=== PATIENT | male | born 1945 | race African-American/Black ===

== ENCOUNTER → 2016-10-28 | Outpatient (CLI) | payer OTHER ==
--- NOTE | 2016-10-28 17:16 | CT ---
CT Abdomen and Pelvis Without Contrast Clinical indication: Peritoneal dialysis catheter not draining. TECHNIQUE: 1.25 mm contiguous helical axial scanning through the abdomen and pelvis without contrast. Dose reduction technique was performed. Routine reconstructions were performed in the coronal and sa gittal planes. FINDINGS: The lung bases are clear. The liver, gallbladder, spleen, and adrenals are unremarkable. There is mild perinephric stranding. T he peritoneal dialysis catheter enters the peritoneum in the lower abdomen and is curled in the pelvi s. There is minimal fluid around it. A small amount of urine is noted in the bladder. Bilateral adeno mercedes is noted in both groins. IMPRESSION: 1. Peritoneal dialysis catheter coiled in the low pelvis. Minimal fluid is present. 2. Bilateral groin adenopathy. There are surgical clips suggesting there has been prior lymphadenecto my. The nodes are significantly enlarged up to 4.5 cm. Please correlate clinically and if clinically indicated these could be biopsied. A page was placed to Dr. Cedeno on October 28, 2016 at 1708 hours. I'm awaiting a return phone call. Critical results relayed by Dr. Potts to Dr. Fatima today at 1725 hours.
== END ==
LOC: FIMAGING 15:32
PROVIDERS: ATTEND Internal Medicine Nephrology
DX: Z49.02 Encounter for fitting and adjustment of peritoneal dialysis catheter (principal); R59.0 Localized enlarged lymph nodes

== ENCOUNTER → 2016-12-14 | Outpatient (CLI) | payer OTHER | LOC: FIMAGING 12:38 | PROVIDERS: ATTEND Internal Medicine Hematology & Oncology | DX: R59.0 Localized enlarged lymph nodes (principal); S86.112A Strain of other muscle(s) and tendon(s) of posterior muscle group at lower leg level, left leg, initial encounter ==

== ENCOUNTER → 2017-03-01 | Outpatient (CLI) | payer OTHER | LOC: FIMAGING 09:32 | PROVIDERS: ATTEND Internal Medicine Nephrology | DX: R59.1 Generalized enlarged lymph nodes (principal); E85.9 Amyloidosis, unspecified ==

== ENCOUNTER → 2017-03-24 | Outpatient (CLI) | payer OTHER | LOC: BHFA 13:30 | PROVIDERS: ATTEND Internal Medicine Cardiovascular Disease | DX: R07.9 Chest pain, unspecified (principal); R00.2 Palpitations; I13.0 Hypertensive heart and chronic kidney disease with heart failure and stage 1 through stage 4 chronic kidney disease, or unspecified chronic kidney disease; I10 Essential (primary) hypertension ==

== ENCOUNTER 2017-04-01 15:31 | Observation (INO) | payer OTHER ==
--- NOTE | 2017-04-01 15:39 | EDPHY ---
H & P HPI/ROS: HPI CHIEF COMPLAINT: Syncope during stress test, chest pain HISTORY OF PRESENT ILLNESS: This patient is 72-year-old male, significant past medical history for peritoneal dialysis, chronic kidney disease stage 5, hypertension, diabetes, BPH, was undergoing a [place] protocol stress test today. He had a syncopal episode while doing the test. He developed chest pain. The patient presents to the emergency room by EMS after he had a syncopal episode while undergoing a stress test with chest pain. Upon arrival here in the emergency room the nursing staff asked me to come and see and evaluate him as he was "in and out of consciousness" Upon evaluation the patient is slow to respond however he does follow commands response to my questions. He denies chest pain or shortness of breath at this time. Denies headache. Denies neck pain. Of note he appears unwell, slow to respond. Due to him developing a syncopal episode during his stress test and chest pain will consult Cardiology emergently for evaluation. Patient most likely needs cardiac catheterization. Past Medical History: Chronic kidney disease stage 5, peritoneal dialysis, hypertension, diabetes, BPH Past Surgical History: No recent surgical history, history of peritoneal dialysis catheter Social History: Denies daily use drugs alcohol tobacco Family History: No family at bedside. ROS REVIEW OF SYSTEMS: A comprehensive 10 point review of systems is otherwise negative aside from elements mentioned in the history of present illness. Exam Constitutional appears unwell, slow to respond, does follow commands triage nursing summary reviewed, vital signs reviewed, awake/alert. Eyes normal conjunctivae and sclera, EOMI, PERRLA. HENT normal inspection, atraumatic, moist mucus membranes, no epistaxis, neck supple/ no meningismus, no raccoon eyes. Respiratory clear to auscultation bilaterally, normal breath sounds, no respiratory distress, no wheezing. Cardiovascular rate normal, regular rhythm, no murmur, no edema, distal pulses normal. Gastrointestinal soft, non-tender, no rebound, no guarding, normal bowel sounds, no distension, no pulsatile mass. Genitourinary no CVA tenderness. Musculoskeletal no midline vertebral tenderness, full range of motion, no calf swelling, no tenderness of extremities, no meningismus, good pulses, neurovascularly intact. Skin pink, warm, & dry, no rash, skin atraumatic. Neurologic awake, alert and oriented x 3, AAOx3, moves all 4 extremities equally, motor intact, sensory intact, CN II-XII intact, normal cerebellar, normal vision, normal speech. Psychiatric normal mood/affect. Heme/Lymph/Immune no lymphadenopathy. Differential Diagnosis: Includes but is not limited to in a particular order syncope during stress test, acute [place], ischemic cardiac disease, stroke, head bleed. Medical Decision Making: Plan for this patient full cardiac exercise specialist, EKG, IV establishment, IV blood work, cardiology consultation, EKG to rule rule out acute coronary syndrome. Re-evaluation: EKG interpretation by me on record in [employer] system. Impression time of EKG 1539, this is sinus rhythm rate of 79 T-wave inversions V1 V2. ST depression V4 V5 V6. Motion artifact lead to 3 AVF. Prolonged QT interval of 502. EKG interpretation by me on record in [employer] system. Impression repeat EKG time a repeat EKG 1540, this is sinus rhythm rate of 78 T-wave inversions V1 V2, no ST elevation appreciated. S 1549: At this time I did page Cardiology for an emergent consult for this patient. At this time patient is hemodynamically stable. Will proceed with IV fluid bolus full cardiac exercise specialist blood work CT head chest x-ray. 1613: Spoke with Dr. Sin Souza, who would like this patient admitted to the medicine service. Will plan for medical clearance and then cardiac catheterization most likely tomorrow. At this time patient is chest pain-free. CT scan of the head without IV contrast The results of the study are negative for anything acute The study was read by Dr. Bain. I viewed the images myself on the PACS system. 1712: This patient remained stable. No acute distress. Resting comfortably. at bedside. Plan will be for admission given chest pain and syncope during stress test. Is noted his troponin is negative. Does have D-dimer but gets peritoneal dialysis. He is not hypoxic and not tachycardic here. His EKG did show some T-waves. He currently does not have any chest pain or shortness of breath. Plan will be for admission. NPO at midnight. Most likely cardiac catheterization tomorrow. Source: Patient, EMS - Medical/Surgical History Hx Asthma: No Hx Chronic Respiratory Disease: No Hx Diabetes: No Hx Cardiac Disease: No Hx Renal Disease: Yes Hx Cirrhosis: No Hx Alcoholism: No Hx HIV/AIDS: No Hx Splenectomy or Spleen Trauma: No Other PMH: ANEMIA, HYPOALDOSTERONISM, DVT, GOUT, HTN, B-CELL LYMPHOMA, AMYLOIDOSIS, CKD, DM 1, - Social History Smoking Status: Never smoked Constitutional: Initial Vital Signs Temperature (C) 36.3 C 04/01/17 15:31 Heart Rate 76 04/01/17 15:31 Respiratory Rate 18 04/01/17 15:31 Blood Pressure 157/96 H 04/01/17 15:31 O2 Sat (%) 97 04/01/17 15:31 O2 Delivery Mode Nasal Cannula O2 (L/minute) 2 Allergies/Adverse Reactions: LUIS M Inhibitors [Luis M Inhibitors] Allergy (Severe, Verified 07/28/10 20:15) Lip swelling Home Medications: Medication Instructions Recorded Calcitriol [Calcitriol (*)] 0.25 mcg PO DAILY 04/01/17 Fludrocortisone Acetate [Florinef 0.1 mg PO DAILY 04/01/17 0.1 MG (RX)] Gabapentin 600 mg PO HS 04/01/17 Metoprolol Tartrate [Metoprolol 25 mg PO BID MDD STARTED 03/25/17 04/01/17 Tartrate] Pantoprazole Sodium [Protonix 40mg 40 mg PO DAILY PRN 04/01/17 (*)] Sevelamer Carbonate [Renvela] 800 mg PO BID 04/01/17 Sildenafil Citrate [Viagra 50 MG 50 mg PO DAILY PRN 04/01/17 (*)] Tamsulosin HCl [Tamsulosin HCl] 0.4 mg PO DAILY 04/01/17 traMADol [Ultram 50 mg (*)] 50 mg PO Q4 PRN 04/01/17 Medical Decision Making - Diagnostics Imaging Results: Imaging Impressions Chest X-Ray 04/01/17 15:44 Impression: 1. No acute pulmonary disease. 2. Atherosclerotic tortuous aorta. Head CT 04/01/17 15:45 Impression: 1. Minimal cerebral atrophy. 2. No acute hemorrhage, hydrocephalus or mass effect. 3.Consider MRI of the brain without and with contrast enhancement, if there is continued clinical concern. Findings and recommendations discussed with Emergency Department physician, Justny Arteaga MD at 16:41 hour, 04/01/2017. Final report concurs with initial preliminary interpretation. - Data Points Laboratory Results: Laboratory Results 04/01/17 15:35 04/01/17 15:35 04/01/17 04/01/17 04/01/17 15:35 15:35 15:35 WBC 4.84 10^3/uL 10^3/uL (3.80-9.50) RBC 2.86 10^6/uL L 10^6/uL (4.40-6.38) Hgb 8.7 g/dL L g/dL (13.7-17.5) Hct 26.8 % L % (40.0-51.0) MCV 93.7 fL fL (81.5-99.8) MCH 30.4 pg pg (27.9-34.1) MCHC 32.5 g/dL g/dL (32.4-36.7) RDW 13.5 % % (11.5-15.2) Plt Count 209 10^3/uL 10^3/uL (150-400) MPV 9.3 fL fL (8.7-11.7) Neut % (Auto) 58.3 % % (39.3-74.2) Lymph % (Auto) 26.0 % % (15.0-45.0) [place] % (Auto) 12.4 % % (4.5-13.0) Eos % (Auto) 2.3 % % (0.6-7.6) Baso % (Auto) 0.8 % % (0.3-1.7) Nucleat RBC Rel Count 0.0 % % (0.0-0.2) Absolute Neuts (auto) 2.82 10^3/uL 10^3/uL (1.70-6.50) Absolute Lymphs (auto) 1.26 10^3/uL 10^3/uL (1.00-3.00) Absolute Monos (auto) 0.60 10^3/uL 10^3/uL (0.30-0.80) Absolute Eos (auto) 0.11 10^3/uL 10^3/uL (0.03-0.40) Absolute Basos (auto) 0.04 10^3/uL 10^3/uL (0.02-0.10) Absolute Nucleated RBC 0.00 10^3/uL 10^3/uL (0-0.01) Immature Gran % 0.2 % % (0.0-1.1) Immature Gran # 0.01 10^3/uL 10^3/uL (0.00-0.10) PT 14.4 SEC SEC (12.0-15.0) INR 1.13 (0.83-1.16) APTT 26.5 SEC SEC (23.0-38.0) D-Dimer 3.27 ug/mLFEU H ug/mLFEU (0.00-0.50) Sodium 137 mEq/L mEq/L (134-144) Potassium 4.7 mEq/L mEq/L (3.5-5.2) Chloride 97 mEq/L mEq/L (97-110) Carbon Dioxide 23 mEq/l mEq/l (22-31) Anion Gap 17 mEq/L H mEq/L (8-16) BUN 70 mg/dL H mg/dL (7-23) Creatinine 12.8 mg/dL H* mg/dL (0.7-1.3) Estimated GFR 4 Glucose 83 mg/dL mg/dL (70-100) Calcium 9.2 mg/dL mg/dL (8.5-10.4) Magnesium 2.3 mg/dL mg/dL (1.6-2.3) Total Bilirubin 0.7 mg/dL mg/dL (0.1-1.4) Conjugated Bilirubin 0.6 mg/dL H mg/dL (0.0-0.5) Unconjugated Bilirubin 0.1 mg/dL mg/dL (0.0-1.1) AST 23 IU/L IU/L (17-59) ALT 31 IU/L IU/L (21-72) Alkaline Phosphatase 89 IU/L IU/L (38-126) Creatine Kinase 403 IU/L H IU/L (0-224) CK-MB (CK-2) Fraction 3.61 ng/mL H ng/mL (0-3.19) CK-MB (CK-2) % 0.9 % % (0.0-4.0) Creatine Kinase Interp NEGATIVE (NEGATIVE) Troponin I 0.022 ng/mL ng/mL (0-0.034) NT-Pro-B Natriuret Pep 6250 pg/mL H pg/mL (0-125) Total Protein 6.4 g/dL g/dL (6.3-8.2) Albumin 3.9 g/dL g/dL (3.5-5.0) Lipase 235.0 IU/L IU/L (23-300) Medications Given: Discontinued Medications Sodium Chloride (Ns) 500 mls @ 1,000 mls/hr IV ONCE ONE PRN Reason: Protocol Stop: 04/01/17 16:13 Last Admin: 04/01/17 16:06 Dose: 500 mls Departure - Departure Disposition: [facility] Inpatient Acute Clinical Impression: Chest pain Qualifiers: Chest pain type: unspecified Qualified Code(s): R07.9 - Chest pain, unspecified Syncope Qualifiers: Syncope type: unspecified Qualified Code(s): R55 - Syncope and collapse Condition: Fair Referrals: Patient,NotPresent [Unknown] - As per Instructions
[2017-04-01] MEDS ORDERED: NS 500 ML IV ONE (15:44)
--- NOTE | 2017-04-01 15:46 | CPEKG ---
Heart Rate: 78 RR Interval: 769 P-R Interval: 216 QRSD Interval: 88 QT Interval: 436 QTC Interval: 497 P [place]: 44 QRS [place]: 5 T Wave [place]: 63 EKG Severity - BORDERLINE ECG - EKG Impression: SINUS RHYTHM EKG Impression: BORDERLINE T ABNORMALITIES, ANT-LAT LEADS EKG Impression: BORDERLINE PROLONGED QT INTERVAL Electronically Signed By: Justyn Arteaga 01-Apr-2017 23:18:32
[2017-04-01 15:56] LABS: % IMMATURE GRANULYOCYTES 0.2 % (0.0-1.1); ABSOLUTE IMMATURE GRANULOCYTES 0.01 10^3/uL (0.00-0.10); ADD DIFF? NO; ADD MORPH? NO; ADD SCAN? NO; ATYPICAL LYMPHOCYTE FLAG 0 (0-99); FRAGMENT RBC FLAG 0 (0-99); HEMATOCRIT 26.8 % (40.0-51.0); HEMOGLOBIN 8.7 g/dL (13.7-17.5); LEFT SHIFT FLG 0 (0-99); LIPEMIA HEMOLYSIS FLAG 80 (0-99); MEAN CELL HEMOGLOBIN 30.4 pg (27.9-34.1); MEAN CELL HEMOGLOBIN CONCENTR. 32.5 g/dL (32.4-36.7); MEAN CELL VOLUME 93.7 fL (81.5-99.8); MEAN PLATELET VOLUME 9.3 fL (8.7-11.7); PLATELET CLUMPS FLAG 0 (0-99); PLATELET COUNT 209 10^3/uL (150-400); RED BLOOD CELL COUNT 2.86 10^6/uL (4.40-6.38); RED CELL DISTRIBUTION WIDTH 13.5 % (11.5-15.2)
[2017-04-01 16:05] LABS: ALANINE AMINOTRANSFERASE 31 IU/L (21-72); ALBUMIN 3.9 g/dL (3.5-5.0); ALKALINE PHOSPHATASE 89 IU/L (38-126); ANION GAP 17 mEq/L (8-16); APTT 26.5 SEC (23.0-38.0); ASPARTATE AMINOTRANSFERASE 23 IU/L (17-59); BILIRUBIN,TOTAL 0.7 mg/dL (0.1-1.4); BILIRUBIN-CONJUGATED 0.6 mg/dL (0.0-0.5); BILIRUBIN-UNCONJUGATED 0.1 mg/dL (0.0-1.1); CALCIUM 9.2 mg/dL (8.5-10.4); CARBON DIOXIDE 23 mEq/l (22-31); CHLORIDE 97 mEq/L (97-110); GLOMERULAR FILTRATION RATE 4; GLUCOSE 83 mg/dL (70-100); INR 1.13 (0.83-1.16); MAGNESIUM 2.3 mg/dL (1.6-2.3); POTASSIUM 4.7 mEq/L (3.5-5.2); PROTIME(PATIENT) 14.4 SEC (12.0-15.0); SODIUM 137 mEq/L (134-144); TOTAL PROTEIN 6.4 g/dL (6.3-8.2)
[2017-04-01 16:17] LABS: TROPONIN I 0.022 ng/mL (0-0.034)
[2017-04-01 16:27] LABS: CREATININE 12.8 mg/dL (0.7-1.3)
[2017-04-01 16:28] LABS: CK-MB INTERPRETATION NEGATIVE (NEGATIVE); CREATINE KINASE-MB FRACTION 3.61 ng/mL (0-3.19)
[2017-04-01] MEDS ORDERED: SILDENAFIL CITRATE 50 MG TAB PO PRN (17:57)
[2017-04-01] MEDS ORDERED: PANTOPRAZOLE SODIUM 40 MG TAB PO PRN (17:57)
--- NOTE | 2017-04-01 18:09 | GHP ---
[f rep st] HISTORY AND PHYSICAL DATE OF ADMISSION: 04/01/2017 CHIEF COMPLAINT: Passed out. HISTORY OF PRESENT ILLNESS: This is a 72-year-old male with history of amyloidosis and stage 5 chronic kidney disease on peritoneal dialysis who has been having intermittent chest pain with exertion for some time. Today he was at [facility] when he was undergoing a treadmill stress test, when he became quite winded and developed what he describes as some sharp chest pressure. He then lost consciousness and passed out. Upon coming to, he had been noted to be confused over the past few hours. The patient is unable to tell me what happened. At the time of my exam, he is chest pain free. He denies any shortness of breath. He does continued to have some confusion. He has been dialyzing at home every night without issues. He recently saw his manager state yesterday who thought he was doing well. PAST MEDICAL HISTORY: 1. Amyloidosis. 2. Anemia of chronic disease. 3. Stage 5 chronic kidney disease on peritoneal dialysis. 4. DVT. 5. Depression. 6. Type 2 diabetes mellitus. 7. B-cell lymphoma. 8. Hypertension. 9. Gout. 10. Nocturia. 11. Prostate cancer. PAST SURGICAL HISTORY: 1. Left knee replacement. 2. Lymph node biopsy. 3. Tonsillectomy. 4. Vasectomy. 5. Peritoneal dialysis catheter placement. HOME MEDICATIONS: Reviewed. Refer to [employer] for details. ALLERGIES: KAY inhibitors. SOCIAL HISTORY: He denies any alcohol, tobacco, or illicit drug use. FAMILY HISTORY: Reviewed and noncontributory. PHYSICAL EXAMINATION: VITAL SIGNS: Blood pressure 155/98, pulse 78, respiratory rate 16, O2 saturation 96% on 2 L. Temperature afebrile. GENERAL: No acute distress. HEENT: Head: Normocephalic, atraumatic. Eyes: PERRLA. Sclerae anicteric. Mouth: Moist mucous membranes. NECK: Supple. No lymphadenopathy. CARDIOVASCULAR: S1, S2. No JVD. No lower extremity edema. PULMONARY: Lungs are clear. No wheezes, rales, or rhonchi. ABDOMEN: Soft, nontender, nondistended. No guarding or rebound tenderness. Normoactive bowel sounds. Peritoneal dialysis catheter is in place. EXTREMITIES: No clubbing or cyanosis. NEURO: Cranial nerves 2-12 grossly intact. No focal motor or sensory deficits. SKIN: Clear. No rashes. DIAGNOSTICS: WBC is 4.8, hemoglobin 8.7, hematocrit 26.8, platelets 209. D- dimer is 3.27. Sodium 137, potassium 4.7, BUN 70, creatinine 12.8, glucose 83. BNP 6250. Troponin was negative. Head CT showed no acute hemorrhage, hydrocephalus or mass effect. Chest x-ray: No acute pulmonary disease. EKG, which I visualized and personally interpreted, shows sinus rhythm, rate 78 beats per minute. There are T-wave abnormalities in the anterior leads. ASSESSMENT AND PLAN: This is a 72-year-old male with history of end-stage renal disease, who has been having exertional chest pain suspicious for angina for some time presenting with: 1. Syncope in the setting of exertion with a stress test, concerning for acute coronary syndrome. Plan: The patient will be placed on observation where we will cycle his troponins. Cardiology has been consulted by the emergency room physician, Dr. Arteaga. Will plan for cardiac catheterization in the morning. 2. Elevated D-dimer with history of pulmonary embolisms. 3. Plan: I initially considered a CTA of the chest, but decided against it since he still makes urine. He is currently asymptomatic. Consider VQ scan in the morning if PE is a concern. 4. End-stage renal disease, on peritoneal dialysis. Plan is to continue hemodialysis as scheduled. 5. Mild confusion of unclear etiology. Plan: Continue to monitor. I suspect that this is most likely due to his syncopal episode where he probably had some decrease in cerebral perfusion. Suspect a cardiac source. We will also order an echocardiogram. /[id number]/MODL MTDD
[2017-04-01] MEDS ORDERED: GABAPENTIN 300 MG CAP PO SCH (21:00)
[2017-04-01] MEDS: SEVELAMER HCL 800 MG TAB PO SCH (22:18)
[2017-04-01] MEDS: METOPROLOL TARTRATE 25 MG TAB PO SCH (22:18)
[2017-04-02 03:52] VITALS: TEMP 98.1
[2017-04-02] MEDS ORDERED: CALCITRIOL 0.25 MCG CAP PO SCH (09:00)
[2017-04-02] MEDS ORDERED: TAMSULOSIN HCL 0.4 MG CAP PO SCH (09:00)
[2017-04-02] MEDS ORDERED: FLUDROCORTISONE ACETATE 0.1 MG TAB PO SCH (09:00)
--- NOTE | 2017-04-02 10:17 | ECHO ---
[id number] + + [id number] : : [place] [id number] : : [phone] + + Adult Echocardiographic Report + ------+ :Name: MARC SALDANA DStudy Date: 04/02/2017 08:34 AM BP: 105/62 mmHg : : Hospital Admission Number: [id number] [facility] n: 214: :: 1945 Gender: Male Height: 68 in : :Age: 72 yrs Race: [facility] [place] Weight: 192 lb : :Reason For Study: syncope : : BSA: 2.0 meters 2 : :History: syncope : + ------+ MMode/2D Measurements \T\ Calculations IVSd: 1.1 cm RVDd: 2.8 cm FS: 34.9 % Ao root diam: LVPWd: 0.94 cm LVIDd: 4.7 cm EDV(Teich): 3.6 cm LVIDs: 3.1 cm 103.5 ml ESV(Teich): 37.2 ml EF(Teich): 64.1 % LVLd ap4: 10.1 cm SV(MOD-sp4): EDV(MOD-sp4): 102.0 ml 172.0 ml LVLs ap4: 8.7 cm ESV(MOD-sp4): 70.0 ml EF(MOD-sp4): 59.3 % Normal Measurement Values: + + :LVIDd (3.5-5.7cm) IVSd (0.6-1.1cm) LVPWd (0.6-1.1cm) Aortic Root (2.0-3.7cm)Left Atrium (1.5-4.0cm): :LV Vol(d) (76-115ml) LV Vol(s) (29-48ml) Ejec Fraction (50-65%)PV Pedro (0.6- 1.2m/s) TV Pedro (0.4-1.0m/s) : :MV E Pedro (0.8-1.0m/s)MV A Pedro (0.3-1.0m/s)LVOT Pedro (0.7-1.2m/s) Asc Ao Pedro ( 0.9-1.8m/s) : + + Doppler Measurements \T\ Calculations MV E max pedro: Ao V2 max: LV V1 max: PA V2 max: 66.1 cm/sec 134.2 cm/sec 92.2 cm/sec 89.6 cm/sec MV A max pedro: Ao max P.2 mmHgLV V1 max PG: PA max P.3 cm/sec 3.4 mmHg 3.2 mmHg MV E/A: 1.3 MV dec time: 0.27 sec TR max pedro: 167.0 cm/sec TR max P.1 mmHg RAP systole: 5.0 mmHg RVSP(TR): 16.1 mmHg Left Ventricle The left ventricle is normal in size and function. There is borderline concentric left ventricular hypertrophy. Ejection Fraction = 60%. Small area of discrete hypokinesis in the mid septum. The remaining velázquez contract normally. Right Ventricle The right ventricle is normal in size and function. Atria The left atrium is mildly dilated. The Left Atrial Volume is 38 ml/m2. Right atrial size is normal. Mitral Valve The mitral valve is normal in structure and function. There is no mitral valve stenosis. There is trace mitral regurgitation. Tricuspid Valve The tricuspid valve is normal in structure and function. There is no tricuspid stenosis. There is trace tricuspid regurgitation. Right ventricular systolic pressure is 16mmHg. Aortic Valve The aortic valve is trileaflet. There is no aortic stenosis. There is no aortic insufficiency. Pulmonic Valve The pulmonic valve is not well visualized. Trace pulmonic valvular regurgitation. Great Vessels The aortic root is normal size. Pericardium/Pleural There is no pericardial effusion. Conclusion A two-dimensional transthoracic echocardiogram with M-mode and Doppler was performed. The left ventricle is normal in size and function. There is borderline concentric left ventricular hypertrophy. Ejection Fraction = 60%. Small area of discrete hypokinesis in the mid septum. The remaining velázquez contract normally. The left atrium is mildly dilated. The Left Atrial Volume is 38 ml/m2. There is trace mitral regurgitation. There is trace tricuspid regurgitation. Right ventricular systolic pressure is 16mmHg. Trace pulmonic valvular regurgitation. Final Reading Physician: Silvino Armenta signed on 04/02/2017 10:16 AM Ordering Physician: Adalberto Rahman Performed By: Roxann Tracy
[2017-04-02] MEDS ORDERED: VERAPAMIL 5 MG/2 ML VIAL ONE (10:40)
[2017-04-02] MEDS ORDERED: MIDAZOLAM 2 MG/2 ML VIAL ONE (10:40)
[2017-04-02] MEDS ORDERED: LIDOCAINE 1% 300 MG/30 ML SDV ONE (10:40)
[2017-04-02] MEDS ORDERED: HEPARIN 10,000 UNIT/10 ML MDV ONE (10:40)
[2017-04-02] MEDS ORDERED: fentaNYL 100 MCG/2 ML INJ ONE (10:40)
[2017-04-02] MEDS ORDERED: IOPAMIDOL (ISOVUE-370) 150 ML BTL IV ONE (10:41)
--- NOTE | 2017-04-02 11:42 | PDDXCAT ---
Diagnostic Cath Note - . Date: 04/02/17 Mercantile Agent: Harley Indication: Class III or IV angina, which improves to class I/II w medical therapy, High-risk criteria on noninvasive testing (choose option below) High-risk criteria on non-invasive testing: high-risk treadmill score (score<=- 11) - Procedure Access: left wrist Procedure: left heart catheterization, coronary angiography, left ventriculogram - Materials Left Heart Cath size: 5F Left Heart Cath materials: JL5.0, JR4.0 - Findings-Left Heart Catheterization LM: Unobstructed LAD: Unobstructed LCX: Dominant:unobstructed RCA: Nondominant. Unobstructed. EDP: 15mmHg LVEF: 55% Wall motion: normal Complications: none Estimated blood loss: <50ml Closure method: TR Band Assessment: Normal Cors. Normal systolic function with elevated filling pressures. Angina related to anemia Patient Problems: Problems Problem Status Onset Headache Active Renal failure Acute Hyperkalemia Acute Chest pain Acute Syncope Acute
[2017-04-02] MEDS: SEVELAMER HCL 800 MG TAB PO SCH (13:47)
[2017-04-02] MEDS: METOPROLOL TARTRATE 25 MG TAB PO SCH (13:48)
[2017-04-02 14:39] VITALS: BP 127/75; PULSE 57; RESP 16; O2SAT 99
--- NOTE | 2017-04-02 15:27 | GHP ---
[f rep st] HISTORY AND PHYSICAL DATE OF ADMISSION: 04/01/2017 DISCHARGE DIAGNOSES: 1. Syncope while doing treadmill stress test. 2. End-stage renal disease on peritoneal dialysis. 3. History of amyloid. 4. Anemia. 5. History of deep venous thrombosis. 6. Depression. 7. Type 2 diabetes. 8. Hypertension. HISTORY: This is a 72-year-old male, who is on peritoneal dialysis. He is having intermittent ches t pain with exertion. He underwent stress testing, but then became quite winded, said he could not do it anymore and then had chest pain and lost consciousness. HOSPITAL COURSE: Patient was admitted and was monitored on telemetry. He did undergo a CT angiogra m in the morning which did not show any coronary blockages. He is doing well and will be discharged home. I am wondering if he might have been on the water meter mechanic side when doing the stress test or perhaps could not get his heart rate up enough for the level of activity. Regardless, he will be discharge d home today. He will follow up with Nephrology in the future in regard to any more symptoms. /[id number]/MODL
== END 2017-04-02 17:00 | disposition home or self-care (01) ==
LOC: EDUNIT# → INTOOBSV 17:12 → F2W 19:31
PROVIDERS: ADMIT Family Medicine; ATTEND Family Medicine
PROC: B2151ZZ Fluoroscopy of Left Heart using Low Osmolar Contrast (ICD-10-PCS; principal; 2017-04-01)
PROC: B2111ZZ Fluoroscopy of Multiple Coronary Arteries using Low Osmolar Contrast (ICD-10-PCS; principal; 2017-04-01)
PROC: 4A023N7 Measurement of Cardiac Sampling and Pressure, Left Heart, Percutaneous Approach (ICD-10-PCS; principal; 2017-04-01)
DX: R55 Syncope and collapse (principal); R07.9 Chest pain, unspecified; I12.0 Hypertensive chronic kidney disease with stage 5 chronic kidney disease or end stage renal disease; E11.22 Type 2 diabetes mellitus with diabetic chronic kidney disease; N18.5 Chronic kidney disease, stage 5; N40.0 Benign prostatic hyperplasia without lower urinary tract symptoms; Z99.2 Dependence on renal dialysis; D64.9 Anemia, unspecified; Z86.718 Personal history of other venous thrombosis and embolism; F32.9 Major depressive disorder, single episode, unspecified
CPT/HCPCS: 70450; 71010; 93005; 93306; 93458; 93880; 96360; 97161; 97165; 99285; C1769; G0378; G8978; G8979; G8980; G8987; G8988; G8989; J1644; J2250; J3010; Q9967

== ENCOUNTER → 2017-04-01 | Outpatient (CLI) | payer OTHER | LOC: BHFA 13:15 | PROVIDERS: ATTEND Internal Medicine Cardiovascular Disease | DX: R07.9 Chest pain, unspecified (principal); I10 Essential (primary) hypertension ==

== ENCOUNTER → 2017-04-16 | Outpatient (CLI) | payer OTHER | LOC: BHFA 14:00 | PROVIDERS: ATTEND Internal Medicine Cardiovascular Disease | DX: R07.9 Chest pain, unspecified (principal); R00.2 Palpitations; N28.9 Disorder of kidney and ureter, unspecified; I10 Essential (primary) hypertension ==

== ENCOUNTER → 2017-06-03 | Outpatient (CLI) | payer OTHER | LOC: FIMAGING 13:11 | PROVIDERS: ATTEND Internal Medicine Cardiovascular Disease | DX: R06.02 Shortness of breath (principal) | CPT/HCPCS: 71020; 78582; A9540; A9558 ==

== ENCOUNTER → 2017-06-04 | Day surgery (SDC) | payer OTHER | END | disposition home or self-care (01) | LOC: BMCIMAGING 09:09 | PROVIDERS: ATTEND Urology | DX: C61 Malignant neoplasm of prostate (principal) ==

== ENCOUNTER → 2017-06-24 | Outpatient (CLI) | payer OTHER | LOC: BHFA 11:00 | PROVIDERS: ATTEND Internal Medicine Cardiovascular Disease | DX: R07.9 Chest pain, unspecified (principal); R06.09 Other forms of dyspnea ==

== ENCOUNTER → 2017-09-08 | Outpatient (CLI) | payer OTHER | LOC: BHFA 10:00 | PROVIDERS: ATTEND Internal Medicine Cardiovascular Disease | DX: R06.09 Other forms of dyspnea (principal) ==

== ENCOUNTER → 2017-09-14 | Outpatient (CLI) | payer OTHER | LOC: BHFA 14:00 | PROVIDERS: ATTEND Internal Medicine Cardiovascular Disease | DX: R06.02 Shortness of breath (principal) ==

== ENCOUNTER 2017-09-24 09:44 | Day surgery (SDC) | payer OTHER ==
[~2017-09-24 09:44] MED LIST: ACETAMINOPHEN 325 MG TAB PO PRN; NS 1,000 ML IV SCH; TEMAZEPAM 15 MG CAP PO PRN
[2017-09-24] MEDS ORDERED: MIDAZOLAM 2 MG/2 ML VIAL ONE (10:02)
[2017-09-24] MEDS ORDERED: fentaNYL 100 MCG/2 ML INJ ONE (10:02)
[2017-09-24] MEDS ORDERED: LIDOCAINE 1% 300 MG/30 ML SDV ONE (10:02)
--- NOTE | 2017-09-24 10:29 | CPEKG ---
Heart Rate: 72 RR Interval: 833 P-R Interval: 168 QRSD Interval: 106 QT Interval: 488 QTC Interval: 535 P [place]: 38 QRS [place]: 7 T Wave [place]: 64 EKG Severity - ABNORMAL ECG - EKG Impression: SINUS RHYTHM EKG Impression: PROLONGED QT INTERVAL Electronically Signed By: Melisa Kaplan 24-Sep-2017 10:50:47
[2017-09-24 10:48] LABS: % IMMATURE GRANULYOCYTES 0.2 % (0.0-1.1); ABSOLUTE IMMATURE GRANULOCYTES 0.01 10^3/uL (0.00-0.10); ADD DIFF? NO; ADD MORPH? NO; ADD SCAN? NO; ATYPICAL LYMPHOCYTE FLAG 0 (0-99); FRAGMENT RBC FLAG 0 (0-99); HEMATOCRIT 27.8 % (40.0-51.0); HEMOGLOBIN 9.4 g/dL (13.7-17.5); LEFT SHIFT FLG 0 (0-99); LIPEMIA HEMOLYSIS FLAG 90 (0-99); MEAN CELL HEMOGLOBIN 31.6 pg (27.9-34.1); MEAN CELL HEMOGLOBIN CONCENTR. 33.8 g/dL (32.4-36.7); MEAN CELL VOLUME 93.6 fL (81.5-99.8); MEAN PLATELET VOLUME 8.7 fL (8.7-11.7); PLATELET CLUMPS FLAG 0 (0-99); PLATELET COUNT 210 10^3/uL (150-400); RED BLOOD CELL COUNT 2.97 10^6/uL (4.40-6.38); RED CELL DISTRIBUTION WIDTH 13.4 % (11.5-15.2)
--- NOTE | 2017-09-24 10:55 | PDHPUP ---
History & Physical Update H&P update statement: This history and physical update is based on an assessment of the patient which was completed after admission or registration (within 24 hours), but prior to the surgery/procedure. H&P update: H&P reviewed & patient examined, no change in patient's condition since H&P completed
--- NOTE | 2017-09-24 10:55 | PDPROPOC ---
Sedation Plan of Care Sedation Plan of Care: vital signs stable, mental status noted, patient educated of risks, benefits, alternatives, patient can tolerate sedation ASA Classification: ASA 2 Planned drugs: fentanyl, midazolam Mallampati Score: Class 2 Mallampati Reference Image: Patient passed 3-3-2 rule?: Yes
[2017-09-24 10:59] LABS: INR 1.12 (0.83-1.16); PROTIME(PATIENT) 14.6 SEC (12.0-15.0)
[2017-09-24 11:00] LABS: APTT 28.2 SEC (23.0-38.0)
[2017-09-24] MEDS ORDERED: NS 500 ML IV ONE (11:00)
[2017-09-24 11:21] LABS: ANION GAP 17 mEq/L (8-16); CALCIUM 9.6 mg/dL (8.5-10.4); CARBON DIOXIDE 27 mEq/l (22-31); CHLORIDE 94 mEq/L (97-110); GLOMERULAR FILTRATION RATE 4; GLUCOSE 96 mg/dL (70-100); POTASSIUM 3.3 mEq/L (3.5-5.2); SODIUM 138 mEq/L (134-144)
[2017-09-24 11:29] LABS: CREATININE 11.9 mg/dL (0.7-1.3)
--- NOTE | 2017-09-24 12:18 | PDDXCAT ---
Diagnostic Cath Note - . Date: 09/24/17 Tube Knitter: Other (renetta) Redevelopment Specialist: Chilo Indication: other (class III-IV NYHA, rule out cardiac amyloidosis) High-risk criteria on non-invasive testing: severe exercise left ventricular dysfunction (exercise LVEF<35%) - Procedure Access: right groin Procedure: left heart catheterization, right heart catheterization (and RV biopsies x 4) - Materials Left Heart Cath size: 6F Right Heart Cath size: 7F Right Heart Cath materials: PWP catheter - Findings-Right Heart Catheterization RA: 10 RV: 45/13 PA: 39/15 (25) PAOP: 18 AO: 145/90 CO: 7.3 CI: 3.6 Complications: none Estimated blood loss: <50ml Closure method: Angioseal Assessment: successfu LV and RV pressures assessment and RV bx x 4 Plan: await final cardiac bx pathology results. no change in current meds. Intervention: none Patient Problems: Problems Problem Status Onset Headache Active Chest pain Acute Hyperkalemia Acute Renal failure Acute Syncope Acute
[2017-09-24] MEDS ORDERED: HYDROCODONE/APAP 5/325 TAB PO PRN (12:20)
[2017-09-24] MEDS ORDERED: OXYCODONE/APAP 5/325 TAB PO PRN (12:20)
[2017-09-24] MEDS ORDERED: NITROGLYCERIN 0.4 MG BTL SL PRN (12:20)
[2017-09-24] MEDS ORDERED: ATROPINE SULFATE 1 MG/10 ML SYR IVP PRN (12:20)
[2017-09-24] MEDS ORDERED: ATROPINE SULFATE 1 MG/10 ML SYR ONE (12:54)
--- NOTE | 2017-09-24 15:34 | ECHO ---
[email or web address] [place] [id number] Main: [phone] Fax: Transthoracic Echocardiogram Name: MARC SALDANA MR#: [id number] Study Date: 09/24/2017 Study Time: 12:41 PM Date of : 1945 Age: 72 year(s) Height: ( ) Weight: ( ) BSA: Gender: Male Examination: Limited Echo Indication: Post Right heart biopsy. Image Quality: Contrast: Requested by: Hossein Hunter BP: / Heart Rate: Rhythm: Indication: Post Right heart biopsy. Procedure Staff Mechanical Operator: Robert Stinson Reading Physician: Hossein Hnuter Requesting Provider: Conclusions: This is a limited echo to evaluate for a pericardial effusion post biopsy. There is no obvious pericardial effusion. No fluid is noted around the RV freewall or RA in apical and subcostal views.. Measurements: Chambers Valvular Assessment AV/MV Valvular Assessment TV/PV Normal Normal Normal Name Value Range Name Value Range Name Value Range Continued Measurements: Findings: Exam Comments: This is a limited echo to evaluate for a pericardial effusion post biopsy. There is no obvious pericardial effusion. No fluid is noted around the RV freewall or RA in apical and subcostal views.. (No Signature Object) Patient: MARC SALDANA Study Date: 09/24/2017 Page 1 of 1 12:41 PM [id number]
--- NOTE | 2017-09-25 13:42 | CPIP ---
[f rep st] INVASIVE CARDIAC PROCEDURE DATE OF PROCEDURE: 09/24/2017 PROCEDURE PERFORMED: Right ventricular endomyocardial biopsies x4. INDICATIONS: Worsening shortness of breath and known amyloidosis of the kidneys, evaluate for cardia c amyloidosis. CONSENT: Risks, benefits, and alternatives discussed with patient and his son. They wished to proce ed. TECHNICAL DIFFICULTIES: None. MEDICATIONS USED: Versed 1 mg IV and fentanyl 25 mcg IV with continuous pulse oximetry and hemodynam ic monitoring. DESCRIPTION OF PROCEDURE AND RESULTS: The patient immediately beforehand had had a right heart clifton terization with a 7-Swiss sheath in the right femoral vein. This was J wired out for an out of plan e biopsy sheath. There was moderate amount of difficulty getting the biopsy sheath up through the in ferior vena cava out to the right ventricular apex. Eventually this was done under fluoroscopic and Sylva-Kenny catheter support. RV biopsies x4 were done along the right ventricular septum under fluoro scopic guidance. At the end of the case, the bioptome and RV biopsy sheath were removed. Manual hemostasis was done o f the right groin with no residual bleeding. The patient did have some back pain in the recovery carlos m afterwards. He has known chronic spine problem. An emergent echo was done which demonstrated continued LVEF of 55%-60% with hypertrophy and no signif icant pericardial effusion or tamponade. IMPRESSIONS: Successful right ventricular biopsies x4 along the right ventricular septum. Pathology is pending. COMPLICATIONS: None. In particular, fluoroscopy at the end of the case demonstrated no change in heart size to suggest a r apidly accumulating pericardial effusion nor did the echo in the CVC afterwards. Fluoroscopy also de monstrated no evidence of pneumothorax in the either lung corcoran. /[id number]/MODL
== END 2017-09-24 18:34 | disposition home or self-care (01) ==
LOC: FCATH 09:44
PROVIDERS: ATTEND Internal Medicine Cardiovascular Disease
PROC: B2111ZZ Fluoroscopy of Multiple Coronary Arteries using Low Osmolar Contrast (ICD-10-PCS; principal; 2017-09-24)
PROC: B2151ZZ Fluoroscopy of Left Heart using Low Osmolar Contrast (ICD-10-PCS; principal; 2017-09-24)
PROC: 02B Heart and Great Vessels, Excision (ICD-10-PCS; principal; 2017-09-24)
PROC: 4A023N8 Measurement of Cardiac Sampling and Pressure, Bilateral, Percutaneous Approach (ICD-10-PCS; principal; 2017-09-24)
DX: E85.4 Organ-limited amyloidosis (principal); D64.9 Anemia, unspecified
CPT/HCPCS: C1760; J0461; J1644; J2250; J3010

== ENCOUNTER 2017-11-11 21:07 | Inpatient (IN) | payer OTHER ==
--- NOTE | 2017-11-11 21:23 | CPEKG ---
Heart Rate: 90 RR Interval: 667 P-R Interval: 168 QRSD Interval: 104 QT Interval: 436 QTC Interval: 534 P Trevorton: 63 QRS Trevorton: -5 T Wave Trevorton: 68 EKG Severity - ABNORMAL ECG - EKG Impression: SINUS RHYTHM EKG Impression: PROLONGED QT INTERVAL Electronically Signed By: Consuelo Duncan 11-Nov-2017 21:38:48
--- NOTE | 2017-11-11 21:31 | EDPHY ---
HPI/HX/ROS/PE/MDM Narrative: CHIEF COMPLAINT: Chest and back pain HISTORY OF PRESENT ILLNESS: The patient is a 72 y/o male arriving with his son complaining of intermittent chest and back pain onset this evening around 17:30 , about 4 hours ago. His medical history includes amyloidosis, stage 5 kidney disease on peritoneal dialysis, anemia, diabetes, B-cell lymphoma, and hypertension. He completed his 3rd round of chemotherapy today for amyloidosis. This evening he developed chest pressure that "pushed through" to his back and he had difficulty catching his breath due to the pain. This pain would come and go, but he is unable to estimate how long it lasts in seconds vs. minutes or hours. The pain improves with belching and worsens with deep inspiration and has currently resolved completely. He has had similar symptoms previously and was evaluated by Dr. Chilel, cardiology. The pain was attributed to amyloid plaques in his heart. Recent cardiac biopsy revealed cardiac amyloidosis. He also complains of exertional dyspnea over the past several months and a baseline mild cough. He denies history of prior MS, CAD, or DVT. No fever, vomiting, abdominal pain, diarrhea, headache, weakness, paresthesias. He is a challenging historian. REVIEW OF SYSTEMS: Constitutional: No fever, no chills Eyes: No drainage ENT: No sore throat Respiratory: see HPI Cardiac: see HPI Gastrointestinal: No nausea, no vomiting, no abdominal pain Genitourinary: peritoneal dialysis, no dysuria Musculoskeletal: No leg pain or swelling Skin: No rash Neurological: No headache Psychiatric: depression PMH includes: 1. Amyloidosis 2. Anemia of chronic disease 3. Stage 5 chronic kidney disease on peritoneal dialysis 4. Superficial thrombophlebitis December 2016 5. Depression 6. Type 2 diabetes 7. B-cell lymphoma 8. Hypertension 9. Gout 10. Nocturia 11. Prostate cancer PSH includes: 1. Left knee replacement 2. Lymph node biopsy 3. Tonsillectomy 4. Vasectomy 5. Peritoneal dialysis catheter placement. Prior medical records reviewed including admission 04/01/17 for syncope. SOCIAL HISTORY: Son at bedside. Lives in [place]. . Retired. Communications Controller: Dr. Chilel, oncologist: Dr. Quiñones. EXAM: General Appearance: Alert, appears tired, but comfortable Eyes: Pupils equal and round, conjunctival pallor ENT, Mouth: Mucous membranes moist Neck: Normal inspection Respiratory: Lungs are clear to auscultation Cardiovascular: Regular rate and rhythm Gastrointestinal: Abdomen is soft and non-tender Neurological: A&O, nonfocal exam, gait not assessed Skin: Warm and dry Extremities: trace pedal edema Psychiatric: hernandez affect ED Course: This is a 72 y/o male with multiple comorbidities who is currently undergoing chemotherapy for amyloidosis and presents with a few-hour history of intermittent chest and back pain. Exam is unremarkable. Plan for standard cardiac evaluation with IV, labs, EKG, chest x-ray. EKG interpreted by me reveals normal sinus rhythm, rate 90, no ST or T segment changes. No evidence of ischemia. Chest x-ray: LLL infiltrate, widened mediastinum compared to x-ray 6 months ago , but is an AP view. Have ordered a PA view for better comparison. Repeat CXR similar to prior CXR, increased interstitial markings, c/w pulm edema. Laboratory studies reviewed, and reveal multiple abnormalitities, and multiple potential sources for cp. Ddimer elevated; pt unable to have CTA because of renal failure, will order bilateral LE sono's, anticoagulate tonight, and consider VQ scan in the am. Troponin elevated, which likely represents ACS; although he has CRF, prior troponins normal. EKG reviewed again and reveals no evidence of ischemia. Concern for amyloid plagues and worsening cardiac fxn. CXR with possible infiltrate; clinically pt does not have pneumonia, will observe. In addition, BNP markedly elevated, c/w pulm edema. Pt mainly sleeping an asymptomatic through his ED stay, however. Will admit for further evaluation. The hospitalist was consulted for admission. MDM: includes though not limited to ACS, PE, pneumonia, PTX, empyema, GI. - Data Points Imaging: I viewed and interpreted images myself Laboratory Results: Laboratory Results 11/11/17 21:30 11/11/17 11/11/17 11/11/17 21:30 21:30 21:30 WBC 5.65 10^3/uL 10^3/uL (3.80-9.50) RBC 2.84 10^6/uL L 10^6/uL (4.40-6.38) Hgb 9.2 g/dL L g/dL (13.7-17.5) Hct 26.5 % L % (40.0-51.0) MCV 93.3 fL fL (81.5-99.8) MCH 32.4 pg pg (27.9-34.1) MCHC 34.7 g/dL g/dL (32.4-36.7) RDW 13.8 % % (11.5-15.2) Plt Count 177 10^3/uL 10^3/uL (150-400) MPV 10.1 fL fL (8.7-11.7) Neut % (Auto) 93.7 % H % (39.3-74.2) Lymph % (Auto) 4.2 % L % (15.0-45.0) [place] % (Auto) 1.4 % L % (4.5-13.0) Eos % (Auto) 0.0 % L % (0.6-7.6) Baso % (Auto) 0.0 % L % (0.3-1.7) Nucleat RBC Rel Count 0.0 % % (0.0-0.2) Absolute Neuts (auto) 5.29 10^3/uL 10^3/uL (1.70-6.50) Absolute Lymphs (auto) 0.24 10^3/uL L 10^3/uL (1.00-3.00) Absolute Monos (auto) 0.08 10^3/uL L 10^3/uL (0.30-0.80) Absolute Eos (auto) 0.00 10^3/uL L 10^3/uL (0.03-0.40) Absolute Basos (auto) 0.00 10^3/uL L 10^3/uL (0.02-0.10) Absolute Nucleated RBC 0.00 10^3/uL 10^3/uL (0-0.01) Immature Gran % 0.7 % % (0.0-1.1) Immature Gran # 0.04 10^3/uL 10^3/uL (0.00-0.10) D-Dimer Pending Sodium Pending Potassium Pending Chloride Pending Carbon Dioxide Pending Anion Gap Pending BUN Pending Creatinine Pending Estimated GFR Pending Glucose Pending Calcium Pending Troponin I Pending NT-Pro-B Natriuret Pep Pending General Time Seen by Provider: 11/11/17 21:15 Initial Vital Signs: Initial Vital Signs Temperature (C) 36.4 C 11/11/17 21:08 Heart Rate 95 11/11/17 21:08 Respiratory Rate 16 11/11/17 21:08 Blood Pressure 150/89 H 11/11/17 21:08 O2 Sat (%) 97 11/11/17 21:08 O2 Delivery Mode Nasal Cannula O2 (L/minute) 2 Allergies/Adverse Reactions: LUIS M Inhibitors [Luis M Inhibitors] Allergy (Severe, Verified 11/11/17 21:12) Lip swelling Home Medications: Medication Instructions Recorded Calcitriol [Calcitriol (*)] 0.5 mcg PO MWF 04/01/17 Pantoprazole Sodium [Protonix 40mg 40 mg PO DAILY 04/01/17 (*)] Sevelamer Carbonate [Renvela] 800 mg PO BIDMEAL 04/01/17 Tamsulosin HCl 0.4 mg PO DAILY 04/01/17 traMADol [Ultram 50 mg (*)] 50 mg PO DAILY 04/01/17 Cholecalciferol Vit D3 [Vitamin D3 1,000 units PO DAILY 09/24/17 (*)] Acyclovir [Zovirax 200 mg (*)] 200 mg PO DAILY 11/12/17 Cyclophosphamide 50 mg PO DAILY 11/12/17 Dexamethasone 20 mg PO TH 11/12/17 Gabapentin [Neurontin 300 MG (*)] 600 mg PO HS 11/12/17 LORazepam [Ativan (*)] 0.5 mg PO BID PRN 11/12/17 Metoprolol Tartrate [Lopressor 25 25 mg PO BID 11/12/17 mg (*)] oxyCODONE IR [Oxycodone Ir (*)] 5 mg PO Q8HRS PRN 11/12/17 Departure - Departure Disposition: [facility] Inpatient Acute Clinical Impression: Chest pain Qualifiers: Chest pain type: unspecified Qualified Code(s): R07.9 - Chest pain, unspecified Congestive heart failure Qualifiers: Congestive heart failure type: systolic Congestive heart failure chronicity: acute on chronic Qualified Code(s): I50.23 - Acute on chronic systolic ( congestive) heart failure Condition: Fair Report Scribed for: Consuelo Duncan Report Scribed by: Maren Casillas Date of Report: 11/11/17 Time of Report: 21:42 Physician Review and Approval Statement: Portions of this note were transcribed by a medical affairs manager. I personally performed a history, physical exam, medical decision making, and confirmed accuracy of information the transcribed note.
[2017-11-11 21:42] LABS: PLATELET COUNT 177 10^3/uL (150-400)
[2017-11-11] MEDS ORDERED: ONDANSETRON 4 MG/2 ML VIAL IVP PRN (22:39)
[2017-11-11] MEDS ORDERED: ONDANSETRON DISINTEGRATING 4 MG TAB PO PRN (22:39)
--- NOTE | 2017-11-11 23:56 | PDGENHP ---
History and Physical - Chief Complaint Chest pain - History of Present Illness 72 yo M w/ hx of amyloidosis, ESRD, and HTN presents after episode of chest pain. Patient had chemotherapy treatment today and afterwards developed central chest pain with radiation to his back. He also felt tingling in both of his arms. The pain lasted less than an hour and now has completely resolved. He states this occurred after his last chemotherapy session as well. History Information - Allergies/Home Medication List Allergies/Adverse Reactions: LUIS M Inhibitors [Luis M Inhibitors] Allergy (Severe, Verified 11/11/17 21:12) Lip swelling Home Medications: Calcitriol [Calcitriol (*)] 0.25 mcg PO DAILY 04/01/17 [Last Taken 09/24/17] Gabapentin 600 mg PO HS 04/01/17 [Last Taken 09/23/17] Metoprolol Tartrate 25 mg PO BID 04/01/17 [Last Taken 09/24/17] Pantoprazole Sodium [Protonix 40mg (*)] 40 mg PO DAILY 04/01/17 [Last Taken ] Sevelamer Carbonate [Renvela] 800 mg PO BIDMEAL 04/01/17 [Last Taken 09/23/17] Tamsulosin HCl 0.4 mg PO DAILY 04/01/17 [Last Taken 09/24/17] traMADol [Ultram 50 mg (*)] 50 mg PO DAILY 04/01/17 [Last Taken 09/23/17] Cholecalciferol Vit D3 [Vitamin D3 (*)] 1,000 units PO DAILY 09/24/17 [Last Taken 09/24/17] Ciprofloxacin [Cipro] 500 mg PO HS 09/24/17 [Last Taken 09/23/17] Mupirocin 2% [Bactroban 2% Oint (RX)] 1 duy TP HS PRN 09/24/17 [Last Taken Unknown] Polyethylene Glycol 3350 [Miralax 17 gm (*)] 17 gm PO DAILY PRN 09/24/17 [Last Taken 09/23/17] I have personally reviewed and updated: family history, medical history - Past Medical History ESRD, hypertension Additional medical history: Amyloidosis - Surgical History Additional surgical history: PD catheter - Family History Additional family history: Asked, denies - Social History Smoking Status: Never smoked Review of Systems Review of Systems: ROS: 10pt was reviewed & negative except for what was stated in HPI & below Physical Exam Physical Exam: Temp Pulse Resp BP Pulse Ox 36.4 C 84 16 148/97 H 90 L 11/11/17 21:08 11/11/17 23:44 11/11/17 23:44 11/11/17 23:44 11/11/17 23:44 Constitutional: no apparent distress, not in pain Eyes: PERRL, EOMI Ears, Nose, Mouth, Throat: moist mucous membranes, no oral mucosal ulcers Cardiovascular: regular rate and rhythym, systolic murmur Respiratory: no respiratory distress, clear to auscultation Gastrointestinal: normoactive bowel sounds, soft, non-tender abdomen Genitourinary: other (inguinal lymphadenopathy+) Skin: warm, normal color Neurologic: AAOx3, CN II-XII Intact Psychiatric: interacting appropriately, not anxious Lab Data & Imaging Review 11/11/17 21:30 11/11/17 21:30 WBC 5.65 10^3/uL (3.80-9.50) 11/11/17 21:30 RBC 2.84 10^6/uL (4.40-6.38) L 11/11/17 21:30 Hgb 9.2 g/dL (13.7-17.5) L 11/11/17 21:30 Hct 26.5 % (40.0-51.0) L 11/11/17 21:30 MCV 93.3 fL (81.5-99.8) 11/11/17 21:30 MCH 32.4 pg (27.9-34.1) 11/11/17 21:30 MCHC 34.7 g/dL (32.4-36.7) 11/11/17 21:30 RDW 13.8 % (11.5-15.2) 11/11/17 21:30 Plt Count 177 10^3/uL (150-400) 11/11/17 21:30 MPV 10.1 fL (8.7-11.7) 11/11/17 21:30 Neut % (Auto) 93.7 % (39.3-74.2) H 11/11/17 21:30 Lymph % (Auto) 4.2 % (15.0-45.0) L 11/11/17 21:30 [place] % (Auto) 1.4 % (4.5-13.0) L 11/11/17 21:30 Eos % (Auto) 0.0 % (0.6-7.6) L 11/11/17 21:30 Baso % (Auto) 0.0 % (0.3-1.7) L 11/11/17 21:30 Nucleat RBC Rel Count 0.0 % (0.0-0.2) 11/11/17 21:30 Absolute Neuts (auto) 5.29 10^3/uL (1.70-6.50) 11/11/17 21:30 Absolute Lymphs (auto) 0.24 10^3/uL (1.00-3.00) L 11/11/17 21:30 Absolute Monos (auto) 0.08 10^3/uL (0.30-0.80) L 11/11/17 21:30 Absolute Eos (auto) 0.00 10^3/uL (0.03-0.40) L 11/11/17 21:30 Absolute Basos (auto) 0.00 10^3/uL (0.02-0.10) L 11/11/17 21:30 Absolute Nucleated RBC 0.00 10^3/uL (0-0.01) 11/11/17 21:30 Immature Gran % 0.7 % (0.0-1.1) 11/11/17 21:30 Immature Gran # 0.04 10^3/uL (0.00-0.10) 11/11/17 21:30 D-Dimer 2.77 ug/mLFEU (0.00-0.50) H 11/11/17 21:30 Sodium 127 mEq/L (135-145) L 11/11/17 21:30 Potassium 3.1 mEq/L (3.5-5.2) L 11/11/17 21:30 Chloride 86 mEq/L (97-110) L 11/11/17 21:30 Carbon Dioxide 25 mEq/l (22-31) 11/11/17 21:30 Anion Gap 16 mEq/L (8-16) 11/11/17 21:30 BUN 49 mg/dL (7-23) H 11/11/17 21:30 Creatinine 11.2 mg/dL (0.7-1.3) H* 11/11/17 21:30 Estimated GFR 5 11/11/17 21:30 Glucose 158 mg/dL (70-100) H 11/11/17 21:30 Calcium 9.1 mg/dL (8.5-10.4) 11/11/17 21:30 Troponin I 0.103 ng/mL (0.000-0.034) H 11/11/17 21:30 NT-Pro-B Natriuret Pep 85626 pg/mL (0-125) H 11/11/17 21:30 Imaging Review: Imaging Impressions Chest X-Ray 11/11/17 21:17 Impression: Enlarged cardiac silhouette and interstitial pulmonary edema suggestive of CHF/ fluid overload. Assessment & Plan Assessment: 72 yo M w/ hx of amyloidosis, ESRD, and HTN presents after episode of chest pain following chemotherapy. Plan: 1. Chest pain - Occurred after chemotherapy, which has happened before. He does have a mildly elevated Cr at 0.1 but this is in the setting of ESRD. Pain now resolved. D-dimer elevated but this is also in the setting of malignancy. B/ l DVT U/S negative. - Admit for observation - Monitor on telemetry, trend cardiac enzymes - If troponin remains stable, noting temporal relation to chemotherapy and repeated occurrences, likely ok to follow up as outpatient 2. ESRD - Has been undergoing PD for about 1 year. 3. Mild volume overload - Elevated BNP, CHAS, pulmonary edema. Likely 2/2 ESRD, may need to change dialysis strategy to address this. 4. HTN - takes metoprolol as outpatient 5. Amyloid - Undergoing chemotherapy with known cardiac involvement. Diet - Renal Code - Full Ppx- SQH Dispo - Admit to PCU under observation status
[2017-11-12] MEDS: ACETAMINOPHEN 325 MG TAB PO PRN (02:49)
[2017-11-12 04:27] LABS: PLATELET COUNT 161 10^3/uL (150-400)
[2017-11-12] MEDS: HEPARIN 5,000 UNIT/0.5 ML SYR SC SCH ×3 (06:45→21:07)
[2017-11-12] MEDS ORDERED: ENOXAPARIN 40 MG/0.4 ML SYR SC SCH (09:00)
--- NOTE | 2017-11-12 10:39 | SOAPPROG ---
DA Progress Note Assessment/Plan: Assessment: See dictation; Alessandro is a wonderful gentleman with a very bad disease. He is on PD at home using the cycler; Rx 16,800, 10hrs, 6 cycles, Fills 2800. He is very compliant, but at times does not adjust has regimen for his weight changes. He recently went through a period where he was not eating as well, and he became volume deplete. He is now eating better, and he is about 10 pounds above his dry weight. He does not have much help at home. It would be best if we could get him off of his oxygen before DC. We will keep him in the hospital today, and perform some manual exchanges. We will then put him on the cycler this pm with all 2.5% (he has been using a mixture of 1.5 and 2.5% at home). The chest pain he describes as occurring yesterday is different than his anginal pain, and he only gets it when he takes his chemo. I've discussed with Dr. Quiñones. Plan: 11/12/17 10:34 Objective: Vital Signs Temp Pulse Resp BP Pulse Ox 36.5 C 79 12 140/82 H 97 11/12/17 06:54 11/12/17 06:54 11/12/17 06:54 11/12/17 06:54 11/12/17 06:54 Laboratory Results 11/12/17 04:05 11/12/17 04:05 11/11/17 11/12/17 11/13/17 05:59 05:59 05:59 Output Total 1 75 Balance -1 -75 ICD10 Worksheet Patient Problems: Problems Problem Status Onset Headache Active Chest pain Acute Hyperkalemia Acute Renal failure Acute Syncope Acute
[2017-11-12] MEDS ORDERED: POTASSIUM CL 20 MEQ TAB PO ONE ×2 (10:52→14:45)
[2017-11-12] MEDS ORDERED: LORazepam 0.5 MG TAB PO PRN (10:54)
[2017-11-12] MEDS ORDERED: NON-FORMULARY NEW DRUG (Sevelamer Carbonate [Renvela] 800 MG) PO SCH (10:55)
[2017-11-12] MEDS ORDERED: oxyCODONE IR 5 MG TAB PO PRN (10:55)
[2017-11-12] MEDS ORDERED: EPOETIN ALFA 10,000 UNIT/ML VIAL SC SCH (11:00)
[2017-11-12] MEDS ORDERED: [UNRECOGNIZED DRUG - OTHER] IP ONE ×2 (12:15→14:00)
[2017-11-12] MEDS ORDERED: SENNOSIDES/DOCUSATE SODIUM TAB PO PRN (12:18)
--- NOTE | 2017-11-12 14:35 | ASMTCMCOM ---
CM Note CM Note Notes: 11/12/2017 Case Management Note Reviewed chart. There are no case management d/c needs identified d/t pt age, marital status and activity levels prior to admission. There are no PT or OT evals ordered at this time. Case Management d/c poc: home independent with follow up as directed. Case Management available if needs change. Date Signed: 11/12/2017 02:34 PM Electronically Signed By:Michaela Beavers RN
[2017-11-12] MEDS: ACYCLOVIR 200 MG CAP PO SCH (15:10)
[2017-11-12] MEDS: TAMSULOSIN HCL 0.4 MG CAP PO SCH (15:10)
[2017-11-12] MEDS: CHOLECALCIFEROL VIT D3 1,000 UNITS TAB PO SCH (15:10)
[2017-11-12] MEDS: METOPROLOL TARTRATE 25 MG TAB PO SCH ×2 (15:11→20:58)
[2017-11-12] MEDS: PANTOPRAZOLE SODIUM 40 MG TAB PO SCH (15:12)
[2017-11-12] MEDS: CYCLOPHOSPHAMIDE 50 MG CAP PO SCH (15:14)
--- NOTE | 2017-11-12 15:31 | GCON ---
[f rep st] CONSULTATION NEPHROLOGY CONSULTATION. DATE OF CONSULTATION: 11/12/2017 REASON FOR CONSULTATION: Volume overload, ESRD, cardiac amyloidosis. HISTORY OF PRESENT ILLNESS: The patient is a wonderfully pleasant, 72-year-old male with a past medi arya history significant for multiple difficult problems, primarily related to B cell lymphoma, AL abby loidosis, and end-stage renal disease. The patient is my outpatient and I know him well. 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 At that time, he did have an increase in his creatinine to the mid 1s and he did have a paraprotein measurable on his serum immunoelectrop horesis. He did not have proteinuria. He underwent treatment and was on and off chemotherapy thro h 2012. Following that time, he has not had a measurable monoclonal spike and his B cell lymphoma capps s appeared to be in remission. The patient had progressive nonproteinuric chronic kidney disease and dialysis was initiated in 2015. Since that time, the patient began having progressively worsening angina. A cardiac cath did not s how significant epicardial coronary artery disease, but an MV O2 is quite low. He underwent an endom yocardial biopsy which did show evidence of amyloidosis. The patient is following with Dr. Quiñones. He is now undergoing CyBorD chemotherapy, which he has ju st initiated in the last several weeks. Following the efficacy of this regimen, it is difficult, as the patient does not have strong evidence of recurrence of his B cell lymphoma, does not have increas ed plasma cells, and does not have a paraprotein. His end-stage renal disease is being handled via p eritoneal dialysis. The patient has been quite compliant with this. Adjusting his volume status has been somewhat challenging. The patient does have significant diastolic dysfunction. Most recently, he has been doing quite well. The patient did present yesterday for his oral and subcutaneous chemotherapy. Following its administ ration, he felt his blood pressure increased slightly and he had a combination of chest pain, back pa in, and some bilateral arm numbness. He states that he has gotten this sensation when has taken his chemotherapy. It is different than his angina. He presented to the emergency room, where he was fou nd to be slightly hypoxemic, had pulmonary edema on his chest x-ray. The patient admits to being abo ut 10 pounds over his dry weight. Relating to his dialysis, he is a rapid transporter. His residual renal function has dropped signifi cantly. He has been using primarily 1.5 in combination with 2.5. He has not had recent cramping. H is blood pressures have been running around 130-140. We are now asked to assist in the patient's renal diagnosis and management by Dr. Fox of the [facility] service. PAST MEDICAL HISTORY: 1. AL amyloidosis. 2. 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 3. Type 2 diabetes. 4. Hypertension. 5. History of hypoaldosteronism. 6. Chronic anemia. 7. Prostate cancer. 8. Cervical spinal stenosis. 9. Gout. 10. Neuropathy. 11. History deep venous thrombosis. SURGICAL HISTORY: Includes: 1. Lymph node debulking. 2. Left knee arthroplasty. 3. Vasectomy. 4. Tonsillectomy. 5. Prostate biopsy. ALLERGIES: KAY inhibitors, which cause angioedema. FAMILY HISTORY: Noncontributory. SOCIAL HISTORY: The patient is . He lives with his son and his . He does not smoke ciga rettes. He does not drink alcohol. REVIEW OF SYSTEMS: The patient is not having fevers, chills or sweats. A 12-system review is notabl e primarily for his chest and back pain as noted above, chronic lower extremity edema, and symptoms o f neuropathy. PHYSICAL EXAM: GENERAL: At time of exam, the patient is pleasant, appropriate, and alert. He does not appear in distress. VITAL SIGNS: Temperature 36.5, pulse 79, blood pressure 140/82. HEENT: Eyes : Sclerae clear. Oropharynx clear. NECK: No lymphadenopathy or thyromegaly. LUNGS: Clear to aus cultation except for some rales in the right base. CARDIOVASCULAR: Regular rate and rhythm without gallops or rubs. ABDOMEN: Nontender. The patient's exit site looks clean. AND RECTAL: [place]. EXTREMITIES: The patient has 1 to 2+ bilateral lower extremity edema. That is his baseline. IN TEGUMENT: Generally clear. NEURO: Notable for his neuropathy. LABORATORY STUDIES: White count 7.9, hematocrit 25.4, platelet count 161, sodium 130, potassium 3.4, bicarb 27, creatinine 1.4. Troponin 0.133. IMPRESSION AND PLAN: 1. Volume overload. The patient has evidence of some volume overload with pulmonary edema and some hypoxemia. The patient is 10 pounds above his normal dry weight. The patient is a rapid transporter . We will treat him by using 2 two-hour 2.5% exchanges done manually today. We will then utilize th e cycler this evening using 2.5% exchanges. I am hopeful this will improve his oxygenation so he mendez s not need oxygen at home. I believe it will be difficult for him to handle his oxygen per nasal can nula and his PD equipment at home and he typically does this unassisted. I have reviewed this plan w ith the patient and the nursing staff. 2. Hypokalemia. We will further supplement his potassium as we will be doing additional dwells. 3. Hypertension. I expect this to improve with some volume reduction. It may be worthwhile increas ing beta blockade. 4. Amyloidosis. This is being treated by Dr. Quiñones. This is very challenging diagnosis in terms of what it has done to the patient physically, but also in determining the therapeutic index of treat ment. He does have severe diastolic dysfunction which is challenging. 5. Anemia. This has worsened since the initiation of his cyclophosphamide. We will give him additi onal dose of erythropoietin here today. Thank for allowing us to participate in this patient's care. We will continue to follow him closely with you. /[id number]/MODL
[2017-11-12] MEDS: traMADol 50 MG TAB PO SCH (15:39)
[2017-11-12] MEDS: SEVELAMER HCL 800 MG TAB PO SCH (18:36)
[2017-11-12] MEDS ORDERED: GABAPENTIN 300 MG CAP PO SCH (21:00)
--- NOTE | 2017-11-12 22:30 | HOSPPROG ---
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 It is felt he would not be able to manage O2 at home with his peritioneal dialysis. Also need ongoing correction of Low K and Low Na, PLANS: -will need to keep here overnight and perform two rounds of peritoneal dialysis today to remove fluid to try to wean him off O2; this has been ordered by Dr Phillips; change to in patient -do not feel cardiac evaluation needed unless some other changes are more suggestive of ischemia -possibly home 2/3 SUBJECTIVE: chest pain resolved within 2-3 hours after chemo, the same syndrome and timing occurred with previous two doses weak and tired no fever sxs still w some dyspnea OBJECTIVE:A VITALS: all stable without fever Card Monitor: all sinus on my review Exam:alert orineted relaxed skin warm dry + jvd lungs w some rales heart regular abd soft nontender limbs with much pitting edema which is his chronic baseline due to amyloid disease I reviewed last night's cxr images: pulmonary edema and some effusion present all labs reviewed by me today trop's minimally up but flat, appear likely chronic BNP 47,000 K and Na low Objective: Vital Signs Temp Pulse Resp BP Pulse Ox 36.3 C 74 17 121/74 H 98 11/12/17 20:13 11/12/17 20:13 11/12/17 20:13 11/12/17 20:13 11/12/17 20:13 Laboratory Results 11/12/17 04:05 11/12/17 04:05 11/11/17 11/12/17 11/13/17 06:59 06:59 06:59 Output Total 76 Balance -76 - Time Spent With Patient Time Spent with Patient: greater than 35 minutes Time Spent with Patient: Greater than 35 minutes spent on this patients care, greater than 50% of time spent counseling, educating, and coordinating care regarding the above mentioned plan. ICD10 Worksheet Patient Problems: Problems Problem Status Onset Headache Active Chest pain Acute Hyperkalemia Acute Renal failure Acute Syncope Acute
--- NOTE | 2017-11-12 23:19 | PDMN ---
Medical Necessity Medical necessity: C/M review: est. > 2 MN LOS for eval and TX of acute pulmonary edema, chest pain -side effect of chemotherapy currently resolved, requiring two rounds of peritoneal dialysis to remove fluid to try to wean patient off O2, cardiac monitoring, pulse oximetry, supplemental O2, ongoing correction of low K and low Na, comorbid ESRD on chronic peritoneal dialysis, known amyloid heart disease with chronic CHF, known history of lymphoma, on current chemotherapy and a biologic per 11/12/2017 Hospitalist progress note.
[2017-11-13] MEDS: GENTAMICIN 0.1% CREAM TP SCH ×2 (04:14→13:14)
[2017-11-13] MEDS: HEPARIN 5,000 UNIT/0.5 ML SYR SC SCH ×2 (06:24→14:48)
[2017-11-13] MEDS: CYCLOPHOSPHAMIDE 50 MG CAP PO SCH (09:11)
[2017-11-13] MEDS: TAMSULOSIN HCL 0.4 MG CAP PO SCH (09:12)
[2017-11-13] MEDS: traMADol 50 MG TAB PO SCH (09:12)
[2017-11-13] MEDS: CHOLECALCIFEROL VIT D3 1,000 UNITS TAB PO SCH (09:12)
[2017-11-13] MEDS: SEVELAMER HCL 800 MG TAB PO SCH (09:12)
[2017-11-13] MEDS: PANTOPRAZOLE SODIUM 40 MG TAB PO SCH (09:12)
[2017-11-13] MEDS: METOPROLOL TARTRATE 25 MG TAB PO SCH (09:12)
[2017-11-13] MEDS: ACYCLOVIR 200 MG CAP PO SCH (09:14)
[2017-11-13] MEDS ORDERED: POTASSIUM CL 20 MEQ TAB PO ONE (09:17)
[2017-11-13] MEDS: ACETAMINOPHEN 325 MG TAB PO PRN (11:07)
--- NOTE | 2017-11-13 11:12 | SOAPPROG ---
SOAP Progress Note Assessment/Plan: Assessment: 1. 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 His BP is lower. Once he is DC'd, we will need to assess his BP, stability, and oxygenation. He does not get much support at home. If he is off of his oxygen, and his BP is stable, he can go home. I will ask Dr. Carlin to call me to review DC plans, re patient's home dialysis RX (ie number of green and yellow bags). We are planning to order a home cycler that is web enabled to help track his status. 2. Pain This has improved 3. Anemia Pt received extra procrit dose Plan: 11/12/17 10:34 11/13/17 11:02 Subjective: Sleepy, but oriented and getting up for breakfast Objective: Vital Signs Temp Pulse Resp BP Pulse Ox 36.5 C 75 12 127/80 H 98 11/13/17 07:31 11/13/17 07:31 11/13/17 07:31 11/13/17 07:31 11/13/17 07:31 11/12/17 11/13/17 11/14/17 05:59 05:59 05:59 Intake Total 150 Balance 150 Physical Exam - Physical Exam General Appearance: no apparent distress Respiratory: crackles (dependent, L > R) Cardiac/Chest: regular rate, rhythm Extremities: pedal edema Neuro/Psych: oriented x 3 ICD10 Worksheet Patient Problems: Problems Problem Status Onset Headache Active Chest pain Acute Hyperkalemia Acute Renal failure Acute Syncope Acute
[2017-11-13 11:43] VITALS: BP 111/70; PULSE 77; RESP 16; TEMP 98.5; O2SAT 94
[2017-11-13] MEDS ORDERED: POTASSIUM CL 10 MEQ TAB PO ONE ×3 (12:00→15:30)
--- NOTE | 2017-11-14 15:40 | ASDISCHSUM ---
Discharge Information Plan Status:Home with No Needs Medically Cleared to Leave:11/12/2017 Discharge Date:11/13/2017 04:10 PM CM D/C Disposition: ADT D/C Disposition:Home, Routine, Self-Care Projected Discharge Date:11/13/2017 12:00 AM Transportation at D/C:Family Discharge Delay Reason: Follow-Up Date:11/13/2017 12:00 AM Discharge Slot: Final Diagnosis:CP, Pulm edema, ESRD Placement Information Patient Contact Information Contact Name:REMY Relationship: Address:[address] [place] Alternate Phone: State/Zip Code:[place] [address] Email: Financial Information Financial Class: Primary Plan Desc:MEDICARE OUTPATIENT Primary Plan Number:[id number] Secondary Plan Desc:SAYDAAGGIE PPO Secondary Plan Number:[id number] Assessment Information BC CM Progress Note CM Note CM Note Notes: 11/12/2017 Case Management Note Reviewed chart. There are no case management d/c needs identified d/t pt age, marital status and activity levels prior to admission. There are no PT or OT evals ordered at this time. Case Management d/c poc: home independent with follow up as directed. Case Management available if needs change. Date Signed: 11/12/2017 02:34 PM Electronically Signed By:Michaela Beavers RN Case Management Discharge Plan Note Case Management Discharge Discharge Order Complete? Answers: Yes Patient to Obtain Answers: via Family Medications Transportation Arranged Answers: Family/Friends Transport will Pick (Date 11/13/2017 12:00 AM & Time) Family Notified Answers: Yes Notes: Family to transport Discharge Comments Notes: Patient discharged. CP resolved, no discharge needs. Home with . Date Signed: 11/14/2017 03:39 PM Electronically Signed By:Karen Mari LCSW Intervention Information Intervention Type:*PATEL-Signed Date of Service:11/12/2017 02:33 PM Patient Type:Observation Staff Member:Goldie Garcia Hours: Discipline: Severity: Comment: Intervention Type:*Occurence 72 Date of Service:11/11/2017 06:41 PM Patient Type:Inpatient Staff Member:BRIAN Corbett, [place] Hours:0.25 Discipline: Severity:1 (0-1 Hours) Comment:[facility] 72 for 11/11/2017 18:41 to 11/12/2017 23:06 as patient discharged 11/13/2017 14:52 (< 2 MN LOS after patient admission status changed from obervation to inpatient)
[2017-11-15] MEDS ORDERED: CALCITRIOL 0.25 MCG CAP PO SCH (08:00)
[2017-11-18] MEDS ORDERED: DEXAMETHASONE 4 MG TAB PO SCH (10:54)
== END 2017-11-13 16:10 | disposition home or self-care (01) | DRG 291 ==
LOC: F2W 23:48 → OBSVTOIN 11-12 23:06
PROVIDERS: ADMIT Student in an Organized Health Care Education/Training Program; ATTEND Family Medicine
PROC: 3E1M39Z Irrigation of Peritoneal Cavity using Dialysate, Percutaneous Approach (ICD-10-PCS; principal; 2017-11-12)
DX: I50.33 Acute on chronic diastolic (congestive) heart failure (principal); E85.4 Organ-limited amyloidosis; I12.0 Hypertensive chronic kidney disease with stage 5 chronic kidney disease or end stage renal disease; N18.6 End stage renal disease; Z99.2 Dependence on renal dialysis; R07.9 Chest pain, unspecified; T45.1X5A Adverse effect of antineoplastic and immunosuppressive drugs, initial encounter; E87.6 Hypokalemia; E87.1 Hypo-osmolality and hyponatremia; D63.1 Anemia in chronic kidney disease; E11.9 Type 2 diabetes mellitus without complications; F32.9 Major depressive disorder, single episode, unspecified; M10.9 Gout, unspecified; Z85.72 Personal history of non-Hodgkin lymphomas; Z85.46 Personal history of malignant neoplasm of prostate; Z96.652 Presence of left artificial knee joint
CPT/HCPCS: G0378; J0885; J8530

== ENCOUNTER 2017-12-24 20:32 | Observation (INO) | payer OTHER ==
--- NOTE | 2017-12-24 20:35 | EDPHY ---
H & P Time Seen by Provider: 12/24/17 20:34 Constitutional: Initial Vital Signs Temperature (C) 36.5 C 12/24/17 20:35 Heart Rate 99 12/24/17 20:35 Respiratory Rate 20 12/24/17 20:35 Blood Pressure 133/83 H 12/24/17 20:35 O2 Sat (%) 100 12/24/17 20:35 O2 Delivery Mode Room Air Allergies/Adverse Reactions: LUIS M Inhibitors [Luis M Inhibitors] Allergy (Severe, Verified 12/24/17 20:35) Lip swelling Home Medications: Medication Instructions Recorded Calcitriol [Calcitriol (*)] 0.5 mcg PO MWF 04/01/17 Pantoprazole Sodium [Protonix 40mg 40 mg PO DAILY 04/01/17 (*)] Sevelamer Carbonate [Renvela] 800 mg PO BIDMEAL 04/01/17 Tamsulosin HCl 0.4 mg PO DAILY 04/01/17 traMADol [Ultram 50 mg (*)] 50 mg PO DAILY 04/01/17 Cholecalciferol Vit D3 [Vitamin D3 1,000 units PO DAILY 09/24/17 (*)] Acyclovir [Zovirax 200 mg (*)] 200 mg PO DAILY 11/12/17 Cyclophosphamide 50 mg PO DAILY 11/12/17 Dexamethasone 20 mg PO TH 11/12/17 Gabapentin [Neurontin 300 MG (*)] 600 mg PO HS 11/12/17 LORazepam [Ativan (*)] 0.5 mg PO BID PRN 11/12/17 Metoprolol Tartrate [Lopressor 25 25 mg PO BID 11/12/17 mg (*)] oxyCODONE IR [Oxycodone Ir (*)] 5 mg PO Q8HRS PRN 11/12/17 Medical Decision Making ED Course/Re-evaluation: CHIEF COMPLAINT: Chest pain HISTORY OF PRESENT ILLNESS: This patient is a 72 year old male with history of of amyloidosis, ESRD, and hypertension arriving via EMS for evaluation of chest pain. The patient is undergoing chemotherapy for amyloidosis under the care of Dr. Quiñones, oncologist. He was admitted 11/11/17 for similar symptoms following a chemotherapy treatment. He developed back pain and numbness in his upper extremities as well, which is consistent with his prior presentation. He has followed up with Dr. Chilel and Dr. Blois and had a negative stress test and cardiac catheterization in the past. Today, his chest pain seems more prolonged than usual. He usually takes tramadol and gabapentin for pain control but continues to experience discomfort. He has not taken his gabapentin today. No fever, difficulty breathing, vomiting, or other associated symptoms. REVIEW OF SYSTEMS: A 10 point review of systems was performed and is negative with the exception of the elements mentioned in the history of present illness. PHYSICAL EXAM: HR, BP, O2 Sat, RR. Temp noted General Appearance: Alert, appears in pain. Head: Atraumatic without scalp tenderness or obvious injury Eyes: Pupils equal, round, reactive to light and accommodation, EOMI, no trauma , no injection. Ears: Clear bilaterally, no perforation, normal landmarks Nose: Atraumatic, no rhinorrhea, clear. Throat: There is no erythema or exudates, no lesions, normal tonsils, mucus membranes moist. Neck: Supple, 2+ carotid upstroke, nontender, no lymphadenopathy. Respiratory: No retractions, no distress, no wheezes, and no accessory muscle use. Lungs are clear to auscultation bilaterally. Cardiovascular: Regular rate and rhythm, no murmurs, rubs, or gallops. Bilateral carotid, radial, dorsalis pedis, and posterior tibial pulses intact. Good capillary refill all extremities. Gastrointestinal: Abdomen is soft, nontender, non-distended. Musculoskeletal: Normal active ROM of all extremities, atraumatic. Neurological: Alert, appropriate, and interactive. The patient has normal DTRs and non-focal cranial nerves, motor, sensory, and cerebellar exam. Skin: No rashes, good turgor, no nodules on palpation. Past medical history: Amyloidosis, ESRD, and hypertension Past surgical history: Noncontributory Family history: Noncontributory Social history: . Lives in [place]. Retired. DIFFERENTIAL DIAGNOSIS: The differential diagnosis for the patient's chest pain included but was not limited to amyloidosis, myocardial ischemia, pulmonary embolus, chest wall pain , pleural inflammation, and pulmonary infectious causes. MEDICAL DECISION MAKIN72 y/o male with history of amyloidosis currently undergoing chemotherapy presents with chest pain, back pain, and upper extremity paresthesias. He appears in pain throughout my interview. Cardiac workup in the past has been negative, and the patient has been admitted in the past for similar symptoms thought to be secondary to amyloidosis and his chemotherapy treatments. Plan for chest x-ray, labs including CBC, chemistries, troponin, BNP. Of note, the patient has chronically elevated creatinine due to his end stage renal disease, shown in prior laboratory studies. Plan to admit for pain control and further observation. Plan to administer 1mg IV Dilaudid for pain relief. 20:[address] Leon, hospitalist. He accepts admission for chest pain likely secondary to amyloidosis. - Data Points Laboratory Results: Laboratory Results 12/24/17 20:35 12/24/17 12/24/17 20:35 20:35 WBC 11.01 10^3/uL H 10^3/uL (3.80-9.50) RBC 3.57 10^6/uL L 10^6/uL (4.40-6.38) Hgb 11.6 g/dL L g/dL (13.7-17.5) Hct 34.1 % L % (40.0-51.0) MCV 95.5 fL fL (81.5-99.8) MCH 32.5 pg pg (27.9-34.1) MCHC 34.0 g/dL g/dL (32.4-36.7) RDW 16.4 % H % (11.5-15.2) Plt Count 282 10^3/uL 10^3/uL (150-400) MPV 8.8 fL fL (8.7-11.7) Neut % (Auto) 82.2 % H % (39.3-74.2) Lymph % (Auto) 12.6 % L % (15.0-45.0) [place] % (Auto) 4.6 % % (4.5-13.0) Eos % (Auto) 0.0 % L % (0.6-7.6) Baso % (Auto) 0.1 % L % (0.3-1.7) Nucleat RBC Rel Count 0.0 % % (0.0-0.2) Absolute Neuts (auto) 9.04 10^3/uL H 10^3/uL (1.70-6.50) Absolute Lymphs (auto) 1.39 10^3/uL 10^3/uL (1.00-3.00) Absolute Monos (auto) 0.51 10^3/uL 10^3/uL (0.30-0.80) Absolute Eos (auto) 0.00 10^3/uL L 10^3/uL (0.03-0.40) Absolute Basos (auto) 0.01 10^3/uL L 10^3/uL (0.02-0.10) Absolute Nucleated RBC 0.00 10^3/uL 10^3/uL (0-0.01) Immature Gran % 0.5 % % (0.0-1.1) Immature Gran # 0.06 10^3/uL 10^3/uL (0.00-0.10) Sodium Pending Potassium Pending Chloride Pending Carbon Dioxide Pending Anion Gap Pending BUN Pending Creatinine Pending Estimated GFR Pending Glucose Pending Calcium Pending Troponin I Pending NT-Pro-B Natriuret Pep Pending Medications Given: Discontinued Medications Hydromorphone HCl (Dilaudid) 1 mg IVP EDNOW ONE Stop: 12/24/17 20:54 Last Admin: 12/24/17 20:57 Dose: 1 mg Departure - Departure Disposition: [facility] Inpatient Acute Clinical Impression: Chest pain Qualifiers: Chest pain type: other chest pain Qualified Code(s): R07.89 - Other chest pain Amyloidosis Qualifiers: Amyloidosis type: other amyloidosis Qualified Code(s): E85.89 - Other amyloidosis Condition: Fair Report Scribed for: Pavan Ortega Report Scribed by: Sarah Barone Date of Report: 12/24/17 Time of Report: 20:42
[2017-12-24 20:50] LABS: PLATELET COUNT 282 10^3/uL (150-400)
[2017-12-24] MEDS ORDERED: HYDROmorphONE/DILAUDID 2 MG/ML INJ IVP ONE (20:53)
[2017-12-24] MEDS ORDERED: HYDROmorphONE/DILAUDID 2 MG/ML INJ ONE (20:54)
[2017-12-24] MEDS ORDERED: ONDANSETRON DISINTEGRATING 4 MG TAB PO PRN (22:14)
[2017-12-24] MEDS ORDERED: HYDROmorphONE/DILAUDID 2 MG TAB PO PRN (22:14)
[2017-12-24] MEDS ORDERED: ONDANSETRON 4 MG/2 ML VIAL IVP PRN (22:14)
[2017-12-24] MEDS ORDERED: HYDROmorphONE/DILAUDID 2 MG/ML INJ IVP PRN (22:14)
[2017-12-24] MEDS ORDERED: ACETAMINOPHEN 325 MG TAB PO PRN (22:14)
--- NOTE | 2017-12-25 00:43 | PDGENHP ---
History and Physical - Chief Complaint Chest pain - History of Present Illness 72 yo M w/ amyloidosis, ESRD, and HTN presents with chest pain. Patient has very similar pain episodes in the short period after his chemotherapy treatments. He describes these episodes as central chest squeezing with radiation to his back and tingling in his arms. He was admitted for an identical episode last month. He usually does not worry about this since he has been worked up and the pain is thought to be due to a combination of cardiac amyloid and chemotherapy. Tonight, however, the pain lasted longer than usual so he came to the ED because he could no longer stand the pain. He is being admitted for pain control and observation. At the time of my evaluation he is comfortable after Dilaudid IV. History Information - Allergies/Home Medication List Allergies/Adverse Reactions: LUIS M Inhibitors [Luis M Inhibitors] Allergy (Severe, Verified 12/24/17 20:35) Lip swelling Home Medications: traMADol [Ultram 50 mg (*)] 50 mg PO HS 04/01/17 [Last Taken 11/11/17] Gabapentin [Neurontin 100 MG (*)] 100 mg PO HS 12/24/17 [Last Taken 12/23/17] Other Medcations Need Clarified 1 dose PO AD 12/24/17 [Last Taken Unknown] I have personally reviewed and updated: family history, medical history - Past Medical History ESRD, hypertension Additional medical history: Amyloidosis - Surgical History Additional surgical history: PD catheter - Family History Additional family history: Asked, denies - Social History Smoking Status: Never smoked Review of Systems Review of Systems: ROS: 10pt was reviewed & negative except for what was stated in HPI & below Physical Exam Physical Exam: Temp Pulse Resp BP Pulse Ox 36.4 C 87 17 140/90 H 96 12/25/17 00:24 12/25/17 00:24 12/25/17 00:24 12/25/17 00:24 12/25/17 00:24 Constitutional: no apparent distress, not in pain Eyes: PERRL, EOMI Ears, Nose, Mouth, Throat: moist mucous membranes, no oral mucosal ulcers Cardiovascular: regular rate and rhythym, systolic murmur, edema (1+ b/l CHAS) Respiratory: no respiratory distress, clear to auscultation Gastrointestinal: normoactive bowel sounds, soft, non-tender abdomen Skin: warm, normal color Musculoskeletal: full muscle strength, no muscle tenderness Neurologic: AAOx3, CN II-XII Intact Psychiatric: interacting appropriately, not anxious Lab Data & Imaging Review 12/24/17 20:35 12/24/17 20:35 WBC 11.01 10^3/uL (3.80-9.50) H 12/24/17 20:35 RBC 3.57 10^6/uL (4.40-6.38) L 12/24/17 20:35 Hgb 11.6 g/dL (13.7-17.5) L 12/24/17 20:35 Hct 34.1 % (40.0-51.0) L 12/24/17 20:35 MCV 95.5 fL (81.5-99.8) 12/24/17 20:35 MCH 32.5 pg (27.9-34.1) 12/24/17 20:35 MCHC 34.0 g/dL (32.4-36.7) 12/24/17 20:35 RDW 16.4 % (11.5-15.2) H 12/24/17 20:35 Plt Count 282 10^3/uL (150-400) 12/24/17 20:35 MPV 8.8 fL (8.7-11.7) 12/24/17 20:35 Neut % (Auto) 82.2 % (39.3-74.2) H 12/24/17 20:35 Lymph % (Auto) 12.6 % (15.0-45.0) L 12/24/17 20:35 [place] % (Auto) 4.6 % (4.5-13.0) 12/24/17 20:35 Eos % (Auto) 0.0 % (0.6-7.6) L 12/24/17 20:35 Baso % (Auto) 0.1 % (0.3-1.7) L 12/24/17 20:35 Nucleat RBC Rel Count 0.0 % (0.0-0.2) 12/24/17 20:35 Absolute Neuts (auto) 9.04 10^3/uL (1.70-6.50) H 12/24/17 20:35 Absolute Lymphs (auto) 1.39 10^3/uL (1.00-3.00) 12/24/17 20:35 Absolute Monos (auto) 0.51 10^3/uL (0.30-0.80) 12/24/17 20:35 Absolute Eos (auto) 0.00 10^3/uL (0.03-0.40) L 12/24/17 20:35 Absolute Basos (auto) 0.01 10^3/uL (0.02-0.10) L 12/24/17 20:35 Absolute Nucleated RBC 0.00 10^3/uL (0-0.01) 12/24/17 20:35 Immature Gran % 0.5 % (0.0-1.1) 12/24/17 20:35 Immature Gran # 0.06 10^3/uL (0.00-0.10) 12/24/17 20:35 Sodium 135 mEq/L (135-145) 12/24/17 20:35 Potassium 3.4 mEq/L (3.5-5.2) L 12/24/17 20:35 Chloride 90 mEq/L (97-110) L 12/24/17 20:35 Carbon Dioxide 23 mEq/l (22-31) D 12/24/17 20:35 Anion Gap 22 mEq/L (8-16) H 12/24/17 20:35 BUN 54 mg/dL (7-23) H 12/24/17 20:35 Creatinine 10.7 mg/dL (0.7-1.3) H* 12/24/17 20:35 Estimated GFR 5 12/24/17 20:35 Glucose 141 mg/dL (70-100) H 12/24/17 20:35 Calcium 10.6 mg/dL (8.5-10.4) H D 12/24/17 20:35 Troponin I 0.027 ng/mL (0.000-0.034) 12/24/17 20:35 NT-Pro-B Natriuret Pep 43309 pg/mL (0-125) H 12/24/17 20:35 Imaging Review: Imaging Impressions Chest X-Ray 12/24/17 20:45 Impression: Interval improvement in CHF.. Assessment & Plan Assessment: 72 yo M w/ amyloidosis, HTN, and ESRD presents with pain episode after chemotherapy. Plan: 1. Chest pain - Typical pain episode after chemotherapy for this patient. Ischemic etiologies have been evaluated, most recently with a non-obstructive LHC on 03/27, and etiology has been presumed to be cardiac amyloidosis plus chemotherapy. Pain episode lasted longer than usual today and patient came to ED as he was unable to tolerate pain. - Admit for observation - Dilaudid PO, IV for pain control 2. Amyloidosis - With cardiac involvement; currently undergoing chemotherapy. 3. ESRD - Treated with peritoneal dialysis; laboratory work-up consistent with such. 4. HTN - Continue home meds. Diet - Renal Code - Full Ppx - SQH Dispo - Admit under observation status
[2017-12-25 04:24] LABS: PLATELET COUNT 205 10^3/uL (150-400)
[2017-12-25] MEDS: HEPARIN 5,000 UNIT/0.5 ML SYR SC SCH ×2 (05:22→14:29)
[2017-12-25 08:06] VITALS: O2SAT 95
[2017-12-25 11:33] VITALS: BP 124/76; PULSE 74; RESP 12; TEMP 97.8
[2017-12-25] MEDS ORDERED: LORazepam 0.5 MG TAB PO PRN (11:58)
[2017-12-25] MEDS ORDERED: traMADol 50 MG TAB PO PRN (11:58)
[2017-12-25] MEDS ORDERED: ZOLPIDEM TARTRATE 5 MG TAB PO PRN (11:58)
[2017-12-25] MEDS ORDERED: oxyCODONE IR 5 MG TAB PO PRN (11:58)
[2017-12-25] MEDS ORDERED: ONDANSETRON DISINTEGRATING 4 MG TAB PO PRN (11:58)
[2017-12-25] MEDS ORDERED: METOPROLOL TARTRATE 25 MG TAB PO SCH (12:00)
[2017-12-25] MEDS ORDERED: LOSARTAN POTASSIUM 25 MG TAB PO SCH (12:00)
[2017-12-25] MEDS ORDERED: FINASTERIDE 5 MG TAB PO SCH (12:00)
[2017-12-25] MEDS ORDERED: CHOLECALCIFEROL VIT D3 1,000 UNITS TAB PO SCH (12:00)
[2017-12-25] MEDS ORDERED: PANTOPRAZOLE SODIUM 40 MG TAB PO SCH (12:00)
[2017-12-25] MEDS ORDERED: SODIUM BICARBONATE 650 MG TAB PO SCH (12:00)
[2017-12-25] MEDS ORDERED: TAMSULOSIN HCL 0.4 MG CAP PO SCH (12:00)
[2017-12-25] MEDS ORDERED: FUROSEMIDE 20 MG TAB PO SCH (12:00)
[2017-12-25] MEDS ORDERED: ACYCLOVIR 200 MG CAP PO SCH (12:00)
--- NOTE | 2017-12-25 15:20 | ASMTCMCOM ---
CM Note CM Note Notes: Discussed pt in rounds today. Pt lives at home w/; he manages his Peritoneal dialysis at home and follows up out patient. Met w/pt and , Mildred. No CM DC needs. Date Signed: 12/25/2017 03:19 PM Electronically Signed By:Dai Connolly RN
--- NOTE | 2017-12-25 17:17 | PDDCSUM ---
Discharge Summary Discharge Summary: DISCHARGE SUMMARY FOLLOW-UP ITEMS: Reassess pain management DATE OF ADMISSION: 12/24/2017 DATE OF DISCHARGE: 12/25/2017 DISCHARGE DIAGNOSES: 1. Acute chest pain 2. Chronic amyloidosis 3. End-stage renal disease 4. Chronic diastolic congestive heart failure 5. Anemia of end-stage renal disease 6. Abnormal troponin level CONSULTATIONS: None PROCEDURES / IMAGING: Chest x-ray demonstrating some chronic interstitial markings CHIEF COMPLAINT: Acute chest pain SUBJECTIVE: Patient is feeling well at time of discharge without any pain PHYSICAL EXAM ON DISCHARGE: Systolic blood pressure is 100-120, heart rate 80, afebrile overnight, satting well on room air, alert awake oriented x3, lungs are clear to auscultation bilaterally, bilateral lower extremities have trace edema, heart rhythm is regular LABS ON DISCHARGE: Troponin 0.08, BNP 00188, creatinine 10.5, potassium 3.6, hemoglobin 8.9 HOSPITAL COURSE BY PROBLEM: The patient presented with acute chest pain most likely atypical and secondary to amyloidosis in the context of receiving ongoing chemotherapy. I suspect that the cause of the patient's pain is actual tissue breakdown resulting from effective treatment of his amyloidosis, and is more localized in the central chest region as he has cardiac amyloidosis. The patient was ruled out for acute coronary syndrome with no ischemic changes on EKG, and only a minimally elevated troponin level which was most likely secondary to end-stage renal disease. The patient's chart was fully evaluated at demonstrated a normal left heart catheterization in March of 2017, followed by and normal V/Q scan in May of 2017, followed by reassessment for DVT on 11/11/2017 demonstrating normal ultrasounds. The patient's CXR did not show overt acute CHF, and he was saturating well on room air. His peritoneal dialysis was reportedly going as planned. Given that it is unlikely that the patient has obstructive coronary disease or pulmonary embolism in the setting of these studies, and the patient' s chest discomfort is very temporarily associated with his chemotherapy treatments, I recommended supportive care with as needed oral Dilaudid, only to be taken on the day or 2 days after treatment which provoked pain. I have also advised the patient to utilize a proton pump inhibitor given his high risk of esophageal reflux, he reports he will continue to do so. I recommend the patient follow up with his primary oncologist and continue to reassess pain management. I have also advised the patient avoid using concomitant opiates, and only use the Dilaudid as needed for this singular pain. DISCHARGE MEDICATIONS: Please see official discharge medication reconciliation sheet in chart , continue all home medications, with the addition of Dilaudid 2-4 mg as needed once weekly for pain management. DISCHARGE INSTRUCTIONS: Please follow up with Dr. Angel Quiñones as scheduled.
[2017-12-25] MEDS ORDERED: NON-FORMULARY NEW DRUG (Sevelamer Carbonate [Renvela] 800 MG) PO SCH (18:00)
[2017-12-25] MEDS ORDERED: SEVELAMER HCL 800 MG TAB PO SCH (18:00)
[2017-12-25] MEDS ORDERED: GABAPENTIN 100 MG CAP PO SCH (21:00)
[2017-12-27] MEDS ORDERED: CALCITRIOL 0.25 MCG CAP PO SCH (09:00)
--- NOTE | 2017-12-27 12:31 | CPEKG ---
Heart Rate: 96 RR Interval: 625 P-R Interval: 188 QRSD Interval: 98 QT Interval: 392 QTC Interval: 496 P [place]: 101 QRS [place]: -10 T Wave [place]: 14 EKG Severity - BORDERLINE ECG - EKG Impression: SINUS RHYTHM EKG Impression: BORDERLINE PROLONGED QT INTERVAL Electronically Signed By: Angel Calloway 27-Dec-2017 15:42:07
== END 2017-12-25 15:45 | disposition home or self-care (01) ==
LOC: EDUNIT# → F2W 22:27
PROVIDERS: ADMIT Student in an Organized Health Care Education/Training Program; ATTEND Internal Medicine
DX: R07.89 Other chest pain (principal); E85.4 Organ-limited amyloidosis; I43 Cardiomyopathy in diseases classified elsewhere; N18.6 End stage renal disease; I50.32 Chronic diastolic (congestive) heart failure; D63.1 Anemia in chronic kidney disease; R78.89 Finding of other specified substances, not normally found in blood; Z99.2 Dependence on renal dialysis; I12.0 Hypertensive chronic kidney disease with stage 5 chronic kidney disease or end stage renal disease
CPT/HCPCS: 71046; 93005; 96374; 99285; G0378; J1170; J1644

== ENCOUNTER 2018-01-21 12:34 | Inpatient (IN) | payer OTHER ==
--- NOTE | 2018-01-21 12:54 | CPEKG ---
Heart Rate: 106 RR Interval: 566 P-R Interval: 172 QRSD Interval: 106 QT Interval: 348 QTC Interval: 463 P [place]: -69 QRS [place]: 16 T Wave [place]: 71 EKG Severity - OTHERWISE NORMAL ECG - EKG Impression: SINUS OR ECTOPIC ATRIAL TACHYCARDIA Electronically Signed By: Isaac Tony 21-Jan-2018 20:47:20
[2018-01-21] MEDS ORDERED: NS 500 ML IV ONE (13:02)
[2018-01-21] MEDS ORDERED: HYDROmorphONE/DILAUDID 2 MG/ML INJ IVP ONE (13:04)
[2018-01-21 13:10] LABS: PLATELET COUNT 267 10^3/uL (150-400)
[2018-01-21] MEDS ORDERED: FAMOTIDINE 20 MG/NACL 50 ML IV ONE (13:12)
[2018-01-21 13:18] LABS: INR 1.02 (0.83-1.16); PROTIME(PATIENT) 13.6 SEC (12.0-15.0)
--- NOTE | 2018-01-21 13:20 | EDPHY ---
H & P Time Seen by Provider: 01/21/18 12:58 HPI/ROS: HPI Chest pain. 72-year-old male by private vehicle with his grandson. This patient has a history of amyloidosis. He is currently undergoing chemotherapy under the care of oncologist Dr. Quiñones. He has had episodes of substernal mid chest pain described as sharp and burning. He has been seen in the emergency department and admitted to this hospital several times in the recent past for this exact complaint. He has had extensive workup which has been unremarkable. He does have a chronically low elevated troponin thought to be secondary to his renal insufficiency. He has been prescribed Dilaudid to take home as well as morphine to treat this pain. He had a normal left heart catheterization March of 2017. He states that this morning at 10:00 a.m. His typical chest pain came on. He took 40 mg of morphine orally which had no affect. He states this is the exact same pain he has been dealing with for some time now. He feels he needs to belch and it will help relieve his pain. He does have associated shortness of breath with the pain. ROS: Constitutional: No fever, no chills. No weakness. Eyes: No discharge. No changes in vision. ENT: No sore throat. No nasal congestion or rhinorrhea. Respiratory: No cough. As above. Cardiac: As above, no palpitations. Gastrointestinal: No abdominal pain, no vomiting, no diarrhea. Genitourinary: No hematuria. No dysuria or increased frequency with urination. Musculoskeletal: No back pain. No neck pain. No myalgias or arthralgias. Skin: No rashes. Neurological: No headache. No focal weakness or altered sensation. Past medical history: End-stage renal disease, hypertension, amyloidosis, chronic diastolic heart failure, chronic anemia, chronically elevated troponin. Normal left heart catheterization March of 2017, normal V/Q scan May of 2017 , reassessment for DVT in the lower extremities November 2017 negative. Social history: Nonsmoker. No alcohol. Here with grandson. Physical Exam: General Appearance: Alert, he appears uncomfortable. This patient is responding to questions appropriately and in full sentences. This patient appears well-hydrated and well-nourished. Eyes: Pupils equal and round no pallor or injection. No lid edema, erythema or injection. Respiratory: There are no retractions, lungs are clear to auscultation with good air movement bilaterally. Mild tachypnea. Cardiovascular: Regular rate and rhythm. Tachycardia. No murmur. Gastrointestinal: Abdomen is soft and nontender, no masses, bowel sounds normal. No focal tenderness at McBurney's point. No Potts sign. Neurological: Motor sensory function is grossly intact. Cranial nerves are normal. Gait is normal. Skin: Warm and dry, no rashes. Musculoskeletal: Neck is supple and nontender. Extremities are symmetrical. All joints range without pain or impingement. Psychiatric: No agitation. No depression. Database: EKG: EKG time is 12:52 p.m.; EKG shows a narrow complex sinus tachycardia with a ventricular rate of 106. The VT, QRS, QT intervals are within normal limits. There are no ST-T wave changes indicative of ischemic or injury pattern. No evidence of right heart strain. Interpreted by me. Imaging: Chest x-ray AP portable; the cardiac mediastinal silhouette is unremarkable. Mild cardiomegaly. No evidence of infiltrate or pneumothorax. No acute cardiopulmonary disease process noted. Interpreted by me. Procedures: Emergency department course: Vital signs reviewed. Mildly tachypneic at 22. Tachycardic at 1:06 a.m.. Afebrile. Blood pressure normal. IV placed. Patient placed on a loop puller. EKG obtained and reviewed by myself. Patient started on IV normal saline with 500 cc to be given over the next hour. He will be given 1 mg of IV hydromorphone and 20 mg of IV Pepcid. Standard cardiac workup ordered. 2:40 p.m., patient re-evaluated. Resting comfortably at this time. His chest pain has resolved. I discussed the results of his blood work with him. I explained that his troponin was elevated more than his usual baseline. I am concerned about a possible myocarditis. At this time I feel he should be admitted. Echocardiogram has been ordered to evaluate for possible pericardial effusion. Hospitalist paged. 3:20 p.m., spoke with hospitalist, Dr. Zendejas, she accepts this patient for admission. Patient admitted in stable condition to telemetry. Differential Diagnosis: The differential diagnosis on this patient includes but is not limited to chest pain associated with chemotherapy. Acute coronary syndrome, aortic dissection, myocarditis, pericarditis, pulmonary embolism, pneumonia unlikely. This represents a partial list of diagnoses considered. These considerations are based on history, physical exam, past history, reassessment and diagnostic testing. Smoking Status: Never smoked Constitutional: Initial Vital Signs Temperature (C) 37.0 C 01/21/18 12:37 Heart Rate 104 H 01/21/18 12:37 Respiratory Rate 22 H 01/21/18 12:37 Blood Pressure 111/77 01/21/18 12:37 O2 Sat (%) 100 01/21/18 12:37 O2 Delivery Mode Room Air Allergies/Adverse Reactions: LUIS M Inhibitors [Luis M Inhibitors] Allergy (Severe, Verified 12/24/17 20:35) Lip swelling Home Medications: Medication Instructions Recorded traMADol [Ultram 50 mg (*)] 50 mg PO Q4 PRN 04/01/17 Gabapentin [Neurontin 100 MG (*)] 100 mg PO HS 12/24/17 Acetaminophen [Tylenol 325mg (*)] 650 mg PO Q4HRS PRN tab 12/25/17 Acyclovir [Zovirax 200 mg (*)] 200 mg PO BID 12/25/17 Bortezomib [Velcade IV] 0 mg IV TH 12/25/17 Calcitriol [Calcitriol (*)] 0.25 mcg PO MOWEFR@09 12/25/17 Cholecalciferol Vit D3 [Vitamin D3 1,000 units PO DAILY 12/25/17 (*)] Cyclophosphamide 450 mg PO TH 12/25/17 Dexamethasone [Decadron 4 MG (*)] 20 mg PO TH PRN 12/25/17 Finasteride [Proscar 5 MG (*)] 5 mg PO DAILY 12/25/17 Furosemide [Lasix 20 MG (*)] 20 mg PO DAILY 12/25/17 HYDROmorphone HCL [Dilaudid 2 mg 2 - 4 mg PO Q4HRS PRN #30 tab 12/25/17 (*)] LORazepam [Ativan (*)] 0.5 mg PO Q6 PRN 12/25/17 Losartan Potassium [Cozaar 25 mg 25 mg PO DAILY 12/25/17 (*)] Metoprolol Tartrate [Lopressor 25 25 mg PO BID 12/25/17 mg (*)] Ondansetron Odt [Zofran Odt 4 mg 4 mg PO Q8 PRN 12/25/17 (*)] Pantoprazole Sodium [Protonix 40mg 40 mg PO DAILY 12/25/17 (*)] Potassium Cl [Klor-Con 10 meq (RX)] 10 meq PO DAILY 12/25/17 Sevelamer Carbonate [Renvela] 800 mg PO BIDMEAL 12/25/17 Sodium Bicarbonate [Na Bicarb] 1,300 mg PO BID 12/25/17 Tamsulosin HCl [Flomax 0.4 MG (*)] 0.4 mg PO DAILY 12/25/17 Zolpidem Tartrate [Ambien 5MG (*)] 5 mg PO HS PRN 12/25/17 Medical Decision Making - Diagnostics Imaging Results: Imaging Impressions Chest X-Ray 01/21/18 13:03 Impression: Mild cardiomegaly, with no evidence of congestive heart failure. If there is progression of the patient's symptoms, consider short-term repeat chest radiography to include PA and lateral upright views in the Department. - Data Points Laboratory Results: Laboratory Results 01/21/18 12:58 01/21/18 12:58 01/21/18 01/21/18 01/21/18 12:58 12:58 12:58 WBC 9.52 10^3/uL H 10^3/uL (3.80-9.50) RBC 2.98 10^6/uL L 10^6/uL (4.40-6.38) Hgb 9.9 g/dL L g/dL (13.7-17.5) Hct 28.6 % L % (40.0-51.0) MCV 96.0 fL fL (81.5-99.8) MCH 33.2 pg pg (27.9-34.1) MCHC 34.6 g/dL g/dL (32.4-36.7) RDW 16.9 % H % (11.5-15.2) Plt Count 267 10^3/uL 10^3/uL (150-400) MPV 9.2 fL fL (8.7-11.7) Neut % (Auto) 83.5 % H % (39.3-74.2) Lymph % (Auto) 11.1 % L % (15.0-45.0) [place] % (Auto) 4.9 % % (4.5-13.0) Eos % (Auto) 0.0 % L % (0.6-7.6) Baso % (Auto) 0.1 % L % (0.3-1.7) Nucleat RBC Rel Count 0.0 % % (0.0-0.2) Absolute Neuts (auto) 7.94 10^3/uL H 10^3/uL (1.70-6.50) Absolute Lymphs (auto) 1.06 10^3/uL 10^3/uL (1.00-3.00) Absolute Monos (auto) 0.47 10^3/uL 10^3/uL (0.30-0.80) Absolute Eos (auto) 0.00 10^3/uL L 10^3/uL (0.03-0.40) Absolute Basos (auto) 0.01 10^3/uL L 10^3/uL (0.02-0.10) Absolute Nucleated RBC 0.00 10^3/uL 10^3/uL (0-0.01) Immature Gran % 0.4 % % (0.0-1.1) Immature Gran # 0.04 10^3/uL 10^3/uL (0.00-0.10) PT 13.6 SEC SEC (12.0-15.0) INR 1.02 (0.83-1.16) APTT 23.3 SEC SEC (23.0-38.0) Sodium 130 mEq/L L mEq/L (135-145) Potassium 4.3 mEq/L mEq/L (3.5-5.2) Chloride 89 mEq/L L mEq/L (97-110) Carbon Dioxide 20 mEq/l L mEq/l (22-31) Anion Gap 21 mEq/L H mEq/L (8-16) BUN 46 mg/dL H mg/dL (7-23) Creatinine 9.7 mg/dL H* mg/dL (0.7-1.3) Estimated GFR 5 Glucose 123 mg/dL H mg/dL (70-100) Calcium 10.0 mg/dL mg/dL (8.5-10.4) Total Bilirubin 1.0 mg/dL mg/dL (0.1-1.4) Conjugated Bilirubin 0.7 mg/dL H mg/dL (0.0-0.5) Unconjugated Bilirubin 0.3 mg/dL mg/dL (0.0-1.1) AST 42 IU/L IU/L (17-59) ALT 21 IU/L IU/L (21-72) Alkaline Phosphatase 133 IU/L H IU/L (38-126) Creatine Kinase 214 IU/L IU/L (0-224) CK-MB (CK-2) Fraction 2.47 ng/mL ng/mL (0.00-3.19) Troponin I 0.222 ng/mL H ng/mL (0.000-0.034) NT-Pro-B Natriuret Pep 74263 pg/mL H pg/mL (0-125) Total Protein 6.6 g/dL g/dL (6.3-8.2) Albumin 4.1 g/dL g/dL (3.5-5.0) Lipase 186 IU/L IU/L (23-300) Specimen Hemolysis 148 Medications Given: Discontinued Medications Hydromorphone HCl (Dilaudid) 1 mg IVP EDNOW ONE Stop: 01/21/18 13:05 Last Admin: 01/21/18 13:31 Dose: 1 mg Sodium Chloride (Ns) 500 mls @ 1,000 mls/hr IV EDNOW ONE PRN Reason: Protocol Stop: 01/21/18 13:31 Last Admin: 01/21/18 13:29 Dose: 500 mls Famotidine/Sodium Chloride (Pepcid 20 Mg (Premix)) 50 mls @ 200 mls/hr IV EDNOW ONE Stop: 01/21/18 13:26 Last Admin: 01/21/18 13:30 Dose: 50 mls Departure - Departure Disposition: [facility] Inpatient Acute Clinical Impression: Chest pain, Amyloidosis, Renal failure, Elevated troponin Referrals: Angel Quiñones MD [Primary Care Provider] - As per Instructions
[2018-01-21 13:30] LABS: CREATINE KINASE 214 IU/L (0-224)
[2018-01-21] MEDS ORDERED: ONDANSETRON 4 MG/2 ML VIAL IVP PRN (15:00)
[2018-01-21] MEDS ORDERED: ACETAMINOPHEN 325 MG TAB PO PRN (15:00)
[2018-01-21] MEDS ORDERED: ACETAMINOPHEN 325 MG TAB ONE (15:35)
[2018-01-21] MEDS ORDERED: oxyCODONE IR 5 MG TAB PO PRN (16:26)
--- NOTE | 2018-01-21 16:28 | ECHO ---
[email or web address] [address] [address] Main: [phone] Fax: Transthoracic Echocardiogram Name: MARC SALDANA MR#: [id number] Study Date: 01/21/2018 Study Time: 03:21 PM Date of : 1945 Age: 72 year(s) Height: 182.9 cm (72 in.) Weight: 79.38 kg (175 lb.) BSA: 2.01 m2 Gender: Male Examination: Echo Indication: Image Quality: Contrast: Requested by: Isaac Mojica BP: 120 mmHg/78 mmHg Heart Rate: Rhythm: Indication: Procedure Staff Infection Control Nurse: Robert Stinson RDCS Reading Physician: Sin Souza MD Requesting Provider: Conclusions: No pericardial effusion. Dilated left ventricle with borderline LV systolic function. Ejection fraction 50%. Mild mitral regurgitation. Known history of cardiac amyloid. Measurements: Chambers Valvular Assessment AV/MV Valvular Assessment TV/PV Normal Normal Normal Name Value Range Name Value Range Name Value Range Ao Ann (MM): 3.3 cm (2.2 cm-3.7 AV Vmax: 1.45 m/s (1 m/s-1.7 TR Vmax: 2.77 mm/s ( - ) cm) m/s) TR PGmax: 31 mmHg ( - ) IVSd (MM): 1.2 cm (0.6 cm-0.9 AV maxP mmHg ( - ) syst. PAP: 36 mmHg ( - ) cm) LVOT Vmax: 0.84 m/s (0.7 m/s-1.1 PV Vmax: 1.00 m/s (0.6 m/s-0.9 LVDd (MM): 6.4 cm (4.2 cm-5.9 m/s) m/s) cm) MICHELLE (Vmax): 2.2 cm2 ( - ) PV PGmax: 4 mmHg ( - ) LVDs (MM): 4.9 cm (2 cm-3.8 MV E Vmax: 0.57 m/s ( - ) cm) MV A Vmax: 1.04 m/s ( - ) LVPWd (MM): 1.1 cm (0.6 cm-1 MV E/A: 0.55 ( - ) cm) MV maxP mmHg ( - ) LVOTd 2.2 cm 2.2 cm mm MV meanP mmHg ( - ) LVEF (MM): 46 (>=55 %) Visual EF: 50 % EF Range: 50-55 % Continued Measurements: Chambers Valvular Assessment AV/MV Valvular Assessment TV/PV Name Value Name Value Name Value LADs Lon.1 cm MV Annulus: 4.3 cm CVP (est.): 5 mmHg LA Area: 28.9 cm2 MV E/E' Septal: 24.30 MV E/E' Lateral: 8.20 MV VTI: 30.90 cm Patient: MARC SALDANA Study Date: 01/21/2018 Page 1 of 2 03:21 PM MR ERO: 0.140 cm2 MR PISA radius: 7 mm MR Reg. Volume: 23 ml MR Reg. Fraction: 5 % Findings: Left Ventricle: Dilated left ventricle. No LV hypertrophy. Low normal left ventricular systolic function. The ejection fraction is estimated to be 50-55 %. The ejection fraction is visually estimated to be 50 %. Diastolic dysfunction is present. . Right Ventricle: Normal size right ventricle. Normal RV function. Left Atrium: The left atrium is normal in size. Right Atrium: The right atrium is normal in size. Mitral Valve: The mitral valve is normal in appearance. Mild mitral valve regurgitation is present. Aortic Valve: The aortic valve is tri-leaflet and functions normally. Tricuspid Valve: The tricuspid valve is normal in appearance and function. Pulmonic Valve: The pulmonic valve is normal in appearance and function. Aorta: The aorta is normal. Pericardium: No pericardial effusion. (No Signature Object) Patient: MARC SALDANA Study Date: 01/21/2018 Page 2 of 2 03:21 PM [id number]
--- NOTE | 2018-01-21 17:03 | GHP ---
[f rep st] HISTORY AND PHYSICAL DATE OF ADMISSION: 01/21/2018 CHIEF COMPLAINT: Chest pain. PRIMARY ONCOLOGIST: Dr. Quiñones. PRIMARY POINTER MACHINE OPERATOR: Dr. Phillips. PRIMARY SOLDERING MACHINE OPERATOR: Dr. Chilel. HISTORY OF PRESENT ILLNESS: A 72-year-old male with amyloidosis, with cardiac involvement, end-stage renal disease, on peritoneal dialysis, hypertension, history of DVT, here with a son, with chest pain. He is known to have chest pain related to his chemotherapy, which he started in November of this year. He was last dosed chemotherapy yesterday. Pain developed yesterday, more significantly today. He was lying in bed and developed substernal chest pain with radiation to his arms with associated numbness. He also has teeth pain, which is consistent with prior episodes. Denies any associated nausea, vomiting , or sweats. Mild shortness of breath. Denies diarrhea. No myalgias. No recent cold symptoms. Does not use oxygen at home. Has noticed increased belching. Per son, he has had more swelling in his legs for the past couple weeks. Left cardiac catheterization showed nonobstructive disease in March of 2017. REVIEW OF SYSTEMS: I completed a 10-point review of systems, negative except as noted in HPI. PAST MEDICAL HISTORY: 1. Amyloidosis with cardiac involvement, on chemotherapy. 2. End-stage renal disease, on peritoneal dialysis. 3. Chronic diastolic heart failure. 4. Anemia of kidney disease. 5. Hypertension. 6. Nonobstructive coronary disease. 7. DVT. 8. Depression. 9. B-cell lymphoma. 10. Type 2 diabetes. 11. History of prostate cancer. PAST SURGICAL HISTORY: PD catheter placement, TKA, tonsillectomy, vasectomy. SOCIAL HISTORY: Lives in [place] with his son. Smokes marijuana nightly for insomnia. No tobacco or alcohol. HOME MEDICATIONS: Tramadol 50 mg q.4 p.r.n., Ambien 5 mg p.r.n. q.h.s., tamsulosin 0.4 mg, sodium bicarbonate 1300 mg twice b.i.d., Renvela 800 mg b.i.d. meals, potassium 10 mEq daily, Protonix 40 mg daily, Zofran as needed, Lopressor 25 mg b.i.d., losartan 25 mg daily, Ativan 0.5 mg q.6 hours p.r.n., Dilaudid 2 to 4 q.4 hours p.r.n., Neurontin 100 mg q.h.s., Lasix 20 daily, Proscar 5 mg daily, Decadron 20 mg p.r.n., cyclophosphamide 450 mg weekly, vitamin D 3000 daily, calcitriol 0.25 mcg Wednesday, Wednesday, Wednesday, Velcade, acyclovir 200 mg b.i.d., Tylenol as needed. PHYSICAL EXAM: VITAL SIGNS: Temperature 37.0, blood pressure 125/81, heart rate is 107, respirations 20, 100% on room air. GENERAL: male in no acute distress. Tired appearing. HEENT: PERRLA. Oropharynx clear. CV: Regular. Murmur present throughout. +3 pitting edema to the knees , bilateral legs. LUNGS: Clear. No crackles. ABDOMEN: Obese. PD catheter in place without signs of infection. : No Rajput. MUSCULOSKELETAL: 5/5 upper and lower extremity strength. NEUROLOGIC: 2 through 12 intact. PSYCH: Alert and oriented x3. LABS: WBC is 9, hemoglobin 9, hematocrit 28, platelets 267. INR is 1.0, PT is 13. Sodium is 130, potassium 4.3, chloride 89, carbon dioxide 20, anion gap 21 , BUN 46, creatinine 9.7, glucose 123, total bilirubin 1, conjugated 0.7, alkaline phosphatase 133. Troponin 0.22. BNP is 23,400. ASSESSMENT AND PLAN: 1. Atypical chest pain: Symptoms are similar to prior episodes related to chemotherapy. Pain began yesterday after he was dosed chemo. The troponin is elevated to at 0.22, which is higher than his baseline. EKG shows more prominent ST segments. We will monitor in the PCU, repeat troponin. He had a normal catheterization last year, so low likely acute coronary syndrome. No recent infection to consider myocarditis. 2. Volume overload: Secondary to end-stage renal disease, diastolic heart failure. I have talked to Nephrology to resume his peritoneal dialysis. 3. Amyloidosis: He is followed by Dr. Quiñones, last dose yesterday. 4. Anemia of kidney disease: H and H stable. No indication for transfusion. 5. Depression: Not on medications. 6. History of deep vein thrombosis: Had a negative V/Q scan 05/2017. 7. Uremia secondary to end-stage renal disease: Again, plan for dialysis per Nephrology. 8. Hypervolemic hyponatremia: HD. 9. Elevated troponin: from volume overload. Normal cath last year, no WMA on echo. Further cardiac eval not needed 10 Diet: Renal. 11. DVT prophylaxis: Subcu heparin. . Patient warrants observation admission to PCU for telemetry, serial troponin , and dialysis. /[id number]/MODL MTDD
--- NOTE | 2018-01-21 17:05 | SOAPPROG ---
SOAP Progress Note Assessment/Plan: Assessment: 72-year-old male with biopsy-proven cardiac amyloidosis and end-stage renal disease he is currently on hemodialysis. He presents to the emergency department with ongoing symptoms of [place] heart Association functional Class 3 exertional dyspnea associated with anginal quality chest discomfort. He has no known underlying atherosclerotic coronary artery disease. Previous cardiac catheterization less than a year ago was noted to be normal. By exam he appears to be modestly volume overloaded. Overall, I think his major problem at the present time represents his volume status. I think he would benefit from more aggressive removal of volume. I wonder if this can be affectively accomplished with peritoneal dialysis. Unfortunately, it does not appear that he has derived any significant benefit from recent chemotherapy. Plan: 1. He will be admitted to the hospital. 2. Nephrology has been consulted regarding assistance in optimization of his volume status. 3. I do not think he needs serial troponin evaluations or further workup for underlying ischemia. 4. Unfortunately, I think his overall prognosis is very poor. 5. We will follow at a distance. Please call us if there are further cardiac concerns. 01/21/18 17:06 Subjective: The patient was seen and examined. His chart was reviewed. He is well known to me from my outpatient clinic. He has known cardiac amyloidosis (biopsy proven). He has undergone an extensive previous cardiac evaluation including coronary angiography with no indication of underlying CAD. At his baseline, he is [place] heart Association functional class 3. He typically has symptoms of exertional dyspnea and anginal quality chest discomfort with only modest activity. He comes in today with similar complaints. He states that he has not had any benefit from the 10 rounds of chemotherapy that he is really see thus far. He continues to have exertional dyspnea/anginal chest discomfort. Additionally, he has had episodes of resting chest discomfort described as a pressure sensation in his chest associated with excessive belching. He has not had any palpitations. He notes no dizziness or lightheadedness. There has not been any syncope. He thinks his weight has increased several lb. He was also had the recent development of lower extremity edema. Objective: Vital Signs Temp Pulse Resp BP Pulse Ox 37.0 C 100 15 131/93 H 96 01/21/18 12:37 01/21/18 16:30 01/21/18 16:30 01/21/18 16:30 04/13/18 16:30 PT 13.6 SEC (12.0-15.0) 01/21/18 12:58 INR 1.02 (0.83-1.16) 01/21/18 12:58 Physical Exam - Physical Exam General Appearance: WD/WN, no apparent distress Neck: non-tender, full range of motion Respiratory: chest non-tender, lungs clear, normal breath sounds, No respiratory distress, No accessory muscle use Cardiac/Chest: regular rate, rhythm, edema (By pedal pitting edema 1/2 inch to the knee), gallop (Positive S3), systolic murmur (1/6 holosystolic murmur left sternal border), No JVD, No bradycardia, No tachycardia Peripheral Pulses: 2+: carotid (R), carotid (L) Abdomen: normal bowel sounds, non-tender, soft, No organomegaly Male Genitalia: deferred Rectal: deferred Neuro/Psych: alert, oriented x 3 ICD10 Worksheet Patient Problems: Problems Problem Status Onset Amyloidosis Acute Chest pain Acute Elevated troponin Acute Renal failure Acute Headache Active Congestive heart failure Acute Hyperkalemia Acute Syncope Acute
[2018-01-21] MEDS: ONDANSETRON DISINTEGRATING 4 MG TAB PO PRN (19:33)
[2018-01-21] MEDS ORDERED: HYDROmorphONE/DILAUDID 2 MG TAB PO PRN (21:55)
[2018-01-21] MEDS ORDERED: traMADol 50 MG TAB PO PRN (21:55)
[2018-01-22] MEDS: HEPARIN 5,000 UNIT/0.5 ML SYR SC SCH ×3 (05:00→21:00)
[2018-01-22] MEDS ORDERED: METOPROLOL TARTRATE 25 MG TAB PO SCH (09:00)
[2018-01-22] MEDS ORDERED: ENOXAPARIN 40 MG/0.4 ML SYR SC SCH (09:00)
--- NOTE | 2018-01-22 09:01 | SOAPPROG ---
SOTREVIN Progress Note Assessment/Plan: Assessment: 72 y/o man with known systemic amyloidosis with known cardiac involvement and chronic CP. He was admitted with more CP and fatigue yesterday. This morning he has done much out of bed but is not having CP currently. He is getting weaker despite being on chemo for last several months. Chronically elevated troponin is seen in cardiac amyloidosis. I do not think he has obstructive CAD and need repeat cath or PCI currently. REC: 1)stop short acting metoprolol tartrate 2)start Toprol XL 25mg PO qam. 3)ecg today 4)as long as no extreme ecg abnormalities, pt does not need to stay in hospital from cardiac standpoint 5)follow up Dr. Quiñones and Cards-Dr. Dwaine Chilel. 01/22/18 08:57 Subjective: no more CP. He feels weak and tired. Denies PND, orthopnea or cough or fevers or severe ripping back pain. Objective: Vital Signs Temp Pulse Resp BP Pulse Ox 36.7 C 83 12 113/72 98 01/22/18 07:19 01/22/18 07:19 01/22/18 07:19 01/22/18 07:19 01/22/18 07:19 Laboratory Results 01/22/18 04:07 01/21/18 01/22/18 01/23/18 05:59 05:59 05:59 Intake Total 300 Balance 300 PT 13.6 SEC (12.0-15.0) 01/21/18 12:58 INR 1.02 (0.83-1.16) 01/21/18 12:58 Physical Exam - Physical Exam General Appearance: alert EENT: normal ENT inspection Neck: full range of motion Respiratory: rales (rales (rt>left)) Cardiac/Chest: regular rate, rhythm, JVD, systolic murmur, No gallop Peripheral Pulses: 2+: carotid (R), carotid (L), femoral (R), femoral (L), dorsalis-pedis (R), dorsalis-pedis (L) Abdomen: non-tender Skin: warm/dry Extremities: No pedal edema Neuro/Psych: oriented x 3 ICD10 Worksheet Patient Problems: Problems Problem Status Onset Amyloidosis Acute Chest pain Acute Elevated troponin Acute Renal failure Acute Headache Active Congestive heart failure Acute Hyperkalemia Acute Syncope Acute
[2018-01-22] MEDS: FINASTERIDE 5 MG TAB PO SCH (09:16)
[2018-01-22] MEDS: TAMSULOSIN HCL 0.4 MG CAP PO SCH (09:16)
[2018-01-22] MEDS: PANTOPRAZOLE SODIUM 40 MG TAB PO SCH (09:16)
[2018-01-22] MEDS: ACYCLOVIR 200 MG CAP PO SCH (09:16)
[2018-01-22] MEDS: CHOLECALCIFEROL VIT D3 1,000 UNITS TAB PO SCH (09:17)
[2018-01-22] MEDS: METOPROLOL SUCCINATE XR 25 MG TAB PO SCH (09:17)
[2018-01-22] MEDS: POTASSIUM CL 10 MEQ TAB PO SCH (09:17)
[2018-01-22] MEDS: Sevelamer Carbonate [Renvela] 800 MG PO SCH ×2 (09:18→18:17)
--- NOTE | 2018-01-22 09:28 | CPEKG ---
Heart Rate: 82 RR Interval: 732 P-R Interval: 232 QRSD Interval: 86 QT Interval: 440 QTC Interval: 514 P [place]: 11 QRS [place]: -11 T Wave [place]: 17 EKG Severity - ABNORMAL ECG - EKG Impression: SINUS RHYTHM EKG Impression: FIRST DEGREE AV BLOCK EKG Impression: PROLONGED QT INTERVAL Electronically Signed By: Melisa Kaplan 22-Jan-2018 19:58:28
--- NOTE | 2018-01-22 10:45 | HOSPPROG ---
Hospitalist Progress Note Assessment/Plan: Chest pain - echo reviewed, ER 50%, no pericardial effusion, [facility] 03/2017- non- obstructive CAD. Discussed with cards. This is chronic and no interventions recommended. -Toprol 25 -EKG reviewed, no acute ischemic changes Amyloidosis - may be contributory to chest pain, on chemo Volume overload in setting of ESRD - On PD per renal, may require HD Chronic diastolic HF - volume removal as above. Anemia of CKD - hgb stable, Epo per renal service Hypertension - changed from metoprolol tartrate to metoprolol succinate once daily, BP's well controlled (a bit low, monitor) H/O B cell lymphoma H/O DVT Full code DVT PPLX - FATOU Dispo - change to inpt as needs ongoing dialysis for volume overload Subjective: Pt doing ok. Denies CP or SOB at rest. Endorses CARDOSO. appetite fair. Objective: Vital Signs Temp Pulse Resp BP Pulse Ox 36.7 C 83 12 113/72 98 01/22/18 07:19 01/22/18 07:19 01/22/18 07:19 01/22/18 07:19 01/22/18 07:19 Laboratory Results 01/22/18 04:07 01/21/18 01/22/18 01/23/18 05:59 05:59 05:59 Intake Total 300 Balance 300 PT 13.6 SEC (12.0-15.0) 01/21/18 12:58 INR 1.02 (0.83-1.16) 01/21/18 12:58 - Physical Exam Constitutional: no apparent distress Eyes: PERRL Ears, Nose, Mouth, Throat: moist mucous membranes Cardiovascular: regular rate and rhythym Respiratory: no respiratory distress, inspiratory crackles Gastrointestinal: normoactive bowel sounds, soft, non-tender abdomen Skin: warm Musculoskeletal: full muscle strength Neurologic: AAOx3 Psychiatric: interacting appropriately ICD10 Worksheet Patient Problems: Problems Problem Status Onset Amyloidosis Acute Chest pain Acute Elevated troponin Acute Renal failure Acute Headache Active Congestive heart failure Acute Hyperkalemia Acute Syncope Acute
--- NOTE | 2018-01-22 11:15 | PDCONSULT ---
Professional Nursing Assistant Note: Reason for Consult: management of ESRD CC: chest pain and shortness of breath HPI: 72 yo male with DM II, ESRD (on PD followed by Dr. 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 He reports that he had an episode of chest pain on the day prior to admission at his physician's office. A medication (he is not sure which) was changed. On the day of admission, patient reports that he was rushing to his doctor's appointment because he was running late. He developed some chest pressure in the center of his chest and associated shortness of breath. Chest pain di not radiate. He reports that he just couldn't catch his breath and he started shaking some. Patient has experienced this chest pain before. Patient reports that he has been on PD for about 1.5 years. He is anuric. Patient reports that he is on the cycler at night. He reports that he does a total of 6L volume, 6 exchanges, on cycler for 10hrs. He puts 3 bags on the cycler and has recently been doing 2 bags of 2.5% dextrose solution and 1 bag of 1.5% dextrose solution. No last fill Initially patient reported that he has not been getting any UF on the cycler but today he says that he has been getting 900mL UF. He does report that he has had increased swelling recently. He reports that Dr. Phillips wants his weight at 195lbs and that he was up to 206lbs prior to admission. Note: checked outpatient clinic note, see plan below for accurate PD Rx. Per outpatient note, patient has chronic LE edema primarily due to lymphatic obstruction. Currently, patient denies chest pain and shortness of breath. He had some nausea with his blood draw this morning but it has now resolved. He reports lightheadedness when he gets up in the morning. He has been belching a lot and coughing up some phlegm. He denies constipation. He takes miralax and reports some diarrhea with the constipation. He denies blood in his stools. Social Hx: denies smoking and alcohol use Family Hx: no known family history of kidney disease ROS: 11 systems reviewed and negative except for that discussed in HPI above Generic Name Dose Route Start Last Admin Trade Name Tristonq PRN Reason Stop Dose Admin Acetaminophen 650 mg 01/21/18 21:55 Tylenol PO 07/20/18 21:54 Q4HRS PRN Pain, Mild/Fever, Can Take PO Acyclovir 200 mg 01/22/18 09:00 01/22/18 09:16 Zovirax PO 02/21/18 08:59 200 mg DAILY FATOU Administration Calcitriol 0.5 mcg 01/24/18 09:00 Calcitriol PO 07/23/18 08:59 [id number]@09 FATOU Cholecalciferol 1,000 units 01/22/18 09:00 01/22/18 09:17 Vitamin D PO 07/21/18 08:59 1,000 units DAILY FATOU Administration Finasteride 5 mg 01/22/18 09:00 01/22/18 09:16 Proscar PO 07/21/18 08:59 5 mg DAILY FATOU Administration Gabapentin 100 mg 01/22/18 21:00 Neurontin PO 07/21/18 20:59 HS [facility] Heparin Sodium (Porcine) 5,000 unit 01/22/18 06:00 01/22/18 05:00 Heparin Sc Injection SC 07/21/18 05:59 5,000 unit 0600,1400,2200 FATOU Administration Hydromorphone HCl 2 - 4 mg 01/21/18 21:55 Dilaudid PO 01/31/18 21:54 Q4HRS PRN Pain, Severe Able to Take PO Lorazepam 0.5 mg 01/21/18 21:55 Ativan PO 07/20/18 21:54 Q6 PRN Anxiety Metoprolol Succinate 25 mg 01/22/18 09:00 01/22/18 09:17 Toprol Xl PO 07/21/18 08:59 25 mg DAILY FATOU Administration Miscellaneous Medication 800 mg 01/22/18 08:00 01/22/18 09:18 Sevelamer Carbonate [Renvela] PO 07/21/18 07:59 Not Given BIDMEAL FATOU Ondansetron HCl 4 mg 01/21/18 15:00 Zofran IVP 07/20/18 14:59 Q4HRS PRN Nausea/Vomiting, Can't Take PO Ondansetron HCl 4 mg 01/21/18 15:00 01/21/18 19:33 Zofran Odt PO 07/20/18 14:59 4 mg Q4HRS PRN Administration Nausea/Vomiting, Use 1st Oxycodone HCl 5 mg 01/21/18 16:26 01/21/18 18:07 Oxycodone Ir PO 01/31/18 16:25 5 mg Q6H PRN Administration Pain, Severe Able to Take PO Pantoprazole Sodium 40 mg 01/22/18 09:00 01/22/18 09:16 Protonix PO 07/21/18 08:59 40 mg DAILY FATOU Administration Potassium Chloride 10 meq 01/22/18 09:00 01/22/18 09:17 Klor-Con PO 07/21/18 08:59 10 meq DAILY FATOU Administration Tamsulosin HCl 0.4 mg 01/22/18 09:00 01/22/18 09:16 Flomax PO 07/21/18 08:59 0.4 mg DAILY FATOU Administration Tramadol HCl 50 mg 01/21/18 21:55 01/22/18 10:35 Ultram PO 07/20/18 21:54 50 mg Q4 PRN Administration Pain, Moderate Able to Take PO Discontinued Medications Generic Name Dose Route Start Last Admin Trade Name Freq PRN Reason Stop Dose Admin Acetaminophen 650 mg 01/21/18 15:00 01/21/18 15:36 Tylenol PO 07/20/18 14:59 650 mg Q4HRS PRN Administration Pain, Mild/Fever, Can Take PO Acetaminophen Confirm 01/21/18 15:35 Tylenol Administered 01/21/18 15:36 Dose 650 mg .ROUTE .STK-MED ONE Hydromorphone HCl 1 mg 01/21/18 13:04 01/21/18 13:31 Dilaudid IVP 01/21/18 13:05 1 mg EDNOW ONE Administration Sodium Chloride 500 mls @ 1,000 mls/hr 01/21/18 13:02 01/21/18 13:29 Ns IV 01/21/18 13:31 500 mls EDNOW ONE Administration Protocol Famotidine/Sodium Chloride 50 mls @ 200 mls/hr 01/21/18 13:12 01/21/18 13:30 Pepcid 20 Mg (Premix) IV 01/21/18 13:26 50 mls EDNOW ONE Administration Metoprolol Tartrate 25 mg 01/22/18 09:00 Lopressor PO 07/21/18 08:59 DAILY FATOU 01/21/18 12:58 01/22/18 04:07 Total Bilirubin 1.0 mg/dL (0.1-1.4) 01/21/18 12:58 Conjugated Bilirubin 0.7 mg/dL (0.0-0.5) H 01/21/18 12:58 Unconjugated Bilirubin 0.3 mg/dL (0.0-1.1) 01/21/18 12:58 AST 42 IU/L (17-59) 01/21/18 12:58 ALT 21 IU/L (21-72) 01/21/18 12:58 Trop 0.222 --> 0.246 Echo 01/21: no pericardial effusion. Dilated LV with borderline LV dysfunction. EF 50% + diastolic dysfunction Temp Pulse Resp BP Pulse Ox 36.7 C 83 12 113/72 98 01/22/18 07:19 01/22/18 07:19 01/22/18 07:19 01/22/18 07:19 01/22/18 07:19 Exam: General: awake, alert, well-appearing, NAD Eyes: anicteric sclera, no conjunctival injection ENT: MMM, no gross oral lesions Pulm: Few rales at right base, otherwise clear CV: normal rate, regular rhythm, + systolic murmur, 3+ LE edema GI: non-tender, PD catheter in place non-tender Extremities: moves all extremities, 3+ bilateral LE edema, normal muscle mass Skin: no rashes or bruises on exposed skin Psych: pleasant, inconsistency when answering questions Neuro: CN II-XII grossly intact, moves all extremities Assessment: 72 yo male with ESRD (on PD followed by Dr. Phillips) 2/2 amyloidosis (cardiac and renal involvement) on chemo who presents with chest pain and shortness of breath, mildly persistently elevated troponin most likely 2/2 volume overload from inadequate UF with PD. # ESRD 2/2 amyloidosis- Prescription that patient reports would be very unusual , so I suspect that the Rx listed in HPI above is not accurate. Outpatient clinic closed Cycler overnight on 01/21 with 4- 1.5L exchanges over 8hrs with combination of 4.25% and 2.5% solution. UF 737mL Home Rx from outpatient clinic note: Total volume 15L, 6 exchanges of 2.5L over 9 hours (mostly 2.5% and occasionally 1.5%). Will resume this Rx tonight but with combination of 4.25% and 2.5% solution. --Assuming symptoms are improving, planning for discharge on 01/23 with plans to follow up in PD clinic sometime next week for further education and adjustment of PD Rx as needed # Chest pain- discussed with cognos administrator (Dr. Hunter) who feels likely 2/2 volume overload and/or cardiac amyloid itself Will try for more volume removal with PD (see Rx above) # Volume overload- see above --Per clinic note, has chronic LE edema primarily 2/2 lymphatic obstruction. Hypoalbuminemia likely also contributing. Suspect patient also has significant intravascular volume overload at this point too *Would avoid further IVF Recommend compression stockings # Lightheadedness with standing- possible that patient could be developing autonomic dysfunction related to amyloid --BP currently ok, but may need to consider decreasing antihypertensive meds # Metabolic alkalosis and hypoalbuminemia- in chronic PD patient, suggestive of poor nutrition -not on sodium bicarb -CTM for now # Hypokalemia- -ok for now, CTM Thank you for this consult. I will continue to follow along. I will be metal bonding worker overnight and rounding again tomorrow (pager [phone]).
--- NOTE | 2018-01-22 15:18 | PDMN ---
Medical Necessity Medical necessity: C/M review: est. > 2 MN LOS for eval and TX of chest pain - this is chronic and no interventions needed per Cardiology, acute volume overload in the setting or ESRD requiring Cardiology consult, ongoing peritoneal dialysis, cardiac monitoring, pulse oximetry, supplemental O2, comorbid amyloidosis on chemotherapy,- may be contributory to chest pain, ESRD on peritoneal dialydisd, chronic diastolic heart failure, anemia of chronic kidney disease, hypertension, history of B cell lymphoma and DVT per 01/22/2018 Hospitalist progress note.
[2018-01-22] MEDS: POLYETHYLENE GLYCOL 3350 17 GM PKT PO PRN (16:09)
--- NOTE | 2018-01-22 16:26 | ASMTCMCOM ---
CM Note CM Note Notes: Pt admitted with CP. Per MD, no interventions recommnded. Pt has also been on PD for 1.5 yrs. Plan is to DC pt tomorrow. Pt lives at home with his and has had DC needs in the past. Anticipate pt will DC with no DC needs. Date Signed: 01/22/2018 04:26 PM Electronically Signed By:Lacy Jerome LCSW
[2018-01-22] MEDS: ONDANSETRON DISINTEGRATING 4 MG TAB PO PRN (17:56)
[2018-01-22] MEDS ORDERED: GABAPENTIN 100 MG CAP PO SCH (21:00)
[2018-01-23] MEDS: HEPARIN 5,000 UNIT/0.5 ML SYR SC SCH ×3 (05:06→22:17)
[2018-01-23] MEDS ORDERED: POTASSIUM CL 20 MEQ TAB PO ONE (07:00)
--- NOTE | 2018-01-23 08:57 | SOAPPROG ---
DA Progress Note Assessment/Plan: Assessment: 72 y/o man with known systemic amyloidosis with known cardiac involvement and chronic CP. He was admitted with more CP and fatigue. . He is getting weaker despite being on chemo for last several months. Chronically elevated troponin is seen in cardiac amyloidosis. I do not think he has obstructive CAD and need repeat cath or PCI currently. He feels better with more aggressive fluid removal from his PD. No more CP and less CARDOSO. REC: 1)no change in current cardiac meds. I would send home on Toprol XL 25mg PO qam. 2)continue more aggressive PD running his weight a little lower. 3)okay to discharge home from a cardiac standpoint today. Pt has cardiology follow up with Dr. Dwaine Chilel this upcoming Wednesday. 4)no repeat cardiac cath or new cardiolite stress test needed. Will sign off. Call if needed. Thanks. 01/23/18 08:54 Subjective: no further CP. Still CARDOSO at 50-100ft. Denies syncope, palpitations or PND or purulent sputum production. Objective: Vital Signs Temp Pulse Resp BP Pulse Ox 36.8 C 81 12 102/66 95 01/23/18 07:09 01/23/18 07:09 01/23/18 07:09 01/23/18 07:09 01/23/18 07:09 Laboratory Results 01/23/18 03:55 01/23/18 03:55 01/22/18 01/23/18 01/24/18 05:59 05:59 05:59 Intake Total 300 870 Balance 300 870 PT 13.6 SEC (12.0-15.0) 01/21/18 12:58 INR 1.02 (0.83-1.16) 01/21/18 12:58 Physical Exam - Physical Exam General Appearance: alert Neck: non-tender Respiratory: lungs clear Cardiac/Chest: regular rate, rhythm, JVD, systolic murmur, No gallop (JVP to 8cm ) Peripheral Pulses: 2+: carotid (R), carotid (L), femoral (R), femoral (L), dorsalis-pedis (R), dorsalis-pedis (L) Abdomen: non-tender, No distended, No rebound Skin: warm/dry Extremities: No pedal edema Neuro/Psych: alert ICD10 Worksheet Patient Problems: Problems Problem Status Onset Amyloidosis Acute Chest pain Acute Elevated troponin Acute Renal failure Acute Headache Active Congestive heart failure Acute Hyperkalemia Acute Syncope Acute
[2018-01-23] MEDS: TAMSULOSIN HCL 0.4 MG CAP PO SCH (09:52)
[2018-01-23] MEDS: FINASTERIDE 5 MG TAB PO SCH (09:52)
[2018-01-23] MEDS: ACYCLOVIR 200 MG CAP PO SCH (09:52)
[2018-01-23] MEDS: METOPROLOL SUCCINATE XR 25 MG TAB PO SCH (09:52)
[2018-01-23] MEDS: CHOLECALCIFEROL VIT D3 1,000 UNITS TAB PO SCH (09:52)
[2018-01-23] MEDS: PANTOPRAZOLE SODIUM 40 MG TAB PO SCH (09:53)
[2018-01-23] MEDS: POTASSIUM CL 10 MEQ TAB PO SCH (09:53)
[2018-01-23] MEDS: Sevelamer Carbonate [Renvela] 800 MG PO SCH ×2 (10:04→18:21)
--- NOTE | 2018-01-23 10:38 | SOAPPROG ---
SOAP Progress Note Assessment/Plan: Assessment/Plan: 72 yo male with ESRD (on PD followed by Dr. Phillips) 2/2 amyloidosis (cardiac and renal involvement) on chemo who presents with chest pain and shortness of breath, mildly persistently elevated troponin most likely 2/2 volume overload from inadequate UF with PD. # ESRD 2/2 amyloidosis- Prescription that patient reports would be very unusual , so I suspect that the Rx listed in HPI above is not accurate. Outpatient clinic closed Cycler overnight on 01/21 with 4- 1.5L exchanges over 8hrs with combination of 4.25% and 2.5% solution. UF 737mL Home Rx from outpatient clinic note: Total volume 15L, 6 exchanges of 2.5L over 9 hours (mostly 2.5% and occasionally 1.5%). Resumed this Rx night of 01/22 but with combination of 4.25% and 2.5% solution , UF 2091mL. Chest pain symptoms and shortness of breath appear to have improved , but patient overall not feeling well. Will do all 2.5% dextrose solution overnight on 01/23. per nursing, PO intake poor --Patient overall not feeling well, will plan to keep another night # Chest pain- discussed with driver utility worker (Dr. Hunter) who feels likely 2/2 volume overload and/or cardiac amyloid itself Improved with UF overnight on 01/22 # Volume overload- see above --Per clinic note, has chronic LE edema primarily 2/2 lymphatic obstruction. Hypoalbuminemia likely also contributing. Suspect patient also has significant intravascular volume overload at this point too *Would avoid further IVF compression stockings were ordered # Lightheadedness with standing- possible that patient could be developing autonomic dysfunction related to amyloid --BP currently ok, but may need to consider decreasing antihypertensive meds Checking orthostatics on 01/23 Can d/c Tamsulosin as patient is anuric # Metabolic alkalosis and hypoalbuminemia- in chronic PD patient, suggestive of poor nutrition -not on sodium bicarb -CTM for now # Hypokalemia- Getting 30meq of KCl on AM 01/23 # Headache- could be related to the UF, but not clear --Further evaluation per primary # Belching- gas may be related to constipation Could try simethicone. Belching typically not a uremic symptom # Constipation- Agree with bowel regimen, particularly in a PD patient as it can lead to difficulty draining PD fluid May want to escalate regimen if no BM today Plan discussed with Dr. Yates. Thank you for this consult. I will continue to follow along. Subjective: No further chest pain or shortness of breath. Toxey well when cardiology saw him this morning. Reporting head fullness to me. Lightheadedness when standing despite normal BP at rest. He overall doesn't feel well and feels like he can't think. Checking orthostatics. Also reports a lot of belching. No BM in 2-3 days , received Miralax yesterday. Objective: Vital Signs Temp Pulse Resp BP Pulse Ox 36.8 C 81 12 102/66 95 01/23/18 07:09 01/23/18 07:09 01/23/18 07:09 01/23/18 07:09 01/23/18 07:09 Laboratory Results 01/23/18 03:55 01/23/18 03:55 01/22/18 01/23/18 01/24/18 05:59 05:59 05:59 Intake Total 300 870 Balance 300 870 PT 13.6 SEC (12.0-15.0) 01/21/18 12:58 INR 1.02 (0.83-1.16) 01/21/18 12:58 Phos 4.7 Albumin 2.9 Physical Exam - Physical Exam General Appearance: alert, other (appears uncomfortable) EENT: other (anicteric sclera, no conjunctival injection) Respiratory: lungs clear, normal breath sounds, other (breathing comfortably on RA) Cardiac/Chest: systolic murmur Abdomen: non-tender, soft Extremities: other (trace-1+ bilateral edema with some wrinkling of skin) Neuro/Psych: alert, cognition abnormalities (poor historian) ICD10 Worksheet Patient Problems: Problems Problem Status Onset Amyloidosis Acute Chest pain Acute Elevated troponin Acute Renal failure Acute Headache Active Congestive heart failure Acute Hyperkalemia Acute Syncope Acute
--- NOTE | 2018-01-23 10:58 | HOSPPROG ---
Hospitalist Progress Note Assessment/Plan: Chest pain - echo reviewed, ER 50%, no pericardial effusion, [facility] 03/2017- non- obstructive CAD. Discussed with cards. This is chronic, likely related to amyloid involvement and no interventions recommended. -Toprol 25 -EKG reviewed, no acute ischemic changes Amyloidosis - has been contributory to chest pain, on chemo, followed by Dr. Quiñones -oncology consult requested to help elicit if non-specific symptoms below are related to amyloid or chemo Cognitive changes - pt describes as "feeling foggy", but with neurologic symptoms, which may be neuropathic pain -check head CT to evaluate for cerebral involvement Chills/tremors - vague symptoms. No localizing infectious symptoms, afebrile, nl wbcs -send blood cultures -check PCT Eructation - trial simethicone Peripheral neuropathy - increased neuropathic symptoms b/l UE's and LE's -increase gabapentin to 100 mg BID (low dose due to ESRD) Volume overload in setting of ESRD - On PD per renal, cont with volume removal. Chronic diastolic HF - volume removal per renal as above. Anemia of CKD - hgb stable, Epo per renal service Hypertension - changed from metoprolol tartrate to metoprolol succinate once daily, BP's well controlled (a bit low, monitor) H/O B cell lymphoma H/O DVT Full code DVT PPLX - FATOU Dispo - cont inpt Subjective: Pt feels "foggy". He has multiple vague complaints. Gets chilled, shakey. Feels paresthesias in both feet and in fingertips. Can't think clearly. Doesn't know what is happening to his body. No fevers. No CP, SOB, abdomninal pain, or N/V. He c/o frequent belching. Objective: Vital Signs Temp Pulse Resp BP Pulse Ox 36.8 C 81 12 102/66 95 01/23/18 07:09 01/23/18 07:09 01/23/18 07:09 01/23/18 07:09 01/23/18 07:09 Laboratory Results 01/23/18 03:55 01/23/18 03:55 01/22/18 01/23/18 01/24/18 05:59 05:59 05:59 Intake Total 300 870 Balance 300 870 PT 13.6 SEC (12.0-15.0) 01/21/18 12:58 INR 1.02 (0.83-1.16) 01/21/18 12:58 - Physical Exam Constitutional: no apparent distress Eyes: PERRL Ears, Nose, Mouth, Throat: moist mucous membranes Cardiovascular: regular rate and rhythym Respiratory: no respiratory distress, clear to auscultation Gastrointestinal: normoactive bowel sounds, soft, non-tender abdomen Skin: warm Musculoskeletal: full muscle strength Neurologic: other (no facial asymmetry, speech fluent, no pronator drift, 5/5 muscle strength UE's and LE's) Psychiatric: interacting appropriately ICD10 Worksheet Patient Problems: Problems Problem Status Onset Amyloidosis Acute Chest pain Acute Elevated troponin Acute Renal failure Acute Headache Active Congestive heart failure Acute Hyperkalemia Acute Syncope Acute
[2018-01-23] MEDS ORDERED: TEARS/DEXTRAN 70/HYPROMELLOSE 15 ML OPHT.BTL EACHEYE PRN (12:28)
[2018-01-23] MEDS: SENNOSIDES/DOCUSATE SODIUM TAB PO SCH ×3 (12:39→22:18)
[2018-01-23] MEDS: SIMETHICONE 80 MG TAB CHEW PO SCH ×3 (14:27→22:25)
--- NOTE | 2018-01-23 16:27 | ASMTCMCOM ---
CM Note CM Note Notes: Patient having CP, on dialysis, 3x/wk in [place] and Chemo 1x/wk. Reports that his needs hip replacements and really unable to help him very much. They do have a son who lives at home and helpful. Patient is interested in HC-PT/OT/RN on discharge. He has had [facility] in the past and prefers them. [facility] does not have availability on Wednesday-call them Wednesday to determine availability later in the week. Date Signed: 01/23/2018 04:27 PM Electronically Signed By:Karen Mari LCSW
--- NOTE | 2018-01-23 17:36 | GCON ---
[f rep st] CONSULTATION ONCOLOGY CONSULTATION NOTE REASON FOR CONSULTATION: Chest pain with history of AL-type amyloidosis. HISTORY OF PRESENT ILLNESS: The patient is a very pleasant 72-year-old male with a history of AL-type amyloidosis and superficial phlebitis. He was diagnosed in February of 2005 when he presented with a bulky adenopathy throughout. He initially was treated with a course of Velcade, Revlimid, and dexamethasone and had a modest benefit with reduction in the lymphadenopathy. The patient's amyloid biopsy of the heart came back showing AL amyloid in September of 2017. At that point, he was started on treatment with Cytoxan, bortezomib, and dexamethasone. He has end-stage renal disease related to the amyloid and is on peritoneal dialysis. He has suffered from intermittent episodes of severe chest pain, along with teeth pain, which is his anginal equivalent. He was seen in the office on Wednesday and had a severe episode of pain in the parking lot and was admitted for further evaluation. He is currently day 4, cycle 4 of CyBorD (Cytoxan, bortezomib, and dexamethasone. PAST MEDICAL HISTORY: 1. End-stage renal disease, on peritoneal dialysis. 2. Chronic diastolic heart failure. 3. Anemia of kidney disease. 4. Hypertension. 5. Nonobstructive coronary disease. 6. History of DVT. 7. History of depression. 8. History of B-cell lymphoma. 9. Type 2 diabetes. 10. History of prostate cancer. PAST SURGICAL HISTORY: He has a peritoneal dialysis catheter placement. SOCIAL HISTORY: Previously worked as a high school combination teacher. He does smoke marijuana for insomnia. He does not drink alcohol. REVIEW OF SYSTEMS: CONSTITUTIONAL: Negative for any fever. NEURO: He does have peripheral neuropathy. Ten-point review of systems is otherwise negative. PHYSICAL EXAM: VITAL SIGNS: Blood pressure 105/59, O2 sat 96% at rest, heart rate 83. GENERAL: He is fatigued appearing. HEENT: He has obvious swelling in his right cervical chain. LUNGS: Clear to auscultation. HEART: Regular rate. ABDOMEN: Soft, nontender. EXTREMITIES: 1+ bilateral lower extremity edema. LABORATORY DATA: White blood cell count 4.0, hematocrit 27.2, platelets are 182. Comprehensive metabolic panel with creatinine of 9.8, which is patient's baseline, albumin of 2.9. IMPRESSION: This is a very unfortunate 72-year-old male with a longstanding history of amyloid light chain amyloidosis with end-stage renal disease and cardiac involvement. The patient has significant diastolic dysfunction and has symptoms of chest pain and volume overload related to that. He is now receiving his 4th cycle of CyBorD. Objective response in this disease is very difficult to assess. BNP has been relatively stable without any evidence of a downward trend. The patient did mention that IV morphine previously has helped episodes of pain and dyspnea. We discussed consideration of a trial of Roxanol when he has these episodes. Will discuss with the patient's primary care team. When Dr. Quiñones saw him last week, he did recommend a palliative care consult, given the increasing difficulty of caring for him at home. Will continue to follow along with you. /[id number]/MODL MTDD
[2018-01-23] MEDS: POLYETHYLENE GLYCOL 3350 17 GM PKT PO PRN (22:17)
[2018-01-23] MEDS: GABAPENTIN 100 MG CAP PO SCH (22:18)
[2018-01-23] MEDS: CARBOXYMETHYLCELLULOSE 0.5% 0.4 ML DROPERETTE EACHEYE PRN (22:55)
[2018-01-24] MEDS: HEPARIN 5,000 UNIT/0.5 ML SYR SC SCH ×3 (06:04→21:32)
[2018-01-24] MEDS: CALCITRIOL 0.25 MCG CAP PO SCH (10:35)
[2018-01-24] MEDS: GABAPENTIN 100 MG CAP PO SCH ×2 (10:35→21:31)
[2018-01-24] MEDS: SIMETHICONE 80 MG TAB CHEW PO SCH ×6 (10:36→21:31)
[2018-01-24] MEDS: PANTOPRAZOLE SODIUM 40 MG TAB PO SCH (10:36)
[2018-01-24] MEDS: METOPROLOL SUCCINATE XR 25 MG TAB PO SCH (10:36)
[2018-01-24] MEDS: ACYCLOVIR 200 MG CAP PO SCH (10:37)
[2018-01-24] MEDS: FINASTERIDE 5 MG TAB PO SCH (10:37)
[2018-01-24] MEDS: CHOLECALCIFEROL VIT D3 1,000 UNITS TAB PO SCH (10:37)
[2018-01-24] MEDS: POTASSIUM CL 10 MEQ TAB PO SCH (10:37)
[2018-01-24] MEDS: Sevelamer Carbonate [Renvela] 800 MG PO SCH ×2 (11:36→18:00)
--- NOTE | 2018-01-24 15:25 | SOAPPROG ---
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 He was admitted with more CP and fatigue. . He is getting weaker despite being on chemo for last several months. Chronically elevated troponin is seen in cardiac amyloidosis. I do not think he has obstructive CAD and need repeat cath or PCI currently. He feels better with more aggressive fluid removal from his PD. I agree with using PO Roxanol for CP. PLAN: 1)no change in current dose of Toprol XL. 2)okay to discharge home from cardiology standpoint tomorrow. 3)has follow up appt with his residential area field manager Dr. Dwaine Chilel this Wednesday 4)agree with Palliative consult as overall poor prognosis 5)will sign off. Please call if need further cardiology assistance. 01/24/18 15:22 Subjective: no more CP but really has just walked out of door of hospital room. CARDOSO at 20ft. Objective: Vital Signs Temp Pulse Resp BP Pulse Ox 36.7 C 74 14 137/86 H 99 01/24/18 12:00 01/24/18 12:00 01/24/18 12:00 01/24/18 12:00 01/24/18 12:00 Microbiology 01/23/18 22:50 Respiratory Panel (PCR) - Final Nasal, Sinus - Anaerobic Tube/Swab No Organism Detected Laboratory Results 01/24/18 03:46 01/24/18 03:46 01/23/18 01/24/18 01/25/18 05:59 05:59 05:59 Intake Total 870 750 Balance 870 750 PT 13.6 SEC (12.0-15.0) 01/21/18 12:58 INR 1.02 (0.83-1.16) 01/21/18 12:58 Physical Exam - Physical Exam General Appearance: alert EENT: normal ENT inspection Neck: non-tender Respiratory: lungs clear Cardiac/Chest: regular rate, rhythm, JVD (JVP to 8cm.), systolic murmur, No gallop Peripheral Pulses: 2+: carotid (R), carotid (L), femoral (R), femoral (L), dorsalis-pedis (R), dorsalis-pedis (L) Abdomen: non-tender, No guarding, No rebound Skin: warm/dry Extremities: No pedal edema Neuro/Psych: alert ICD10 Worksheet Patient Problems: Problems Problem Status Onset Amyloidosis Acute Chest pain Acute Elevated troponin Acute Renal failure Acute Headache Active Congestive heart failure Acute Hyperkalemia Acute Syncope Acute
--- NOTE | 2018-01-24 15:29 | SOAPPROG ---
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 CP - appreciate cardiology agree this is likely non-coronary CP and attributed to amyloidosis of heart and diastolic dysfunction rec Toprol XL on D/C more aggressive management of fluid overload by was of PD w nephrology troponin elevation common in amyloidosis w heart involvement; no indication to repeat cath per cardiology 2. ESRD - PD per nephrology; appreciate recs 3. AL amyloid - progressive disease not on CyBorD s/p C4D5 today so far tolerating well except for CP episodes agree w trial of liquid morphine asked nurses to walk pt to al for CP plan for next dose of chemo later this week ok to d/c tomorrow from my standpoint will d/w Dr Quiñones 01/24/18 15:21 01/24/18 15:22 Subjective: Pt resting comfortably denies CP Objective: Vital Signs Temp Pulse Resp BP Pulse Ox 36.7 C 74 14 137/86 H 99 01/24/18 12:00 01/24/18 12:00 01/24/18 12:00 01/24/18 12:00 01/24/18 12:00 Microbiology 01/23/18 22:50 Respiratory Panel (PCR) - Final Nasal, Sinus - Anaerobic Tube/Swab No Organism Detected Laboratory Results 01/24/18 03:46 01/24/18 03:46 01/23/18 01/24/18 01/25/18 05:59 05:59 05:59 Intake Total 870 750 Balance 870 750 PT 13.6 SEC (12.0-15.0) 01/21/18 12:58 INR 1.02 (0.83-1.16) 01/21/18 12:58 Gen - NAD HEENT - bilateral cervical LAD, R>L CV - RRR Resp - clear anteriorly Abd - soft, BS+ Ext - no sig edema Neuro - nonfocal ICD10 Worksheet Patient Problems: Problems Problem Status Onset Amyloidosis Acute Chest pain Acute Elevated troponin Acute Renal failure Acute Headache Active Congestive heart failure Acute Hyperkalemia Acute Syncope Acute
--- NOTE | 2018-01-24 15:44 | ASMTCMCOM ---
CM Note CM Note Notes: 01/24/2018 Case Management Note Discussed pt during multi disciplinary rounds this morning. Discussed PT recommendations for discharge this afternoon with pt. PT is recommending SNF rehab. Pt states that is unable to provide high levels of support for 24 hour care due to pain in her hips. Pt wishes to discuss d/c plan with his . Left pt a list of local SNF rehab facilities for pt and to explore on Medicare.gov or to visit. Pt uncertain of need for SNF rehab at this time. Case Management will meet with pt tomorrow morning to discuss further. Case Management d/c poc: to be determined. SNF rehab vs home care with 24/7 support. Case Management to follow. Date Signed: 01/24/2018 03:44 PM Electronically Signed By:Michaela Beavers RN
--- NOTE | 2018-01-24 15:47 | SOAPPROG ---
SOAP Progress Note Assessment/Plan: Assessment/Plan: ESRD: on PD. - Will continue PD nightly. - Will change PD fluid to pull more fluid off tonight. Hypervolemia: likely from a combination of amyloidosis, hypoalbuminemia, and poor fluid removal on PD. - Will adjust PD fluids for more fluid removal tonight. - Will continue to monitor. Hypokalemia: pt on potassium supplementation, K 3.7, will continue to monitor. HTN: BP ok on current meds. Subjective: No acute events overnight. Pt feels that his swelling is improving but still has a lot of swelling. He only had 6cc of UF overnight. Objective: Vital Signs Temp Pulse Resp BP Pulse Ox 36.7 C 74 14 137/86 H 99 01/24/18 12:00 01/24/18 12:00 01/24/18 12:00 01/24/18 12:00 01/24/18 12:00 Microbiology 01/23/18 22:50 Respiratory Panel (PCR) - Final Nasal, Sinus - Anaerobic Tube/Swab No Organism Detected Laboratory Results 01/24/18 03:46 01/24/18 03:46 01/23/18 01/24/18 01/25/18 05:59 05:59 05:59 Intake Total 870 750 Balance 870 750 PT 13.6 SEC (12.0-15.0) 01/21/18 12:58 INR 1.02 (0.83-1.16) 01/21/18 12:58 General: alert and oriented, no acute distress Eyes: EOMI, PERRL OP: Clear CV: RRR Resp: nonlabored respirations on RA Abd: Soft, NT/ND Ext: +2 edema BLE Neuro: CN II-XII grossly intact, no asterixis Psych: cooperative, appropriate mood and affect ICD10 Worksheet Patient Problems: Problems Problem Status Onset Amyloidosis Acute Chest pain Acute Elevated troponin Acute Renal failure Acute Headache Active Congestive heart failure Acute Hyperkalemia Acute Syncope Acute
[2018-01-24] MEDS: ONDANSETRON DISINTEGRATING 4 MG TAB PO SCH (17:48)
--- NOTE | 2018-01-24 17:56 | HOSPPROG ---
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 Montero Above reviewed with Dr. Hossein Hunter today Also seen by me on multi disc rounds today SUBJECTIVE: Much nausea with any attempt to eat last night and so far today, no abdominal pain or vomiting so far, no fever, bowels okay Chest pain is quiet at this time has not had any for more than 24 hr now Still some dyspnea and a lot of edema though dyspnea is improving OBJECTIVE Vitals reviewed: Stable without fever Manager Cable, my review: Sinus Exam: alert oriented skin warm dry color ok resps not labored lungs diminished but otherwise clear BSs heart regular abd soft nondistended nontender, bowel sounds present limbs warm, still with marked pitting edema iv site ok Laboratory data: CBC with slight decrease in hemoglobin otherwise stable Metabolic panel with sodium at 1:34 a.m., creatinine at 10 though potassium is good Objective: Vital Signs Temp Pulse Resp BP Pulse Ox 36.7 C 74 14 137/86 H 99 01/24/18 12:00 01/24/18 12:00 01/24/18 12:00 01/24/18 12:00 01/24/18 12:00 Microbiology 01/23/18 22:50 Respiratory Panel (PCR) - Final Nasal, Sinus - Anaerobic Tube/Swab No Organism Detected Laboratory Results 01/24/18 03:46 01/24/18 03:46 01/23/18 01/24/18 01/25/18 06:59 06:59 06:59 Intake Total 870 750 Balance 870 750 PT 13.6 SEC (12.0-15.0) 01/21/18 12:58 INR 1.02 (0.83-1.16) 01/21/18 12:58 - Time Spent With Patient Time Spent with Patient: greater than 35 minutes Time Spent with Patient: Greater than 35 minutes spent on this patients care, greater than 50% of time spent counseling, educating, and coordinating care regarding the above mentioned plan. ICD10 Worksheet Patient Problems: Problems Problem Status Onset Amyloidosis Acute Chest pain Acute Elevated troponin Acute Renal failure Acute Headache Active Congestive heart failure Acute Hyperkalemia Acute Syncope Acute
[2018-01-24] MEDS: SENNOSIDES/DOCUSATE SODIUM TAB PO SCH (22:04)
[2018-01-24] MEDS: CARBOXYMETHYLCELLULOSE 0.5% 0.4 ML DROPERETTE EACHEYE PRN (22:44)
[2018-01-24] MEDS: GENTAMICIN 0.1% 15 GM OINT TP SCH (22:50)
[2018-01-25 04:48] LABS: PLATELET COUNT 156 10^3/uL (150-400)
[2018-01-25] MEDS: HEPARIN 5,000 UNIT/0.5 ML SYR SC SCH ×3 (06:01→20:23)
[2018-01-25] MEDS: SIMETHICONE 80 MG TAB CHEW PO SCH ×4 (08:00→22:10)
[2018-01-25] MEDS: GABAPENTIN 100 MG CAP PO SCH ×2 (08:00→20:23)
[2018-01-25] MEDS: CHOLECALCIFEROL VIT D3 1,000 UNITS TAB PO SCH (08:01)
[2018-01-25] MEDS: PANTOPRAZOLE SODIUM 40 MG TAB PO SCH (08:01)
[2018-01-25] MEDS: POTASSIUM CL 10 MEQ TAB PO SCH (08:01)
[2018-01-25] MEDS: METOPROLOL SUCCINATE XR 25 MG TAB PO SCH (08:01)
[2018-01-25] MEDS: SENNOSIDES/DOCUSATE SODIUM TAB PO SCH ×2 (08:01→22:10)
[2018-01-25] MEDS: ACYCLOVIR 200 MG CAP PO SCH (08:02)
[2018-01-25] MEDS: ONDANSETRON DISINTEGRATING 4 MG TAB PO SCH ×3 (08:02→17:48)
[2018-01-25] MEDS: FINASTERIDE 5 MG TAB PO SCH (08:02)
[2018-01-25] MEDS: Sevelamer Carbonate [Renvela] 800 MG PO SCH ×2 (08:03→17:47)
--- NOTE | 2018-01-25 11:52 | SOAPPROG ---
SOAP Progress Note Assessment/Plan: Assessment/Plan: ESRD: on PD. - Will continue PD nightly. Hypervolemia: likely from a combination of amyloidosis, hypoalbuminemia, and poor fluid removal on PD. - Will continue to use a mix of 2.5% and 4.25% to keep pulling more fluid off. - Will continue to monitor. Hypokalemia: pt on potassium supplementation, K 3.8, will continue to monitor. HTN: BP ok on current meds. Subjective: No acute events overnight. Pt had PD overnight and had a total of 1192ml UF. Pt states he is feeling ok, no pain, still has swelling in legs, no dyspnea. Objective: Vital Signs Temp Pulse Resp BP Pulse Ox 36.7 C 80 16 108/68 94 01/25/18 11:40 01/25/18 11:40 01/25/18 11:40 01/25/18 11:40 01/25/18 11:40 Microbiology 01/23/18 22:50 Respiratory Panel (PCR) - Final Nasal, Sinus - Anaerobic Tube/Swab No Organism Detected Laboratory Results 01/25/18 04:10 01/25/18 04:15 01/24/18 01/25/18 01/26/18 05:59 05:59 05:59 Intake Total 750 350 Balance 750 350 PT 13.6 SEC (12.0-15.0) 01/21/18 12:58 INR 1.02 (0.83-1.16) 01/21/18 12:58 General: alert and oriented, no acute distress Eyes: EOMI, PERRL OP: Clear CV: RRR Resp: nonlabored respirations on RA Abd: Soft, NT/ND Ext: +1 edema BLE Neuro: CN II-XII grossly intact, no asterixis Psych; cooperative, appropriate mood and affect ICD10 Worksheet Patient Problems: Problems Problem Status Onset Amyloidosis Acute Chest pain Acute Elevated troponin Acute Renal failure Acute Headache Active Congestive heart failure Acute Hyperkalemia Acute Syncope Acute
--- NOTE | 2018-01-25 13:03 | HOSPPROG ---
Hospitalist Progress Note Assessment/Plan: DIAGNOSES: -recurrent episodes of ongoing chest pain syndrome, due to his amyloid disease; no suspicion for coronary disease at this time * Has not responded well to most medications so far * Will give a trial of Roxanol at this point which may work better than oral tablets for him given his underlying disease issues(has not yet had an episode of pain here to try the Roxanol) -volume overload related to his amyloid renal disease and inadequate removal with peritoneal dialysis * Will need to continue daily dialysis here for volume removal but is making progress far -nausea with eating meals today * Notably better with scheduled pre meal antiemetic so far, may be able to stop this over the next day or toe -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 Montero -weakness and gait instability, deconditioning, multifactorial * This seem somewhat improved today but needs ongoing management and treatment I reviewed all the above in detail today with Dr. Nohelia Montero and Dr. Sofie Ho. Also seen by me on multi disc rounds today PLANS: -continue dialysis and fluid removal here -continue physical occupational therapy -trial of Roxanol for pain when his pains occur -trial of increasing gabapentin for his neuropathy symptoms -likely chemotherapy in 2-3 days, waiting for Oncology to determine final schedule -palliative care consultation today Based on his gait instability our plan has been to start looking for will kind of discharge options we have in terms of getting him all that support he needs. It is possible that his gait instability will continue to improve any may be able to go home but he is not safe for that at this time. SNF is not currently an option due to his chemotherapy and dialysis needs. In speaking with him he gets a lot worse after each chemotherapy dose. It may be worthwhile to do his chemotherapy dose here and follow his symptoms and disabilities closely to see how much support and what kind of medication we need to get him through those episodes without needing to come into the hospital repeatedly. We may be able to thereafter make a more concrete plan for care that will be available to him at home and keep him from needing hospitalizations. We also engaged our palliative care team today to review his care goals and see how that fits in with discharge planning at this time. SUBJECTIVE: Has not had any recurrent pain episodes today so has not tried Roxanol yet Nausea notably much better and is eating better today Has not not been up to ambulate yet but feels a bit more energetic so far today OBJECTIVE Vitals reviewed: Stable without fever Rejogger, my review: Sinus Exam: alert oriented skin warm dry color ok resps not labored lungs diminished but otherwise clear BSs heart regular abd soft nondistended nontender, bowel sounds present limbs warm, still with marked pitting edema iv site ok Laboratory data: CBC and Chem panel stable with numbers and expected range for his renal disease and amyloidosis Objective: Vital Signs Temp Pulse Resp BP Pulse Ox 36.7 C 80 16 108/68 94 01/25/18 11:40 01/25/18 11:40 01/25/18 11:40 01/25/18 11:40 01/25/18 11:40 Microbiology 01/23/18 22:50 Respiratory Panel (PCR) - Final Nasal, Sinus - Anaerobic Tube/Swab No Organism Detected Laboratory Results 01/25/18 04:10 01/25/18 04:15 01/24/18 01/25/18 01/26/18 06:59 06:59 06:59 Intake Total 750 350 Balance 750 350 PT 13.6 SEC (12.0-15.0) 01/21/18 12:58 INR 1.02 (0.83-1.16) 01/21/18 12:58 - Time Spent With Patient Time Spent with Patient: greater than 35 minutes Time Spent with Patient: Greater than 35 minutes spent on this patients care, greater than 50% of time spent counseling, educating, and coordinating care regarding the above mentioned plan. ICD10 Worksheet Patient Problems: Problems Problem Status Onset Amyloidosis Acute Chest pain Acute Elevated troponin Acute Renal failure Acute Headache Active Congestive heart failure Acute Hyperkalemia Acute Syncope Acute
[2018-01-25] MEDS: CARBOXYMETHYLCELLULOSE 0.5% 0.4 ML DROPERETTE EACHEYE PRN ×2 (13:17→19:17)
--- NOTE | 2018-01-25 16:37 | ASMTCMCOM ---
CM Note CM Note Notes: 01/25/2018 Case Management Note Met w/pt and Stephen from Palliative Team. Please see palliative note for details. Investigated SNF requirements for oral chemo and Peritoneal Dialysis. [facility] can accept pt if he is part of the [facility] system. [facility] is the facility if he is followed by [facility]. Pt will be expected to bring all supplies for dialysis as well as his oral chemo agent. PT worked with pt and is recommending home with home care. Pt has expressed that he does not want to burden his and that her hips "are bad". He does have an adult son who lives with him. [facility] has accepted pt for service. There is a follow up palliative meeting with pt and tomorrow morning. Case Management d/c poc: to be determined pending outcome of palliative meeting on Wednesday. Case Management to follow. Date Signed: 01/25/2018 04:36 PM Electronically Signed By:Michaela Beavers RN
[2018-01-25] MEDS: GENTAMICIN 0.1% 15 GM OINT TP SCH (22:01)
[2018-01-26] MEDS: CARBOXYMETHYLCELLULOSE 0.5% 0.4 ML DROPERETTE EACHEYE PRN ×3 (03:32→18:40)
[2018-01-26] MEDS: HEPARIN 5,000 UNIT/0.5 ML SYR SC SCH ×3 (05:50→20:35)
--- NOTE | 2018-01-26 10:24 | SOAPPROG ---
SOAP Progress Note Assessment/Plan: Assessment/Plan: 72 yo man w AL amyloid w cardiac and presumed renal involvement who p/w CP s/p C4D6 chemotherapy 1. CP - appreciate cardiology agree this is likely non-coronary CP and attributed to amyloidosis of heart and diastolic dysfunction rec Toprol XL on D/C more aggressive management of fluid overload w PD per nephrology troponin elevation common in amyloidosis w heart involvement; no indication to repeat cath per cardiology 2. ESRD - PD per nephrology; appreciate recs 3. AL amyloid - progressive disease not on CyBorD s/p C4D6 today so far tolerating well except for CP episodes agree w trial of liquid morphine asked nurses to walk pt to [facility] for CP can give next dose of CyBorD in hospital tomorrow or Wednesday01/26/18 10:21 Subjective: Pt not seen personally as meeting w palliative care Objective: Vital Signs Temp Pulse Resp BP Pulse Ox 36.6 C 73 15 115/68 99 01/26/18 08:00 01/26/18 08:00 01/26/18 08:00 01/26/18 08:00 01/26/18 08:00 Laboratory Results 01/25/18 04:10 01/26/18 03:34 01/25/18 01/26/18 01/27/18 05:59 05:59 05:59 Intake Total 350 640 100 Balance 350 640 100 PT 13.6 SEC (12.0-15.0) 01/21/18 12:58 INR 1.02 (0.83-1.16) 01/21/18 12:58 Vitals reviewed ICD10 Worksheet Patient Problems: Problems Problem Status Onset Amyloidosis Acute Chest pain Acute Elevated troponin Acute Renal failure Acute Headache Active Congestive heart failure Acute Hyperkalemia Acute Syncope Acute
[2018-01-26] MEDS: FINASTERIDE 5 MG TAB PO SCH (10:49)
[2018-01-26] MEDS: CALCITRIOL 0.25 MCG CAP PO SCH (10:49)
[2018-01-26] MEDS: SENNOSIDES/DOCUSATE SODIUM TAB PO SCH ×2 (10:49→22:23)
[2018-01-26] MEDS: METOPROLOL SUCCINATE XR 25 MG TAB PO SCH (10:50)
[2018-01-26] MEDS: SIMETHICONE 80 MG TAB CHEW PO SCH ×4 (10:50→22:23)
[2018-01-26] MEDS: PANTOPRAZOLE SODIUM 40 MG TAB PO SCH (10:50)
[2018-01-26] MEDS: CHOLECALCIFEROL VIT D3 1,000 UNITS TAB PO SCH (10:50)
[2018-01-26] MEDS: ONDANSETRON DISINTEGRATING 4 MG TAB PO SCH ×3 (10:50→18:40)
[2018-01-26] MEDS: GABAPENTIN 100 MG CAP PO SCH ×2 (10:50→20:35)
[2018-01-26] MEDS: ACYCLOVIR 200 MG CAP PO SCH (10:50)
[2018-01-26] MEDS: Sevelamer Carbonate [Renvela] 800 MG PO SCH ×2 (10:51→18:40)
[2018-01-26] MEDS: POTASSIUM CL 10 MEQ TAB PO SCH (10:51)
[2018-01-26] MEDS: LORazepam 0.5 MG TAB PO PRN (11:39)
[2018-01-26] MEDS: morphINE 10 MG/0.5 ML UDSYR PO PRN (12:08)
--- NOTE | 2018-01-26 13:58 | HOSPPROG ---
Hospitalist Progress Note Assessment/Plan: DIAGNOSES: -recurrent episodes of ongoing chest pain syndrome, due to amyloidosis; no suspicion for coronary disease at this time * Has not responded well to most medications so far including oral narcotics, nonsteroidals, muscle relaxers, tramadol * Has now had 1st trial of a dose of Roxanol for an episode today which seemed to be effective -amyloid disease of heart and kidneys, with failure of both * Ongoing weekly chemotherapy * He is having quite a bit of trouble so far tolerating the symptoms in the 48 hr after his chemotherapy and has now had repeated presentations to the ER in and some hospital admissions; these symptoms are primarily the pain episodes as mentioned above which are notably more common and severe after the chemo treatments, as well as nausea -volume overload related to his amyloid renal disease and inadequate removal with peritoneal dialysis * Will need to continue daily dialysis here for volume removal but is approaching euvolemic at this time -nausea, likely chemotherapy related * Notably better with scheduled pre meal antiemetic so far, at this point can probably change to p.r.n. 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 How ever the patient's post chemotherapy symptoms have been so bad each week that he has had frequent presentations to hospital in the ER for management, and he does not feel confident that we will have a handle on managing these symptoms yet. I talked with him at length and it would seem reasonable to have him get his next dose of chemotherapy here tomorrow and monitor his symptoms over the next day or 2 to make sure that we are able to control the pain and nausea. At this point Roxanol and Zofran would be the primary medicines, with IV back up as needed to see how much medicine it takes to get him through these episodes I reviewed all the above in detail today with Dr. Nohelia Montero today and she is agreeing to have him get his chemotherapy here tomorrow which she is arranging for us. Also seen by me on multi disc rounds today PLANS: -next dose of chemotherapy for emboli disease here tomorrow, follow closely over the next 24-48 hr for titration of management of the nausea and pain that have been occurring after his treatments -continue with Roxanol therapeutic for his pain episodes, but titrate dose of this and additional medicines as needed for the main -titration of antiemetic as needed for his nausea after chemotherapy -trial of increasing gabapentin for his neuropathy symptoms -continue peritoneal dialysis here with ongoing fluid removal -ongoing palliative care consultation -continue physical occupational therapy. -at this point he is improving with his strength and ambulation well enough that I think once we get the next chemotherapy dose and management of side effects he can go directly home with home care as opposed to going to SNF SUBJECTIVE: The patient had a recurrent pain episode today typical of his chest pain episodes at home due to amyloid. He did get a dose of Roxanol which was his 1st attempted treated with Roxanol, and this seemed to work fairly well. He did also have some nausea today and needed nausea medicine. That was also effective for treating this symptom at the time. He did better with walking today, still appears to need physical therapy but is making good progress OBJECTIVE Vitals reviewed: Stable without fever Bacteriologist Medical, my review: Sinus Exam: alert oriented During my 1st visit with the patient he was in obvious severe agonizing pain and writhing; during my subsequent visit after he received Roxanol the patient was much more relaxed, still with a little pain but much more comfortable skin warm dry color ok resps not labored lungs diminished but otherwise clear BSs heart regular abd soft nondistended nontender, bowel sounds present limbs warm, still with marked pitting edema iv site ok Laboratory data: Chem panel stable Objective: Vital Signs Temp Pulse Resp BP Pulse Ox 36.2 C 79 10 L 119/72 95 01/26/18 11:31 01/26/18 11:31 01/26/18 11:31 01/26/18 11:31 01/26/18 11:31 Laboratory Results 01/25/18 04:10 01/26/18 03:34 01/25/18 01/26/18 01/27/18 06:59 06:59 06:59 Intake Total 350 740 Balance 350 740 PT 13.6 SEC (12.0-15.0) 01/21/18 12:58 INR 1.02 (0.83-1.16) 01/21/18 12:58 - Time Spent With Patient Time Spent with Patient: greater than 35 minutes Time Spent with Patient: Greater than 35 minutes spent on this patients care, greater than 50% of time spent counseling, educating, and coordinating care regarding the above mentioned plan. ICD10 Worksheet Patient Problems: Problems Problem Status Onset Amyloidosis Acute Chest pain Acute Elevated troponin Acute Renal failure Acute Headache Active Congestive heart failure Acute Hyperkalemia Acute Syncope Acute
--- NOTE | 2018-01-26 17:04 | ASMTCMCOM ---
CM Note CM Note Notes: 01/26/2018 Case Management Note Attended palliative meeting with Stephen and pt Shukri. [facility] visited with case management and has referral from [facility] to see patient. [facility] to contact Stephen tomorrow to coordinate care. Please see palliative note for details. Case Management is uanble to find a SNF able to do Peritoneal dialysis. Home d/c is challenging d/t level of care pt is requiring currently. Pain control is also an issue that is difficult to manage in the home setting. Case Management d/c poc: to be determined pending outcome of further palliative conversations. Case Management to follow. Date Signed: 01/26/2018 05:04 PM Electronically Signed By:Michaela Beavers RN
--- NOTE | 2018-01-26 17:27 | SOAPPROG ---
SOAP Progress Note Assessment/Plan: Assessment: 1. Chest pains. Possible due to volume overload. Improving with UF. 2. Volume overload. Has lost muscle weight. DW no longer 195lbs, likely 10-15 lbs below this. 3. ESRD. Continue PD with cycler at night. Use mix of 2 bags 2.5%, 1 bag 4.25% dialysate. Had 2.6 L UF last night. 4. Malnutrition. Change to regular diet. 5. Anemia. Hgb stable but low at 8.6. Give procrit. Plan: 01/26/18 17:27 01/26/18 17:31 Subjective: Feels like swelling better. Lost 6 lbs over night with dialysis. No more than usual dizziness today. Had one small chest pain but overall improving. Wants more protein. Objective: Vital Signs Temp Pulse Resp BP Pulse Ox 36.9 C 83 16 122/76 H 98 01/26/18 16:00 01/26/18 16:00 01/26/18 16:00 01/26/18 16:00 01/26/18 16:00 Laboratory Results 01/25/18 04:10 01/26/18 03:34 01/25/18 01/26/18 01/27/18 05:59 05:59 05:59 Intake Total 350 640 490 Balance 350 640 490 PT 13.6 SEC (12.0-15.0) 01/21/18 12:58 INR 1.02 (0.83-1.16) 01/21/18 12:58 Slightly weak appearing, in bed RRR, II/ sys murmur at RSB, JVD 7cm Bibasilar crackles 2+ presacral/sacral/ankle edema ICD10 Worksheet Patient Problems: Problems Problem Status Onset Headache Active Renal failure Acute Hyperkalemia Acute Chest pain Acute Syncope Acute Congestive heart failure Acute Amyloidosis Acute Elevated troponin Acute
[2018-01-26] MEDS: GENTAMICIN 0.1% 15 GM OINT TP SCH (21:00)
[2018-01-27] MEDS: CARBOXYMETHYLCELLULOSE 0.5% 0.4 ML DROPERETTE EACHEYE PRN (01:14)
[2018-01-27] MEDS: HEPARIN 5,000 UNIT/0.5 ML SYR SC SCH ×3 (06:21→21:31)
[2018-01-27] MEDS: GABAPENTIN 100 MG CAP PO SCH ×2 (09:28→21:27)
[2018-01-27] MEDS: SIMETHICONE 80 MG TAB CHEW PO SCH ×4 (09:29→21:27)
[2018-01-27] MEDS: FINASTERIDE 5 MG TAB PO SCH (09:29)
[2018-01-27] MEDS: ONDANSETRON DISINTEGRATING 4 MG TAB PO SCH ×3 (09:29→18:23)
[2018-01-27] MEDS: ACYCLOVIR 200 MG CAP PO SCH (09:30)
[2018-01-27] MEDS: CHOLECALCIFEROL VIT D3 1,000 UNITS TAB PO SCH (09:30)
[2018-01-27] MEDS: POTASSIUM CL 10 MEQ TAB PO SCH (09:30)
[2018-01-27] MEDS: PANTOPRAZOLE SODIUM 40 MG TAB PO SCH (09:30)
[2018-01-27] MEDS: Sevelamer Carbonate [Renvela] 800 MG PO SCH ×2 (09:31→18:23)
[2018-01-27] MEDS: SENNOSIDES/DOCUSATE SODIUM TAB PO SCH ×2 (09:31→21:27)
[2018-01-27] MEDS: METOPROLOL SUCCINATE XR 25 MG TAB PO SCH (09:40)
[2018-01-27] MEDS ORDERED: ONDANSETRON DISINTEGRATING 4 MG TAB PO SCH (11:30)
[2018-01-27] MEDS ORDERED: BORTEZOMIB SC SCH (12:00)
[2018-01-27] MEDS ORDERED: CYCLOPHOSPHAMIDE 25 MG PO SCH (12:00)
[2018-01-27] MEDS ORDERED: CYCLOPHOSPHAMIDE 50 MG CAP PO SCH ×2 (12:00)
[2018-01-27] MEDS ORDERED: DEXAMETHASONE 4 MG TAB PO SCH (12:00)
--- NOTE | 2018-01-27 13:19 | SOAPPROG ---
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 CP - appreciate cardiology agree this is likely non-coronary CP and attributed to amyloidosis of heart and diastolic dysfunction rec Toprol XL on D/C more aggressive management of fluid overload w PD per nephrology troponin elevation common in amyloidosis w heart involvement; no indication to repeat cath per cardiology 2. ESRD - PD per nephrology; appreciate recs 3. AL amyloid - progressive disease not on CyBorD C4D8 CyBorD today so far tolerating well except for CP episodes agree w trial of liquid morphine which he seems to respond to 4. Dispo - ongoing palliative care discussion Dr Quiñones has recommended hospice 01/26/18 10:21 01/27/18 13:17 Subjective: Acute CP yesterday responded to raxanol Objective: Vital Signs Temp Pulse Resp BP Pulse Ox 36.7 C 79 16 91/50 L 98 01/27/18 11:22 01/27/18 11:22 01/27/18 11:22 01/27/18 11:22 01/27/18 11:22 Laboratory Results 01/25/18 04:10 01/27/18 03:30 01/26/18 01/27/18 01/28/18 05:59 05:59 05:59 Intake Total 640 1190 Balance 640 1190 PT 13.6 SEC (12.0-15.0) 01/21/18 12:58 INR 1.02 (0.83-1.16) 01/21/18 12:58 Gen - sitting in chair, NAD CV - RRR, systolic murmur noted Resp - clear anteriorly Ext - no sig edema ICD10 Worksheet Patient Problems: Problems Problem Status Onset Amyloidosis Acute Chest pain Acute Elevated troponin Acute Renal failure Acute Headache Active Congestive heart failure Acute Hyperkalemia Acute Syncope Acute
--- NOTE | 2018-01-27 14:48 | SOAPPROG ---
SOAP Progress Note Assessment/Plan: Assessment: 1. Chest pains. Possible due to volume overload/chemotherapy. 2. Volume overload. Has lost muscle weight. DW no longer 195lbs, likely 10-15 lbs below this. 3. ESRD. Continue PD with cycler at night. Use mix of 2 bags 2.5%, 1 bag 4.25% dialysate. 4. Malnutrition. Changed to regular diet. 5. Anemia. Hgb stable but low at 8.6 2 days ago. Give procrit. Plan: 01/26/18 17:27 01/26/18 17:31 01/27/18 14:46 01/27/18 14:48 Subjective: No complaints. PD went well last night. Having regular BMs. Objective: Vital Signs Temp Pulse Resp BP Pulse Ox 36.7 C 79 16 91/50 L 98 01/27/18 11:22 01/27/18 11:22 01/27/18 11:22 01/27/18 11:22 01/27/18 11:22 Laboratory Results 01/25/18 04:10 01/27/18 03:30 01/26/18 01/27/18 01/28/18 05:59 05:59 05:59 Intake Total 640 1190 Balance 640 1190 PT 13.6 SEC (12.0-15.0) 01/21/18 12:58 INR 1.02 (0.83-1.16) 01/21/18 12:58 Comfortable, in chair, NAD RRR, II/ sys murmur at RSB, JVD 5-7 cm Coarse R sided crackles that clear with deep breathings Abdom soft, nontender 1+ LE edema with wrinkles seen ICD10 Worksheet Patient Problems: Problems Problem Status Onset Headache Active Renal failure Acute Hyperkalemia Acute Chest pain Acute Syncope Acute Congestive heart failure Acute Amyloidosis Acute Elevated troponin Acute
[2018-01-27] MEDS: morphINE 10 MG/0.5 ML UDSYR PO PRN (16:06)
--- NOTE | 2018-01-27 16:42 | ASMTCMCOM ---
CM Note CM Note Notes: Pts case discussed in morning rounds. Pt will d/c with [facility] once medically stable to d/c. Pt had a round of chemo medications today. CM discussed case w/ Stephen. CM to follow. Plan: [facility] at home Date Signed: 01/27/2018 04:41 PM Electronically Signed By:BRANDIE Crabtree
--- NOTE | 2018-01-27 17:17 | HOSPPROG ---
Hospitalist Progress Note Assessment/Plan: Assessment: 72-year-old male presents with acute chest pain secondary to muscle breakdown in the setting of amyloidosis and active treatment with chemotherapy Plan: 1. Chest pain. Acute, secondary to muscle breakdown occurring from chemotherapy treating cardiac amyloidosis -discussed with patient and daughter, my recommendation is for supportive management and the patient is responding best Roxanol, dose range written -no indication for ongoing ischemic cardiac workup -given that the patient's symptoms consistently occur following chemotherapy, and patient is receiving chemotherapy today, we will carefully monitor for symptoms, treat appropriately with Roxanol, and up titrate as needed for symptom management 2. Amyloidosis. 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 3. End-stage renal disease. Ongoing peritoneal dialysis, team rounded with Dr. Flo Vega from Nephrology, continue current care 4. Pancytopenia. Secondary to a combination of chemotherapy as well as amyloidosis and end-stage renal disease -continue monitor, no indication for transfusion at this time 5. Chronic diastolic congestive heart failure. No evidence of acute exacerbation Diet. Renal Prophylaxis. High risk patient, heparin subcu Code. Full at present, will continue to readdress Disposition. Anticipated discharge 01/28, pending stabilization of pain symptoms above. Subjective: Patient reports that he is currently chest pain-free, he does daughter have questions regarding the difference between hospice and palliative care Objective: Vital Signs Temp Pulse Resp BP Pulse Ox 36.7 C 79 16 91/50 L 98 01/27/18 11:22 01/27/18 11:22 01/27/18 11:22 01/27/18 11:22 01/27/18 11:22 Laboratory Results 01/25/18 04:10 01/27/18 03:30 01/26/18 01/27/18 01/28/18 05:59 05:59 05:59 Intake Total 640 1190 1220 Balance 640 1190 1220 PT 13.6 SEC (12.0-15.0) 01/21/18 12:58 INR 1.02 (0.83-1.16) 01/21/18 12:58 - Time Spent With Patient Time Spent with Patient: greater than 35 minutes Time Spent with Patient: Greater than 35 minutes spent on this patients care, greater than 50% of time spent counseling, educating, and coordinating care regarding the above mentioned plan. - Physical Exam Constitutional: no apparent distress, not in pain, chronically ill appearing, No uncomfortable Cardiovascular: systolic murmur (106 at the sternum and apex), edema (Minimal bilateral lower extremities), No irregularly irregular, No tachycardia Respiratory: no respiratory distress, no rales or rhonchi, clear to auscultation Gastrointestinal: distension (Mild with peritoneal dialysis catheter) Neurologic: AAOx3 Psychiatric: interacting appropriately, not anxious, not encephalopathic, thought process linear ICD10 Worksheet Patient Problems: Problems Problem Status Onset Amyloidosis Acute Chest pain Acute Elevated troponin Acute Renal failure Acute Headache Active Congestive heart failure Acute Hyperkalemia Acute Syncope Acute
[2018-01-27] MEDS: GENTAMICIN 0.1% 15 GM OINT TP SCH (21:30)
[2018-01-28 04:38] LABS: PLATELET COUNT 153 10^3/uL (150-400)
[2018-01-28] MEDS: HEPARIN 5,000 UNIT/0.5 ML SYR SC SCH ×2 (06:09→14:26)
[2018-01-28] MEDS: ONDANSETRON DISINTEGRATING 4 MG TAB PO SCH ×3 (08:50→18:31)
[2018-01-28] MEDS: METOPROLOL SUCCINATE XR 25 MG TAB PO SCH (10:08)
[2018-01-28] MEDS: FINASTERIDE 5 MG TAB PO SCH (10:08)
[2018-01-28] MEDS: GABAPENTIN 100 MG CAP PO SCH ×2 (10:08→20:57)
[2018-01-28] MEDS: CHOLECALCIFEROL VIT D3 1,000 UNITS TAB PO SCH (10:08)
[2018-01-28] MEDS: CALCITRIOL 0.25 MCG CAP PO SCH (10:09)
[2018-01-28] MEDS: LORazepam 0.5 MG TAB PO PRN (10:26)
[2018-01-28] MEDS: Sevelamer Carbonate [Renvela] 800 MG PO SCH ×3 (10:27→18:29)
[2018-01-28] MEDS: morphINE 10 MG/0.5 ML UDSYR PO PRN ×4 (10:30→14:32)
[2018-01-28] MEDS: SIMETHICONE 80 MG TAB CHEW PO SCH ×4 (11:07→20:57)
[2018-01-28] MEDS: ACYCLOVIR 200 MG CAP PO SCH (11:32)
[2018-01-28] MEDS: POTASSIUM CL 10 MEQ TAB PO SCH (11:33)
[2018-01-28] MEDS: PANTOPRAZOLE SODIUM 40 MG TAB PO SCH (11:33)
[2018-01-28] MEDS: SENNOSIDES/DOCUSATE SODIUM TAB PO SCH ×2 (11:34→20:57)
--- NOTE | 2018-01-28 14:26 | ASMTCMCOM ---
CM Note CM Note Notes: Pts case discussed in tx rounds. Evi from [facility] met w/ pt today to coordinate d/c. Tentative d/c for tomorrow. Our RN will need to call report to [facility]. Pts family would prefer to bring pt home. Evi set up DME to be delivered to pts home between 8AM-12PM. [facility] is requesting that pt discharges w/ physical prescriptions in hand. CM to follow. Plan: Home w/ [facility] Date Signed: 01/28/2018 02:25 PM Electronically Signed By:BRANDIE Crabtree
[2018-01-28] MEDS ORDERED: EPOETIN ALFA 10,000 UNIT/ML VIAL SC SCH (15:00)
--- NOTE | 2018-01-28 16:15 | SOAPPROG ---
SOAP Progress Note Assessment/Plan: Assessment: 1. Chest pains. Temporally related to chemotherapy. Occurred despite better control of volume. 2. Volume overload. Seems less concerning given more clear association of chest pain with chemotherapy. Should target whatever weight he leaves at tomorrow. Call home PD nurse on Wednesday. Discussed fluid management strategy on dialysis at home. 3. ESRD. Continue PD with cycler at night. Only 900cc UF last night. Use mix of 2 bags 2.5%, 1 bag 4.25% dialysate again tonight. 4. Malnutrition. Changed to regular diet. 5. Anemia. Hgb 10. S/p procrit. Plan: 01/26/18 17:27 01/26/18 17:31 01/27/18 14:46 01/27/18 14:48 01/28/18 16:15 01/28/18 16:16 01/28/18 16:18 Subjective: Had more chest pains today post chemo therapy. He and Dr. Quiñones have decided to stop chemotherapy. He will go home tomorrow. Objective: Vital Signs Temp Pulse Resp BP Pulse Ox 36.3 C 93 12 126/77 H 99 01/28/18 12:00 01/28/18 12:00 01/28/18 12:00 01/28/18 12:00 01/28/18 12:00 Microbiology 01/23/18 14:22 Blood Culture - Final Blood 01/23/18 14:12 Blood Culture - Final Blood Laboratory Results 01/28/18 03:31 01/28/18 03:31 01/27/18 01/28/18 01/29/18 05:59 05:59 05:59 Intake Total 1190 1570 850 Output Total 949 Balance 1190 1570 -99 PT 13.6 SEC (12.0-15.0) 01/21/18 12:58 INR 1.02 (0.83-1.16) 01/21/18 12:58 Comfortable RRR, no m/g/r CTAB Abdom soft and nontender 1+ pitting in legs ICD10 Worksheet Patient Problems: Problems Problem Status Onset Headache Active Renal failure Acute Hyperkalemia Acute Chest pain Acute Syncope Acute Congestive heart failure Acute Amyloidosis Acute Elevated troponin Acute
[2018-01-28] MEDS: GENTAMICIN 0.1% 15 GM OINT TP SCH (18:30)
--- NOTE | 2018-01-28 22:40 | HOSPPROG ---
Hospitalist Progress Note Assessment/Plan: Assessment: 72-year-old male presents with acute chest pain secondary to muscle breakdown in the setting of amyloidosis and active treatment with chemotherapy Plan: 1. Chest pain. Acute, secondary to muscle breakdown occurring from chemotherapy treating cardiac amyloidosis -patient w/ severe, ongoing pain this AM, requiring up to 20mg PO roxanol -counseled patient that pain mgmt is top priority, given his palliative goals of care, and we will uptitrate roxanol as needed (he reports this is the most effective Rx for his symptoms) and have IV dilaudid PRN breakthrough -patient elected to adjust his goals to home w/ hospice, and comfort measures order placed 2. Amyloidosis. 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 End-stage renal disease. Ongoing peritoneal dialysis, settings adjusted by Dr. Vega, ongoing weights / removal on a palliative basis 4. Pancytopenia. Secondary to a combination of chemotherapy as well as amyloidosis and end-stage renal disease 5. Chronic diastolic congestive heart failure. No evidence of acute exacerbation Diet. Renal Prophylaxis. High risk patient, heparin subcu Code. Full at present, will continue to readdress Disposition. Anticipated discharge 01/29, home w/ hospice Subjective: severe pain in teeth, face, chest Objective: Vital Signs Temp Pulse Resp BP Pulse Ox 36.4 C 77 16 120/79 92 01/28/18 20:28 01/28/18 20:28 01/28/18 20:28 01/28/18 20:28 01/28/18 20:28 Microbiology 01/23/18 14:22 Blood Culture - Final Blood 01/23/18 14:12 Blood Culture - Final Blood Laboratory Results 01/28/18 03:31 01/28/18 03:31 01/27/18 01/28/18 01/29/18 05:59 05:59 05:59 Intake Total 1190 1570 850 Output Total 949 Balance 1190 1570 -99 PT 13.6 SEC (12.0-15.0) 01/21/18 12:58 INR 1.02 (0.83-1.16) 01/21/18 12:58 - Time Spent With Patient Time Spent with Patient: greater than 35 minutes Time Spent with Patient: Greater than 35 minutes spent on this patients care, greater than 50% of time spent counseling, educating, and coordinating care regarding the above mentioned plan. - Pending Discharge Pending Discharge Within 24 Hours: Yes Pending Discharge Date: 01/29/18 Pending Discharge Time: 11:00 - Physical Exam Constitutional: chronically ill appearing, uncomfortable, No not in pain (severe ) Ears, Nose, Mouth, Throat: hard of hearing Cardiovascular: systolic murmur (II/ at sternum/apex), edema Respiratory: no respiratory distress, no rales or rhonchi, clear to auscultation Gastrointestinal: normoactive bowel sounds, soft, non-tender abdomen, no palpable masses Psychiatric: not encephalopathic, thought process linear, other (fatigued) ICD10 Worksheet Patient Problems: Problems Problem Status Onset Headache Active Renal failure Acute Hyperkalemia Acute Chest pain Acute Syncope Acute Congestive heart failure Acute Amyloidosis Acute Elevated troponin Acute
[2018-01-29] MEDS: ACETAMINOPHEN 325 MG TAB PO PRN (03:46)
--- NOTE | 2018-01-29 08:35 | HOSPPROG ---
Hospitalist Progress Note Objective: Vital Signs Temp Pulse Resp BP Pulse Ox 36.6 C 80 16 118/63 97 01/29/18 04:30 01/29/18 08:20 01/29/18 04:30 01/29/18 08:20 01/29/18 08:20 Microbiology 01/23/18 14:22 Blood Culture - Final Blood 01/23/18 14:12 Blood Culture - Final Blood Laboratory Results 01/28/18 03:31 01/28/18 03:31 01/28/18 01/29/18 01/30/18 05:59 05:59 05:59 Intake Total 1570 1200 Output Total 949 1852 Balance 1570 251 -1852 PT 13.6 SEC (12.0-15.0) 01/21/18 12:58 INR 1.02 (0.83-1.16) 01/21/18 12:58 ICD10 Worksheet Patient Problems: Problems Problem Status Onset Amyloidosis Acute Chest pain Acute Elevated troponin Acute Renal failure Acute Headache Active Congestive heart failure Acute Hyperkalemia Acute Syncope Acute
--- NOTE | 2018-01-29 08:54 | HOSPPROG ---
Hospitalist Progress Note Assessment/Plan: #Chest pain: related to chemo. Normal cath 2017. Cont comfort measures. #Bradycardia: was in resp distress this morning. Normalized. Stop BB #Amyloidosis: cardiac involvement. Too many side effects for chemo #ESRD: cont PD per renal for volume management #Acute hypoxic resp failure: due to volume overload. Cont PD for comfort #Goals: discussed goals with patient this morning since still full code. Explained that CPR and other heroic measures will likely cause more pain and suffering and not aligned with his goals for comfort. He has changed to DNR status #DC today home with family and hospice I discussed change in Cor status and DC plan with his son, Robin over the phone Subjective: code blue called for syncopal episode and bradycardia to 30s Objective: Vital Signs Temp Pulse Resp BP Pulse Ox 36.6 C 80 16 118/63 97 01/29/18 04:30 01/29/18 08:20 01/29/18 04:30 01/29/18 08:20 01/29/18 08:20 Microbiology 01/23/18 14:22 Blood Culture - Final Blood 01/23/18 14:12 Blood Culture - Final Blood Laboratory Results 01/28/18 03:31 01/28/18 03:31 01/28/18 01/29/18 01/30/18 05:59 05:59 05:59 Intake Total 1570 1200 Output Total 949 1852 Balance 1570 251 -1852 PT 13.6 SEC (12.0-15.0) 01/21/18 12:58 INR 1.02 (0.83-1.16) 01/21/18 12:58 - Time Spent With Patient Time Spent with Patient: greater than 35 minutes Time Spent with Patient: Greater than 35 minutes spent on this patients care, greater than 50% of time spent counseling, educating, and coordinating care regarding the above mentioned plan. - Physical Exam Constitutional: chronically ill appearing, other (confused but now answering appropriately) Eyes: PERRL Ears, Nose, Mouth, Throat: moist mucous membranes Cardiovascular: regular rate and rhythym Respiratory: no respiratory distress, reduced air movement Gastrointestinal: normoactive bowel sounds, soft, non-tender abdomen Genitourinary: no bladder fullness Skin: warm Musculoskeletal: generalized weakness Neurologic: CN II-XII Intact (appropriately answering questions and able to explain why in the hospital and event that have taken place) ICD10 Worksheet Patient Problems: Problems Problem Status Onset Amyloidosis Acute Chest pain Acute Elevated troponin Acute Renal failure Acute Headache Active Congestive heart failure Acute Hyperkalemia Acute Syncope Acute
[2018-01-29] MEDS ORDERED: ONDANSETRON 4 MG/2 ML VIAL ONE (08:56)
[2018-01-29] MEDS ORDERED: ONDANSETRON 4 MG/2 ML VIAL IVP PRN (09:00)
--- NOTE | 2018-01-29 09:20 | PDIAF ---
- Diagnosis Diagnosis: amyloid, ESRD Code Status: Do Not Resuscitate - Medication Management Discharge Medications: Medications to Continue on Transfer traMADol [Ultram 50 mg (*)] 50 mg PO Q4 PRN 04/01/17 [Last Taken 01/20/18] Gabapentin [Neurontin 100 MG (*)] 100 mg PO HS 12/24/17 [Last Taken 01/20/18] Acetaminophen [Tylenol 325mg (*)] 650 mg PO Q4HRS PRN tab 12/25/17 [Last Taken 01/21/18 08:00 2 TABS] Acyclovir [Zovirax 200 mg (*)] 200 mg PO DAILY 12/25/17 [Last Taken 01/21/18] Bortezomib [Velcade IV] 0 mg IV TH 12/25/17 [Last Taken 01/20/18] Calcitriol [Calcitriol (*)] 0.5 mcg PO MOWEFR@09 12/25/17 [Last Taken 01/21/18] Cholecalciferol Vit D3 [Vitamin D3 (*)] 1,000 units PO DAILY 12/25/17 [Last Taken 01/21/18] Cyclophosphamide 450 mg PO TH 12/25/17 [Last Taken 01/20/18] Dexamethasone [Decadron 4 MG (*)] 20 mg PO TH PRN 12/25/17 [Last Taken 01/20/18] Finasteride [Proscar 5 MG (*)] 5 mg PO DAILY 12/25/17 [Last Taken 01/21/18] HYDROmorphone HCL [Dilaudid 2 mg (*)] 2 - 4 mg PO Q4HRS PRN #30 tab 12/25/17 [ Last Taken 01/21/18 4MG] LORazepam [Ativan (*)] 0.5 mg PO Q6 PRN 12/25/17 [Last Taken 01/20/18] Metoprolol Tartrate [Lopressor 25 mg (*)] 25 mg PO DAILY 12/25/17 [Last Taken ] Ondansetron Odt [Zofran Odt 4 mg (*)] 4 mg PO Q8 PRN 12/25/17 [Last Taken ] Pantoprazole Sodium [Protonix 40mg (*)] 40 mg PO DAILY 12/25/17 [Last Taken ] Potassium Cl [Klor-Con 10 meq (RX)] 10 meq PO DAILY 12/25/17 [Last Taken ] Sevelamer Carbonate [Renvela] 800 mg PO BIDMEAL 12/25/17 [Last Taken 01/20/18 18 :00] Tamsulosin HCl [Flomax 0.4 MG (*)] 0.4 mg PO DAILY 12/25/17 [Last Taken 09:00] Discharge Medications: Refer to the Discharge Home Medication list for PRN reason. - Orders Services needed: Home Care, Registered Nurse, Certified Medical Billing Clerk Home Care Face to Face: I certify that this patient was under my care and that I had the required [id number] encounter meeting the encounter requirements on the discharge day. My findings support the fact that the patient is homebound as defined in Home Care Face to Face Continued: CMS Chapter 7 Medicare Benefits Manual 30.1.1 , The condition of the patient is such that there exists a normal inability to leave home and consequently, leaving home would require a considerable and taxing effort. Isolation Type: Chemotherapy Isolation - Follow Up Care Current Providers and Referrals: Angel Quiñones MD [Medical Doctor] - As per Instructions
[2018-01-29] MEDS: ONDANSETRON DISINTEGRATING 4 MG TAB PO SCH ×3 (10:23→18:06)
[2018-01-29] MEDS: SENNOSIDES/DOCUSATE SODIUM TAB PO SCH ×2 (10:23→23:25)
--- NOTE | 2018-01-29 10:41 | ASMTCMCOM ---
CM Note CM Note Notes: Chart reviewed. Patient has discharge order. Spoke with Hospice as patient had an event of nausea and unresponsiveness this am . He is currently on high amount of oxygen. Maryon to make sure oxygen is in the home. Family had intended to transport but considering events and oxygen needs will use [facility]. Discussed these issues with his Yamilet as well. Awaiting confirmation that home oxygen is in place. CM to follow. Orders sent via allscripts with DNR status. Plan home with hospice. Date Signed: 01/29/2018 10:40 AM Electronically Signed By:Netta Almaraz RN
--- NOTE | 2018-01-29 12:05 | GDS ---
[f rep st] DISCHARGE SUMMARY DISCHARGE DIAGNOSIS: 1. Amyloidosis with cardiac involvement. 2. End-stage renal disease on peritoneal dialysis. 3. Volume overload, acute on chronic chest pain, pancytopenia, chronic diastolic heart failure. 4. Hypertension. 5. History of deep venous thrombosis. HISTORY OF PRESENT ILLNESS: A 72-year-old male with amyloid with cardiac involvement, end-stage renal disease, on peritoneal dialysis presents with chest pain. He has had chest pain related to his chemotherapy, which he started this November. He was last dosed chemo the day prior to admission and that is when he developed chest pain and was more significant today. He was lying in bed and it radiated to both arms with associated numbness. Also with teeth pain, which is consistent with his prior episodes. HOSPITAL COURSE: 1. Acute chest pain secondary to chemotherapy for amyloidosis. He did have an indeterminate troponin but normal catheterization in 03/2017. My colleague had a thorough discussion with them and they agreed for hospice at home to focus on pain and symptom management. 2. Amyloidosis, resulting in cardiac involvement as well as end-stage renal disease. He received chemotherapy 01/27 with significant side effects. This will be discontinued. 3. End-stage renal disease, ongoing peritoneal dialysis and removal for palliation. 4. Pancytopenia secondary to chemotherapy and amyloidosis. 5. Chronic diastolic heart failure. Volume taken off with HD. 6. Acute hypoxic respiratory failure due to volume overload. 7. History of DVT, not on anticoagulation. 8. Bradycardia. This morning he had a syncopal episode and was bradycardic to the 30s. At this point, heart rate in the 80s. We will not do a further evaluation. 9. Goals. I had a conversation with patient today as he was still full code. Given the fact that he is going home on hospice and his goal is comfort, we agreed that resuscitation would be more harmful and he has agreed for DNR. Plan for discharge with hospice today. 10. Disposition. Patient is stable for discharge home with family with [facility]. ADDENDUM: DATE: 01/30/2018. Patient stayed overnight, because the family's home was not prepared for hospice. Planned for DC today, but patient this afternoon with family at bedside. PHYSICAL EXAMINATION: this morning. VITAL SIGNS: Today, temperature 36.8. GENERAL: Lying in bed fatigued, opens eyes to voice. CV: Regular rate and rhythm. LUNGS: Diminished throughout. No wheezes or crackles. ABDOMEN: Soft, nontender, nondistended. Positive bowel sounds. : No Rajput. MUSCULOSKELETAL: 5 /5 strength. NEUROLOGIC: 2 through 12 intact. PSYCH: Alert and oriented x3, but somnolent, but answers appropriately. DISPOSITION: Patient stable for discharge home. /[id number]/MODL and [id number]/MODL Time spent on DC 45 min counseling patient's family of grief support, working with PARAMJIT JIMÉNEZ
[2018-01-29] MEDS: ACYCLOVIR 200 MG CAP PO SCH (12:28)
[2018-01-29] MEDS: FINASTERIDE 5 MG TAB PO SCH (12:28)
[2018-01-29] MEDS: GABAPENTIN 100 MG CAP PO SCH ×2 (12:28→23:24)
[2018-01-29] MEDS: CHOLECALCIFEROL VIT D3 1,000 UNITS TAB PO SCH (12:28)
[2018-01-29] MEDS: POTASSIUM CL 10 MEQ TAB PO SCH (12:29)
[2018-01-29] MEDS: METOPROLOL SUCCINATE XR 25 MG TAB PO SCH (12:29)
[2018-01-29] MEDS: PANTOPRAZOLE SODIUM 40 MG TAB PO SCH (12:29)
[2018-01-29] MEDS: Sevelamer Carbonate [Renvela] 800 MG PO SCH (12:30)
[2018-01-29] MEDS: SIMETHICONE 80 MG TAB CHEW PO SCH ×3 (12:30→23:25)
--- NOTE | 2018-01-29 13:11 | ASMTCMCOM ---
CM Note CM Note Notes: Due to fast decline in patients condition family wishes to postpone dc to home. semiconductor assembler is here and voicing concerns regarding Power of Seafood P[employer]. None in chart. Spoke with patient's son who said his mother may have one and she is looking for it. Otherwise will need to establish proxy. The patient is difficult to arouse at this point. Hospital medicine is aware of family's desire to postpone discharge at this time.CM to follow. Date Signed: 01/29/2018 01:11 PM Electronically Signed By:Netta Almaraz RN
--- NOTE | 2018-01-29 16:32 | SOAPPROG ---
SOAP Progress Note Assessment/Plan: Assessment: 1. Chest pains. Temporally related to chemotherapy. Occurred despite better control of volume. 2. Volume overload. Seems less concerning given more clear association of chest pain with chemotherapy. Should target at whatever weight he leaves Call home PD nurse on Wednesday. Discussed fluid management strategy on dialysis at home. 3. ESRD. Continue PD with cycler at night. Improved to 1800cc UF last night. Cont mix of 2 bags 2.5%, 1 bag 4.25% dialysate again tonight. 4. Malnutrition. Changed to regular diet. 5. Anemia. Hgb 10. S/p procrit. 6. Bradycardia - Stopped BB Plan: 01/29/18 16:28 01/29/18 16:32 01/29/18 16:33 Subjective: Had bradycardic episode this morning. Hospice discharge cancelled. Objective: Vital Signs Temp Pulse Resp BP Pulse Ox 36.8 C 89 16 109/67 94 01/29/18 12:08 01/29/18 12:08 01/29/18 12:08 01/29/18 12:08 01/29/18 12:08 Microbiology 01/23/18 14:22 Blood Culture - Final Blood 01/23/18 14:12 Blood Culture - Final Blood Laboratory Results 01/28/18 03:31 01/28/18 03:31 01/28/18 01/29/18 01/30/18 05:59 05:59 05:59 Intake Total 1570 1200 Output Total 949 1852 Balance 1570 251 -1852 PT 13.6 SEC (12.0-15.0) 01/21/18 12:58 INR 1.02 (0.83-1.16) 01/21/18 12:58 Physical Exam - Physical Exam General Appearance: WD/WN Respiratory: normal breath sounds Cardiac/Chest: regular rate, rhythm Abdomen: soft, other (PD cath in place LLQ) Extremities: swelling ICD10 Worksheet Patient Problems: Problems Problem Status Onset Amyloidosis Acute Chest pain Acute Elevated troponin Acute Renal failure Acute Headache Active Congestive heart failure Acute Hyperkalemia Acute Syncope Acute
[2018-01-29] MEDS: HYDROmorphone HCL/NS 0.5 MG/ML SYR IVP PRN (20:03)
[2018-01-30] MEDS: GENTAMICIN 0.1% 15 GM OINT TP SCH (00:49)
[2018-01-30] MEDS: morphINE 10 MG/0.5 ML UDSYR PO PRN ×2 (05:05→14:19)
[2018-01-30] MEDS: HYDROmorphone HCL/NS 0.5 MG/ML SYR IVP PRN (06:21)
[2018-01-30 08:42] VITALS: BP 80/45
[2018-01-30] MEDS: ONDANSETRON DISINTEGRATING 4 MG TAB PO SCH ×2 (10:29→14:22)
[2018-01-30] MEDS: GABAPENTIN 100 MG CAP PO SCH ×2 (10:29→11:01)
[2018-01-30] MEDS: SIMETHICONE 80 MG TAB CHEW PO SCH ×2 (10:30→14:21)
[2018-01-30] MEDS: SENNOSIDES/DOCUSATE SODIUM TAB PO SCH (10:30)
[2018-01-30] MEDS: ACETAMINOPHEN 325 MG TAB PO PRN (11:01)
--- NOTE | 2018-01-30 11:38 | SOAPPROG ---
SOAP Progress Note Assessment/Plan: Assessment: 1. Chest pains. Temporally related to chemotherapy. Occurred despite better control of volume. 2. Volume overload. Seems less concerning given more clear association of chest pain with chemotherapy. Should target at whatever weight he leaves Call home PD nurse on Wednesday. Discussed fluid management strategy on dialysis at home. 3. ESRD. Continue PD with cycler at night. Improved to 1800cc UF with alternating 2 bags 2.5%, 1 bag 4.25% dialysate Held PD last night due to concern pt actively decompensating and transition of care to hospice. Pt more stable today, responds to questions though does not have insight into his health condition; formal hospice consult pending. Will be available to resume PD if the plan is to continue pressing on 4. Malnutrition. Changed to regular diet. 5. Anemia. Hgb 10. S/p procrit. 6. Bradycardia - Stopped BB Plan: 01/30/18 11:39 01/30/18 11:39 01/30/18 11:41 Subjective: Pt denies complaint. PD held last night due to concern for clinical deterioration and family wanting to pursue hospice. Objective: Vital Signs Temp Pulse Resp BP Pulse Ox 36.8 C 58 L 16 80/45 L 91 L 01/30/18 08:41 01/30/18 08:41 01/30/18 08:41 01/30/18 08:41 01/30/18 08:41 Laboratory Results 01/28/18 03:31 01/28/18 03:31 01/29/18 01/30/18 01/31/18 05:59 05:59 05:59 Intake Total 1200 30 Output Total 949 1852 Balance 251 -1822 PT 13.6 SEC (12.0-15.0) 01/21/18 12:58 INR 1.02 (0.83-1.16) 01/21/18 12:58 Physical Exam - Physical Exam General Appearance: other (lethargic but responds to voice) Respiratory: lungs clear Cardiac/Chest: regular rate, rhythm Abdomen: soft, other (PD cath in place) Extremities: swelling (trace LE) ICD10 Worksheet Patient Problems: Problems Problem Status Onset Amyloidosis Acute Chest pain Acute Elevated troponin Acute Renal failure Acute Headache Active Congestive heart failure Acute Hyperkalemia Acute Syncope Acute
--- NOTE | 2018-01-30 12:06 | PDIAF ---
- Diagnosis Diagnosis: amyloid, ESRD Code Status: Do Not Resuscitate - Medication Management Discharge Medications: Medications to Continue on Transfer traMADol [Ultram 50 mg (*)] 50 mg PO Q4 PRN 04/01/17 [Last Taken 01/20/18] Gabapentin [Neurontin 100 MG (*)] 100 mg PO HS 12/24/17 [Last Taken 01/20/18] Acetaminophen [Tylenol 325mg (*)] 650 mg PO Q4HRS PRN tab 12/25/17 [Last Taken 01/21/18 08:00 2 TABS] HYDROmorphone HCL [Dilaudid 2 mg (*)] 2 - 4 mg PO Q4HRS PRN #30 tab 12/25/17 [ Last Taken 01/21/18 4MG] LORazepam [Ativan (*)] 0.5 mg PO Q6 PRN 12/25/17 [Last Taken 01/20/18] Metoprolol Tartrate [Lopressor 25 mg (*)] 25 mg PO DAILY 12/25/17 [Last Taken ] Ondansetron Odt [Zofran Odt 4 mg (*)] 4 mg PO Q8 PRN 12/25/17 [Last Taken ] Sevelamer Carbonate [Renvela] 800 mg PO BIDMEAL 12/25/17 [Last Taken 01/20/18 18 :00] Tamsulosin HCl [Flomax 0.4 MG (*)] 0.4 mg PO DAILY 12/25/17 [Last Taken 09:00] Carboxymethylcellulose 0.5% [Refresh Plus Drops 0.5%] 1 duy EACHEYE PRN PRN droperette 01/29/18 [Last Taken Unknown] Simethicone [Mylicon] 80 mg PO PCHS tab.chew 01/29/18 [Last Taken Unknown] Discharge Medications: Refer to the Discharge Home Medication list for PRN reason. - Orders Services needed: Home Care, Registered Nurse, Certified Map Drafter Home Care Face to Face: I certify that this patient was under my care and that I had the required [id number] encounter meeting the encounter requirements on the discharge day. My findings support the fact that the patient is homebound as defined in Home Care Face to Face Continued: CMS Chapter 7 Medicare Benefits Manual 30.1.1 , The condition of the patient is such that there exists a normal inability to leave home and consequently, leaving home would require a considerable and taxing effort. Isolation Type: Chemotherapy Isolation Diet Recommendation: no restrictions on diet Diet Texture: Regular Texture Diet - Follow Up Care Current Providers and Referrals: Angel Quiñones MD [Medical Doctor] - As per Instructions
--- NOTE | 2018-01-30 15:13 | ASMTCMCOM ---
CM Note CM Note Notes: Per patient RN patient has passed . Spoke with pt's . They have no plans. CM provided family with list of Mortuaries and cremation services. They daughter and son will go home and then call us with family choice. Call to [facility] to cancel services. Family informed that hospice bereavement team will reach out to them on Wednesday. CM available should other needs arise. The family declined spiritual services at this time. Date Signed: 01/30/2018 03:12 PM Electronically Signed By:Netta Almaraz RN
--- NOTE | 2018-01-30 16:50 | ASMTCMCOM ---
CM Note CM Note Notes: Call placed to [facility] to inquire about decision for home/Cremation Services. The family has chosen [facility] in [place]. epic manager to call [facility] and provide them with families contact numbers. Date Signed: 01/30/2018 04:49 PM Electronically Signed By:Netta Almaraz RN
--- NOTE | 2018-01-31 14:06 | ASDISCHSUM ---
Discharge Information Plan Status:Hospice-Home Medically Cleared to Leave: Discharge Date:01/30/2018 02:32 PM CM D/C Disposition: ADT D/C Disposition: Projected Discharge Date:01/30/2018 11:00 AM Transportation at D/C:None or Unknown Discharge Delay Reason: Follow-Up Date:01/30/2018 11:00 AM Discharge Slot: Final Diagnosis:CP, Renal Failure, Elevated trop Placement Information Referral Type:*Penitentiary/SNF Referral ID:[id number] Provider Name: Address 1: Phone Number: Address 2: Fax Number: City: Selection Factors: State: Referral Type:*Hospice Referral ID:[id number] Provider Name: Address 1: Phone Number: Address 2: Fax Number: City: Selection Factors: State: Patient Contact Information Contact Name:REMY Relationship: Address:[address] City:[facility] Phone: [facility]/Zip Code:[place] [address] Email: Financial Information Financial Class:Medicare Primary Plan Desc:MEDICARE INPATIENT Primary Plan Number:[id number] Secondary Plan Desc:AFSHAN PPO Secondary Plan Number:[id number] Assessment Information [facility] CM Progress Note CM Note CM Note Notes: Pt admitted with CP. Per MD, no interventions recommnded. Pt has also been on PD for 1.5 yrs. Plan is to DC pt tomorrow. Pt lives at home with his and has had DC needs in the past. Anticipate pt will DC with no DC needs. Date Signed: 01/22/2018 04:26 PM Electronically Signed By:Lacy Jerome LCSW [facility] CM Progress Note CM Note CM Note Notes: Patient having CP, on dialysis, 3x/wk in [place] and Chemo 1x/wk. Reports that his needs hip replacements and really unable to help him very much. They do have a son who lives at home and helpful. Patient is interested in HC-PT/OT/RN on discharge. He has had [facility] in the past and prefers them. [facility] does not have availability on Wednesday-call them Wednesday to determine availability later in the week. Date Signed: 01/23/2018 04:27 PM Electronically Signed By:Karen Mari LCSW [facility] CM Progress Note CM Note CM Note Notes: 01/24/2018 Case Management Note Discussed pt during multi disciplinary rounds this morning. Discussed PT recommendations for discharge this afternoon with pt. PT is recommending SNF rehab. Pt states that is unable to provide high levels of support for 24 hour care due to pain in her hips. Pt wishes to discuss d/c plan with his . Left pt a list of local SNF rehab facilities for pt and to explore on Medicare.gov or to visit. Pt uncertain of need for SNF rehab at this time. Case Management will meet with pt tomorrow morning to discuss further. Case Management d/c poc: to be determined. SNF rehab vs home care with 24/7 support. Case Management to follow. Date Signed: 01/24/2018 03:44 PM Electronically Signed By:Michaela Beavers RN [facility] CM Progress Note CM Note CM Note Notes: 01/25/2018 Case Management Note Met w/pt and Stephen from Palliative Team. Please see palliative note for details. Investigated SNF requirements for oral chemo and Peritoneal Dialysis. [facility] can accept pt if he is part of the [facility] system. [facility] is the facility if he is followed by [facility]. Pt will be expected to bring all supplies for dialysis as well as his oral chemo agent. PT worked with pt and is recommending home with home care. Pt has expressed that he does not want to burden his and that her hips "are bad". He does have an adult son who lives with him. [facility] has accepted pt for service. There is a follow up palliative meeting with pt and tomorrow morning. Case Management d/c poc: to be determined pending outcome of palliative meeting on Wednesday. Case Management to follow. Date Signed: 01/25/2018 04:36 PM Electronically Signed By:Michaela Beavers RN [facility] CM Progress Note CM Note CM Note Notes: 01/26/2018 Case Management Note Attended palliative meeting with Stephen and pt [facility] visited with case management and has referral from [facility] to see patient. Tavares to contact Stephen tomorrow to coordinate care. Please see palliative note for details. Case Management is uanble to find a SNF able to do Peritoneal dialysis. Home d/c is challenging d/t level of care pt is requiring currently. Pain control is also an issue that is difficult to manage in the home setting. Case Management d/c poc: to be determined pending outcome of further palliative conversations. Case Management to follow. Date Signed: 01/26/2018 05:04 PM Electronically Signed By:Michaela Beavers RN [facility] CM Progress Note CM Note CM Note Notes: Pts case discussed in morning rounds. Pt will d/c with [facility] once medically stable to d/c. Pt had a round of chemo medications today. CM discussed case w/ Stephen. CM to follow. Plan: [facility]ospice at home Date Signed: 01/27/2018 04:41 PM Electronically Signed By:BRANDIE Crabtree [facility] CM Progress Note CM Note CM Note Notes: Pts case discussed in tx rounds. Evi from [facility] met w/ pt today to coordinate d/c. Tentative d/c for tomorrow. Our RN will need to call report to [facility]. Pts family would prefer to bring pt home. Evi set up DME to be delivered to pts home between 8AM-12PM. [facility] is requesting that pt discharges w/ physical prescriptions in hand. CM to follow. Plan: Home w/ [facility] Date Signed: 01/28/2018 02:25 PM Electronically Signed By:BRANDIE Crabtree [facility] CM Progress Note CM Note CM Note Notes: Chart reviewed. Patient has discharge order. Spoke with Hospice as patient had an event of nausea and unresponsiveness this am . He is currently on high amount of oxygen. Tavares to make sure oxygen is in the home. Family had intended to transport but considering events and oxygen needs will use [facility]. Discussed these issues with his [facility] as well. Awaiting confirmation that home oxygen is in place. CM to follow. Orders sent via allscripts with DNR status. Plan home with hospice. Date Signed: 01/29/2018 10:40 AM Electronically Signed By:Netta Almaraz RN [facility] Progress Note CM Note CM Note Notes: Due to fast decline in patients condition family wishes to postpone dc to home. wet trimmer is here and voicing concerns regarding Power of Public Service Administrator. None in chart. Spoke with patient's son who said his mother may have one and she is looking for it. Otherwise will need to establish proxy. The patient is difficult to arouse at this point. Hospital medicine is aware of family's desire to postpone discharge at this time.CM to follow. Date Signed: 01/29/2018 01:11 PM Electronically Signed By:Netta Almaraz RN [facility] Progress Note CM Note CM Note Notes: Per patient RN patient has passed . Spoke with pt's . They have no plans. CM provided family with list of Mortuaries and cremation services. They daughter and son will go home and then call us with family choice. Call to [facility] to cancel services. Family informed that hospice bereavement team will reach out to them on Wednesday. CM available should other needs arise. The family declined spiritual services at this time. Date Signed: 01/30/2018 03:12 PM Electronically Signed By:Netta Almaraz RN [facility] CM Progress Note CM Note CM Note Notes: Call placed to [facility] to inquire about decision for home/Cremation Services. The family has chosen [facility] in [place]. industrial analyst to call [facility] and provide them with families contact numbers. Date Signed: 01/30/2018 04:49 PM Electronically Signed By:Netta Almaraz RN Intervention Information
== END 2018-01-30 14:32 | disposition expired | DRG 545 ==
LOC: OBSVTOIN 15:00 → F2W 17:50
PROVIDERS: ADMIT Internal Medicine; ATTEND Internal Medicine
DX: E85.4 Organ-limited amyloidosis (principal); J96.01 Acute respiratory failure with hypoxia; I43 Cardiomyopathy in diseases classified elsewhere; I13.0 Hypertensive heart and chronic kidney disease with heart failure and stage 1 through stage 4 chronic kidney disease, or unspecified chronic kidney disease; I50.32 Chronic diastolic (congestive) heart failure; E11.22 Type 2 diabetes mellitus with diabetic chronic kidney disease; N18.9 Chronic kidney disease, unspecified; Z99.2 Dependence on renal dialysis; D61.810 Antineoplastic chemotherapy induced pancytopenia; E87.1 Hypo-osmolality and hyponatremia; E87.6 Hypokalemia; E87.2 Acidosis; E46 Unspecified protein-calorie malnutrition; D63.1 Anemia in chronic kidney disease; R51 Headache; K59.00 Constipation, unspecified; I25.10 Atherosclerotic heart disease of native coronary artery without angina pectoris; C85.10 Unspecified B-cell lymphoma, unspecified site; Z85.46 Personal history of malignant neoplasm of prostate; Z86.718 Personal history of other venous thrombosis and embolism; Z96.659 Presence of unspecified artificial knee joint
CPT/HCPCS: 96365; 97110-GP; 97116-GP; 97162-GP; 97165-GO; 97530-GO; 97530-GP; 97535-GO; G0378; G8978-GP-CJ; G8979-GP-CI; G8987-GO-CJ; G8988-GO-CI; G8989-GO-CJ; J0885; J1170; J1644; J2405; J8530; J9041